=== PATIENT | female | born 1955 | race African-American/Black ===

== ENCOUNTER 2018-08-30 13:44 | Inpatient (IN) | END 2018-09-02 17:45 | disposition home or self-care (01) | DRG 305 ==

== ENCOUNTER 2018-11-20 08:28 | Inpatient (IN) | END 2018-11-22 11:40 | disposition left against medical advice (07) | DRG 189 ==

== ENCOUNTER 2019-01-12 10:21 | Inpatient (IN) | payer OTHER ==
[~2019-01-12] VITALS: Ht 157.5 cm; Wt 59.6 kg
[~2019-01-12 10:21] MED LIST: DOCU100T PO; FLUT1AER INHALATION; IPRA3AMP29 INHALATION; METO-319 PO; NIFE60TA18 PO; PANT40TA3 PO; TIOT18CA INHALATION
[2019-01-12 12:42] VITALS: PULSE 91
[2019-01-12 12:51] VITALS: Ht 157.5 cm; Wt 59.6 kg
[2019-01-12] MEDS ORDERED: morphine 2 MG INJ IV PRN (13:30)
[2019-01-12] MEDS ORDERED: DOCUSATE SODIUM 100 MG CAP PO PRN (13:30)
[2019-01-12] MEDS ORDERED: NACL 0.9% 3 ML SYG IV SCH (13:30)
[2019-01-12] MEDS ORDERED: HYDROCODONE/APAP (5/325) TAB PO PRN (13:30)
[2019-01-12] MEDS ORDERED: ACETAMINOPHEN 325 MG TAB PO PRN (13:30)
[2019-01-12] MEDS ORDERED: MAGNESIUM HYDROXIDE 30ML CUP PO PRN (13:30)
[2019-01-12 13:40] VITALS: BP 186/121; PULSE 91; RESP 18
[2019-01-12] MEDS ORDERED: FURO20TA3 PO (14:40)
[2019-01-12] MEDS ORDERED: ISOS60TA PO (14:40)
[2019-01-12] MEDS ORDERED: CARV25TA79 PO (14:40)
[2019-01-12] MEDS ORDERED: ASPI-903 PO (14:51)
[2019-01-12] MEDS ORDERED: CLON1PAT3 TD (14:51)
--- NOTE | 2019-01-12 15:06 | HP ---
DATE OF ADMISSION: 01/12/2019 IDENTIFICATION: This is a 63-year-old female transferred from outside hospital. CHIEF COMPLAINT: Shortness of breath. HISTORY OF PRESENT ILLNESS: A 63-year-old female with past medical history based on records of quest ionable COPD, CHF, CKD, anemia, hypertension, drug abuse, questionable hepatitis C, who was transferr ed from outside hospital due to shortness of breath symptoms. The patient has been having these symp toms over the last few weeks. She has also been complaining of PND, but no chest pain, no nausea, vo miting, no fevers or chills, no abdominal pain, no headaches. When she went to the outside hospital, she had some labs performed that showed elevated BNP of 19,000. She also had a chest x-ray performe d that showed signs of possible CHF and small bilateral pleural effusions. She was given a dose of L asix as well as antibiotics at the outside hospital before being transferred here. The patient was a lso found with a creatinine of 3.39. When she was here at the hospital back in 10/2018, her creatini ne at that time was 2.76. PAST MEDICAL HISTORY: As stated above, bilateral renal artery stenosis. ALLERGIES: NO KNOWN DRUG ALLERGIES. HOME MEDICATIONS: 1. Aspirin 81 mg. 2. Coreg 25 mg twice a day. 3. Clonidine 0.3 mg patch daily. 4. Imdur 30 mg daily. 5. Nifedipine 60 mg daily. PAST SURGICAL HISTORY: Unknown. SOCIAL HISTORY: Smokes everyday, 1 pack a day, unclear how long she has been smoking. Denies alcoho l use. She has positive history of cocaine, marijuana and methamphetamine use. Apparently, she is s till using this. FAMILY HISTORY: Noncontributory. PHYSICAL EXAMINATION: VITAL SIGNS: Today, T-max 97.8, pulse 82 to 105, respirations 16 to 25, blood pressure 200 to 156 sy stolic over 109 to 96 diastolic, satting 100% room air. GENERAL: The patient is lying in bed, answering questions appropriately, in no acute distress. HEENT: Pupils are equal, round, reactive to light. Extraocular muscles are intact. NECK: Supple. No thyromegaly. LUNGS: Slightly distant breath sounds bilaterally. CARDIOVASCULAR: S1, S2 heard. No rubs or gallops. ABDOMEN: Soft, nontender, nondistended. Normal bowel sounds. No rebound or guarding. MUSCULOSKELETAL: Trace pitting edema bilateral lower extremities to the mid calves. NEUROLOGIC: No focal deficits. LABORATORIES: WBC 13.8, hemoglobin 10.3, hematocrit 33.1, platelets 151. She had a troponin perform ed there that was normal. Sodium 139, potassium 4.1, chloride 102, CO2 of 19, BUN of 65, creatinine 3.39, glucose 124. Again, the BNP is 19,000. DIAGNOSTIC DATA: I mentioned the chest x-ray findings. ASSESSMENT AND PLAN: A 63-year-old female with prior history of chronic kidney disease, questionable chronic obstructive pulmonary disease, congestive heart failure, hypertension, bilateral renal arter y stenosis, questionable hepatitis C and anemia who comes in with shortness of breath with signs of c ongestive heart failure exacerbation and also acute on chronic renal insufficiency. 1. Shortness of breath again likely secondary to congestive heart failure exacerbation. Admit the p atient. Keep head of the bed greater than 30 degrees. Repeat the echocardiogram. Consider cardiolo gy consult. Put her on Lasix cautiously for now. Monitor ins and outs. Check TSH, A1c, lipid panel . Monitor daily weights. Get PT, OT consults. 2. Possible upper respiratory infection. She does have a white count of 13.8. No fevers, but her c hest x-ray did show signs of some mild infiltrates, fluid versus otherwise, so we will put her on Lev aquin for now, Tylenol p.r.n. pain and fevers. Follow up final culture results. 3. Acute on chronic kidney disease. Again, creatinine appears to be more elevated than when she was last here at this hospital 2 months ago, so we will monitor BUN and creatinine levels very carefully and urine output and we will get a renal consult as well. 4. History of hypertension. She presented at the outside hospital with mild hypertensive urgency. Blood pressure is presently stable for now. Continue hydralazine p.r.n. Consider restarting her melanie nidine which she takes at home. 5. Possible history of bilateral renal artery stenosis. Again, we will follow up renal recommendati ons and monitor for now including vital signs. 6. Deep venous thrombosis prophylaxis, heparin subcutaneously. 7. Gastrointestinal prophylaxis, proton pump inhibitor. Dictated By: MICHAEL MOLINA Conf#: [id number] DID#: [id number] CC: CORINA GARCIA MD; KINZA MONTENEGRO MD;*[facility]*
--- NOTE | 2019-01-12 15:20 | RADRPT ---
Echocardiogram Report Patient Name: Francy KEENANnt ID: [id number] : 1955 (63y 1m)Study Date: 01/12/2019 1:23:12 PM Gender: FAccession #: [id number] Tech: Chelsi Umanzor [facility] Location: [facility] Ref.Physician: MICHAEL STARR Height(Cm): BSA: Weight(Kg): Quality: AdequateAccount #: Procedures: Echocardiographic Report: Transthoracic echocardiogram with complete 2D, M-Mode, and doppler examination. Indications: Shortness of breath. Measurements: 2D/M Mode Doppler Measurement Value Normal Range Measurement Value Normal Range LVIDd 2D 3.4 [ 3.8 - 5.2 ] cm AV Peak Deshaun 1.4 [ 100.0 - 170.0 ] cm/sec LVIDs 2D 2.4 [ 2.2 - 3.5 ] cm AV Peak PG 8.0 [ 2.0 - 9.0 ] mmHg LVPWd 2D 1.5 [ 0.6 - 0.9 ] cm LVOT Peak Deshaun 0.8 [ 70.0 - 110.0 ] cm/sec IVSd 2D 1.5 [ 0.6 - 0.9 ] cm LVOT Peak PG 2.0 [ 2.0 - 6.0 ] mmHg AoR Diam 2D 2.6 [ 2.3 - 3.1 ] cm MV E Peak Deshaun 0.6 [ 60.0 - 130.0 ] cm/sec EDV 2D 46.8 [ 46.0 - 106.0 ] ml MV A Peak Deshaun 0.7 [ 100.0 - 120.0 ] cm/sec ESV 2D 20.2 [ 14.0 - 42.0 ] ml MV E/A 0.9 [ 0.8 - 1.5 ] ratio EF 2D 56.8 [ 54.0 - 74.0 ] percent MV Decel Time 155 [ 104 - 258 ] msec LA Dimen 2D 4.1 [ 2.7 - 3.8 ] cm Lat E` Deshaun 0.1 [ 10.0 - 15.0 ] cm/sec Lateral E/E` 10.3 [ 1.0 - 2.0 ] ratio MV E/A 0.9 [ 0.8 - 1.5 ] ratio TR Peak Deshaun 2.4 [ 100.0 - 280.0 ] cm/sec TR Peak PG 23.0 mmHg RVSP 31.0 [ 10.0 - 36.0 ] mmHg RA Pressure 8.0 mmHg Findings: Left Ventricle: Normal left ventricular systolic function. Normal left ventricular cavity size. Severe concentric left ventricular hypertrophy. Ejection fraction is visually estimated at 65 %. Tissue Doppler/Mitral Doppler indices are consistent with impaired relaxation (Stage I diastolic dysfunction). Right Ventricle: Normal right ventricular size. Normal right ventricular systolic function. Left Atrium: There is mild enlargement of left atrium. Right Atrium: The right atrium is normal in size. Mitral Valve: Mitral valve leaflets appear mildly thickened. Mild mitral annular calcification. Mild mitral valve regurgitation. Aortic Valve: Normal appearance of the aortic valve. No significant aortic stenosis or insufficiency. Tricuspid Valve: Normal appearance of the tricuspid valve. Estimated peak PA systolic pressure 31 mmHg. There is mild tricuspid regurgitation. Pulmonic Valve: Normal pulmonic valve appearance. Pericardium: Normal pericardium with no significant pericardial effusion. Aorta: Normal aortic root. IVC: Normal size and no respiratory collapse consistent with elevated right atrial pressure. Conclusions: Normal left ventricular systolic function. Normal left ventricular cavity size. Severe concentric left ventricular hypertrophy. Ejection fraction is visually estimated at 65 %. Tissue Doppler/Mitral Doppler indices are consistent with impaired relaxation (Stage I diastolic dysfunction). Normal right ventricular size. Normal right ventricular systolic function. There is mild enlargement of left atrium. The right atrium is normal in size. Mild mitral valve regurgitation. No significant aortic stenosis or insufficiency. Estimated peak PA systolic pressure 31 mmHg. There is mild tricuspid regurgitation. Normal pericardium with no significant pericardial effusion. Electronically Signed By: Marcello Edwards 2019-01-12 15:19:44 PST
[2019-01-12] MEDS: LORAZEPAM 2 MG INJ IV PRN (15:43)
[2019-01-12] MEDS: ALBUTEROL/IPRATROPIUM (NEB) 3 ML AMP HHN PRN (15:47)
[2019-01-12 16:00] VITALS: PULSE 93
[2019-01-12 17:00] VITALS: BP 181/104; PULSE 98
--- NOTE | 2019-01-12 18:23 | QN ---
Documentation Comment SEEN AND EXAMINED JESSICA NOLAN MD Jan 12, 2019 18:23
[2019-01-12] MEDS ORDERED: CLONIDINE 0.3 MG/24 HR PATCH TRANSDERM SCH (18:30)
[2019-01-12] MEDS: NIFEdipine (XL) 60 MG TAB PO SCH (18:51)
[2019-01-12] MEDS: ISOSORBIDE MONONITRATE(SR)60 MG TAB PO SCH (18:51)
--- NOTE | 2019-01-12 19:11 | CONS ---
DATE OF ADMISSION: 01/12/2019 DATE OF CONSULTATION: TYPE OF CONSULTATION: Renal. REASON FOR ADMISSION: Possible acute on chronic renal failure. HISTORY OF PRESENTING ILLNESS: This is a 63-year-old -Italian lady with a past medical history of congestive heart failure, COPD, CKD stage III-B, anemia, hypertension, drug abuse, history of a questionable renal artery stenosis as per mentioned in the notes, hepatitis C, transferred from outside hospital secondary to shortness of breath for 1 day. The patient said that she has been having symptoms over the past few weeks were worse for 1 day. She is complaining of PND. No chest pain. The patient went to [facility]. There, the patient was found to have sodium 139, potassium 4.1, chloride 109, bicarbonate 19, BUN of 65, creatinine 3.39. Of note, the patient had multiple AKIs in the past. In 10/2018, creatinine was 4.22 here in the hospital and on discharge was 3.59, then again she was admitted and creatinine on 11/17/2018 was 2.26. In the outside hospital, the patient was found to have BNP of 19,000. A chest x-ray showed CHF and small bilateral effusion. She was given dose of Lasix and was transferred to [facility]. PAST MEDICAL HISTORY: 1. Hypertension. 2. Hyperlipidemia. 3. Hypercholesterolemia. 4. Hypertension, uncontrolled. 5. Bilateral renal artery stenosis; however no renal ultrasound can be found. ALLERGIES: NONE. MEDICATIONS TAKING AT HOME: 1. Aspirin 81. 2. Coreg 25 b.i.d. 3. Clonidine 0.3 mg patch daily. 4. Imdur 30. 5. Nifedipine 60. PAST SURGICAL HISTORY: None. SOCIAL HISTORY: Smokes 1 pack of cigarettes per day. Denies any alcohol use. The patient has a positive history of cocaine, marijuana, amphetamine. FAMILY HISTORY: Noncontributory. REVIEW OF SYSTEMS: The patient has some shortness of breath. Some orthopnea, PND. Has some lower extremity edema. Denies any headache, any blurry vision. Denies any hematemesis, any melena. Denies any focal neurological deficit. PHYSICAL EXAMINATION: VITAL SIGNS: T-max is 97.8, pulse 82, respirations 16, blood pressure 200 to 156 systolic over 109, saturating 100% on room air. GENERAL: The patient is lying in bed, answering questions appropriately. HEENT: Pupils are equal, round, reactive to light. NECK: Supple. JVD appreciated. LUNGS: Decreased breath sounds bilaterally. HEART: Normal S1, S2. No rubs, murmurs or gallop. ABDOMEN: Soft, nontender, nondistended. EXTREMITIES: There is trace pitting edema. LABORATORY DATA: White count there was 13.8, hemoglobin 10.3, platelet count 151. Troponin performed there was normal. Sodium 139, potassium 4.1, chloride 102, bicarbonate of 19, BUN of 65, creatinine 3.39. BNP was 19,000. DIAGNOSTIC DATA: Chest x-ray shows chronic congestive heart failure. ASSESSMENT AND PLAN: This is a 63-year-old female who presented with: 1. Shortness of breath likely secondary to congestive heart failure. worsening renal disease 2. acute on chronic renal disease. On last admission in 10/2018, already creatinine was in 3.59 and then had peaked up to 4.2 and on discharge was 2.76; however on this admission was 3.39. It could be very well because of cardiorenal disease versus worsening of renal artery stenosis. The patient has history of hepatitis C, could be possibility of some glomerulonephritis as well. Pt has been non compliant with meds 3. History of proteinuria. 4. Hypertension, uncontrolled. We will evaluate for renal artery stenosis. I am not sure if patient is compliant with her medications. 5. History of hepatitis C. PLAN: 1. At this period of time, the patient is admitted to telemetry. 2. We will continue the patient on Lasix 40 IV daily. 3. We will check for UA. 4. We will check for proteinuria. 5. Continue the patient on home blood pressure medicines which have not been started yet 6. We will get the renal Doppler to rule out renal artery stenosis. 7. Cardiology consultation should be requested. 8. Echo should be requested. Rest of the treatment will depend on the patient's hospitalization course. Dictated By: JESSICA KELLEY/MICHELLE Conf#: [id number] DID#: [id number] CC: CORINA GARCIA MD; KINZA MONTENEGRO MD;*[facility]* MTDD
[2019-01-12 20:01] VITALS: BP 185/110; PULSE 99; RESP 19
[2019-01-12 20:13] VITALS: PULSE 102
[2019-01-12] MEDS: HEPARIN 5,000 UNIT/1 ML VIAL SC SCH (20:48)
[2019-01-13] VITALS (12 sets, daily range): BP systolic 101–173; BP diastolic 64–95; PULSE 63–104; RESP 16–18
[2019-01-13] MEDS: NITROGLYCERIN (SL) 0.4 MG TAB SL PRN (03:53)
[2019-01-13] MEDS: PANTOPRAZOLE (EC) 40 MG TAB PO SCH (05:24)
[2019-01-13] MEDS ORDERED: FUROSEMIDE 40 MG INJ IV SCH ×2 (09:00)
[2019-01-13] MEDS ORDERED: LEVOFLOXACIN 750MG/D5W (PMX) 150 ML IVPB SCH (09:00)
[2019-01-13] MEDS: ISOSORBIDE MONONITRATE(SR)60 MG TAB PO SCH (09:21)
[2019-01-13] MEDS: NIFEdipine (XL) 60 MG TAB PO SCH (09:21)
[2019-01-13] MEDS: HEPARIN 5,000 UNIT/1 ML VIAL SC SCH ×2 (09:24→21:24)
[2019-01-13] MEDS: LORAZEPAM 2 MG INJ IV PRN (11:29)
--- NOTE | 2019-01-13 12:34 | CONS ---
[facility] Rosie [facility] Unit Number: [id number] Date of : 1955 Patient Status: Admitted Inpatient Attending Doctor: Lilliana Smallwood Edit: JESSICA NOLAN MD on 01/13/19 @ 17:21 SEEN and examined with SECURITY RESEARCHER Acute om chronic renal failure? ATN/CARDIORENA; Renal doppler pending hold lasix uA 1+proteinuria bp control Assessment/Plan Assessment/Plan Hospital Course (Demo Recall) 1. Shortness of breath likely secondary to congestive heart failure. 2. Questionable acute on chronic renal disease. On last admission in 10/2018, already creatinine was in 3.59 and then had peaked up to 4.2 and on discharge was 2.76; however on this admission was 3.39. It could be very well because of cardiorenal disease versus worsening of renal artery stenosis. The patient has history of hepatitis C, could be possibility of some glomerulonephritis as well. 3. History of proteinuria. 4. Hypertension, controlled in house. We will evaluate for renal artery stenosis. Pt is more likely is not compliant with medications at home 5. History of hepatitis C. Assessment/Plan (Daily) 1. Avoid nephrotoxic drugs 2. C/w Lasix 40 IV daily. 3. Start phosphorus binding medication 4. Mild proteinuria, nephrotic syndrome. 5. Continue the patient on home blood pressure medicines. 6. Renal Doppler to rule out renal artery stenosis pending. 7. Cardiology consultation should be requested. 8. Echo 65 % function preserved. 9. renally dose all medications Consultation Date/Type/Reason Admit Date/Time Jan 12, 2019 at 12:23 Initial Consult Date 01/12/2019 Type of Consult nephrology Reason for Consultation Dr Manzo Date/Time of Note DATE: 01/13/19 TIME: 12:29 Exam/Review of Systems Exam Vitals Vital Signs Date Temp Pulse Resp B/P (MAP) Pulse Ox O2 O2 Flow FiO2 Time Delivery Rate 01/13/19 72 12:13 01/13/19 98.3 18 119/78 98 Nasal 11:48 (92) Cannula 01/13/19 2.0 08:00 01/12/19 28 15:49 Intake and Output 01/12/19 01/12/19 01/13/19 1515:00 23:00 07:00 IntakeIntake Total 200 ml 250 ml BalanceBalance 200 ml 250 ml Constitutional: alert, oriented Respiratory: clear to auscultation Cardiovascular: regular rate and rhythm Gastrointestinal: soft Results Result Diagram: 01/13/19 0705 01/13/19 0704 Results 24hrs Laboratory Tests Test 01/12/19 14:08 01/12/19 14:45 01/13/19 07:04 01/13/19 07:05 Prothrombin Time 13.8 Prothrombin Time 1.1 Ratio INR International 1.05 Normalized Ratio Activated 44.9 H Partial Thromboplast Time Free Thyroxine 1.23 Urine Color STRAW Urine Clarity CLEAR Urine pH 5.0 Urine Specific 1.009 [place] Urine Ketones NEGATIVE Urine Nitrite NEGATIVE Urine Bilirubin NEGATIVE Urine Urobilinogen NEGATIVE Urine Leukocyte NEGATIVE Esterase Urine Microscopic 4 RBC Urine Microscopic 1 WBC Urine Squamous FEW Epithelial Cells Urine Hemoglobin 1+ H Urine Random Sodium 117 H Urine Glucose NEGATIVE Urine Total Protein 1+ H Sodium Level 141 Potassium Level 4.1 Chloride Level 110 Carbon Dioxide Level 21 Anion Gap 10 Blood Urea Nitrogen 67 H Creatinine 3.67 H Est Glomerular 15 L Filtrat Rate mL/min Glucose Level 100 Hemoglobin A1c 5.9 Calcium Level 8.4 Phosphorus Level 5.7 H Magnesium Level 2.0 Triglycerides Level 88 Cholesterol Level 166 LDL Cholesterol, 105 Calculated HDL Cholesterol 43 Cholesterol/HDL 3.8 Ratio Thyroid Stimulating 3.290 Hormone (TSH) White Blood Count 6.5 # Red Blood Count 3.63 L Hemoglobin 8.5 L Hematocrit 28.3 L Mean Corpuscular 78.0 L Volume Mean Corpuscular 23.4 L Hemoglobin Mean Corpuscular 30.0 L Hemoglobin Concent Red Cell 18.2 H Distribution Width Platelet Count 180 # Mean Platelet Volume 9.6 Immature 0.500 H Granulocytes % Neutrophils % 76.3 Lymphocytes % 13.5 L Monocytes % 7.3 Eosinophils % 1.9 Basophils % 0.5 Nucleated Red Blood 0.0 Cells % Immature 0.030 Granulocytes # Neutrophils # 4.9 Lymphocytes # 0.9 Monocytes # 0.5 Eosinophils # 0.1 Basophils # 0.0 Nucleated Red Blood 0.0 Cells # Medications Medication Current Medications IV Flush (NS 3 ml) 3 ml PER PROTOCOL IV ; Start 01/12/19 at 13:30 Ondansetron HCl (Zofran Inj) 4 mg Q6H PRN IV NAUSEA/VOMITING; Start 01/12/19 at 13:30 Acetaminophen (Tylenol Tab) 650 mg Q6H PRN PO .PAIN 1-3 OR TEMP; Start 01/12/19 at 13:30 Acetaminophen/ Hydrocodone Bitart ([place]erson (5/325)) 1 tab Q6H PRN PO .MOD PAIN 4- 6; Start 01/12/19 at 13:30 Morphine Sulfate (morphine) 2 mg Q4H PRN IV .SEVERE PAIN 7-10; Start 01/12/19 at 13:30 Docusate Sodium (Colace) 100 mg Q12H PRN PO .CONSTIPATION; Start 01/12/19 at 13:30 Magnesium Hydroxide (Milk Of Mag) 30 ml DAILY PRN PO .CONSTIPATION; Start 01/12/19 at 13:30 Pantoprazole (Protonix Tab) 40 mg DAILY@06 PO Last administered on 01/13/19at 05:24; Admin Dose 40 MG; Start 01/13/19 at 06:00 Heparin Sodium (Porcine) (Heparin (5000 Units/1ml)) 5,000 unit Q12 SC Last administered on 01/13/19at 09:24; Admin Dose 5,000 UNIT; Start 01/12/19 at 21:00 Lorazepam (Ativan) 0.5 mg Q6H PRN IV ANXIETY Last administered on 01/13/19at 11:29; Admin Dose 0.5 MG; Start 01/12/19 at 13:30 Albuterol/ Ipratropium (Duoneb) 3 ml Q4H RESP THERAPY PRN HHN SHORTNESS OF BREATH Last administered on 01/12/19at 15:47; Admin Dose 3 ML; Start 01/12/19 at 13:30 Levofloxacin/ Dextrose 150 ml @ 100 mls/hr Q48H IVPB Last administered on 01/13/19at 09:20; Admin Dose 100 MLS/HR; Start 01/13/19 at 09:00 Hydralazine HCl (Apresoline) 10 mg Q6H PRN IV ELEVATED BLOOD PRESSURE; Start 01/12/19 at 13:30 Nitroglycerin (Nitroglycerin (Sl Tab) 0.4 Mg) 1 tab Q5M PRN SL ANGINA Last administered on 01/13/19 03:53; Admin Dose 1 TAB; Start 01/12/19 at 13:30 Carvedilol (Coreg) 25 mg BID PO Last administered on 01/13/19 09:22; Admin Dose 25 MG; Start 01/12/19 at 21:00 Clonidine HCl (Catapres-Tts 3 Patch) 0.3 patch Q7D TRANSDERM Last administered on 01/12/19 20:44; Admin Dose 0.3 PATCH; Start 01/12/19 at 18:30 Isosorbide Mononitrate (Imdur) 60 mg DAILY PO Last administered on 01/13/19 09:21; Admin Dose 60 MG; Start 01/12/19 at 18:30 Nifedipine (Procardia Xl) 60 mg DAILY PO Last administered on 01/13/19 09:21; Admin Dose 60 MG; Start 01/12/19 at 18:30 BRET BORDEN Jan 13, 2019 12:34
--- NOTE | 2019-01-13 15:19 | PN ---
Date/Time of Note Date/Time of Note DATE: 01/13/19 TIME: 14:39 Assessment/Plan VTE Prophylaxis Risk score (from Nsg)>0 risk: 2 SCD applied (from Nsg): Yes Pharmacological prophylaxis: other Lines/Catheters IV Catheter Type (from Nrs): Saline Lock Assessment/Plan Hospital Course S: Pt had no acute events overnight. Seen by CV and renal teams. O: VS - see below PHYSICAL EXAMINATION: GENERAL: lying in bed, answering questions appropriately, in no acute distress. HEENT: Pupils are equal, round, reactive to light. Extraocular muscles are intact. NECK: Supple. No thyromegaly. LUNGS: Slightly distant breath sounds bilaterally. CARDIOVASCULAR: S1, S2 heard. No rubs or gallops. ABDOMEN: Soft, nontender, nondistended. Normal bowel sounds. No rebound or guarding. MUSCULOSKELETAL: Trace pitting edema bilateral lower extremities to the mid calves. NEUROLOGIC: No focal deficits. ASSESSMENT AND PLAN: 63-year-old female with prior history of chronic kidney disease, questionable chronic obstructive pulmonary disease, congestive heart failure, hypertension, bilateral renal artery stenosis, questionable hepatitis C and anemia who comes in with shortness of breath with signs of congestive heart failure exacerbation and also acute on chronic renal insufficiency. 1. Shortness of breath - slowly resolving now, smpts secondary to congestive heart failure exacerbation. -Continue to keep head of the bed greater than 30 degrees, and continue current IV Lasix frequency and dose cautiously for now. - Monitor ins and outs, daily weights follow-up recommendations from PT, OT consults. -Follow-up renal recommendations 2. Possible upper respiratory infection-she presented with white count of 13.8, but trending down now per no fevers, but her chest x-ray did show signs of some mild infiltrates, fluid versus otherwise. - Continue current antibiotics Levaquin for now, Tylenol p.r.n. pain and fevers. - Follow up final culture results. 3. Acute on chronic kidney disease -Per renal team, on last admission in 10/2018, already creatinine was in 3.59 and then had peaked up to 4.2 and on discharge was 2.76; however on this admission was 3.39. Today slightly higher 3.67 - it could be very well because of cardiorenal disease versus worsening of renal artery stenosis. The patient has history of hepatitis C, could be possibility of some glomerulonephritis as well. -Continue Lasix at current dose, phosphate binder, monitor BUN and creatinine levels very carefully -Follow-up further renal studies. Of note patient had a renal ultrasound with arterial Doppler performed November 08, 2018: It showed ultrasound evidence of severe bilateral renal artery stenoses. 4. History of hypertension. She presented at the outside hospital with mild hypertensive urgency, but this has resolved now. -Monitor, continue hydralazine p.r.n. - Consider restarting her clonidine which she takes at home. Result Diagram: 01/13/19 0705 01/13/19 0704 Results 24hrs Laboratory Tests Test 01/12/19 14:45 01/13/19 07:04 01/13/19 07:05 Urine Color STRAW Urine Clarity CLEAR Urine pH 5.0 Urine Specific [place] 1.009 Urine Ketones NEGATIVE Urine Nitrite NEGATIVE Urine Bilirubin NEGATIVE Urine Urobilinogen NEGATIVE Urine Leukocyte Esterase NEGATIVE Urine Microscopic RBC 4 Urine Microscopic WBC 1 Urine Squamous Epithelial Cells FEW Urine Hemoglobin 1+ H Urine Random Sodium 117 H Urine Glucose NEGATIVE Urine Total Protein 1+ H Sodium Level 141 Potassium Level 4.1 Chloride Level 110 Carbon Dioxide Level 21 Anion Gap 10 Blood Urea Nitrogen 67 H Creatinine 3.67 H Est Glomerular Filtrat Rate mL/min 15 L Glucose Level 100 Hemoglobin A1c 5.9 Calcium Level 8.4 Phosphorus Level 5.7 H Magnesium Level 2.0 Triglycerides Level 88 Cholesterol Level 166 LDL Cholesterol, Calculated 105 HDL Cholesterol 43 Cholesterol/HDL Ratio 3.8 Thyroid Stimulating Hormone (TSH) 3.290 White Blood Count 6.5 # Red Blood Count 3.63 L Hemoglobin 8.5 L Hematocrit 28.3 L Mean Corpuscular Volume 78.0 L Mean Corpuscular Hemoglobin 23.4 L Mean Corpuscular Hemoglobin Concent 30.0 L Red Cell Distribution Width 18.2 H Platelet Count 180 # Mean Platelet Volume 9.6 Immature Granulocytes % 0.500 H Neutrophils % 76.3 Lymphocytes % 13.5 L Monocytes % 7.3 Eosinophils % 1.9 Basophils % 0.5 Nucleated Red Blood Cells % 0.0 Immature Granulocytes # 0.030 Neutrophils # 4.9 Lymphocytes # 0.9 Monocytes # 0.5 Eosinophils # 0.1 Basophils # 0.0 Nucleated Red Blood Cells # 0.0 Exam/Review of Systems Exam Vitals Vital Signs Date Temp Pulse Resp B/P (MAP) Pulse Ox O2 O2 Flow FiO2 Time Delivery Rate 01/13/19 72 12:13 01/13/19 98.3 18 119/78 98 Nasal 11:48 (92) Cannula 01/13/19 2.0 08:00 01/12/19 28 15:49 Intake and Output 01/12/19 01/12/19 01/13/19 1515:00 23:00 07:00 IntakeIntake Total 200 ml 250 ml BalanceBalance 200 ml 250 ml Results Results 24hrs Laboratory Tests Test 01/12/19 14:45 01/13/19 07:04 01/13/19 07:05 Urine Color STRAW Urine Clarity CLEAR Urine pH 5.0 Urine Specific [place] 1.009 Urine Ketones NEGATIVE Urine Nitrite NEGATIVE Urine Bilirubin NEGATIVE Urine Urobilinogen NEGATIVE Urine Leukocyte Esterase NEGATIVE Urine Microscopic RBC 4 Urine Microscopic WBC 1 Urine Squamous Epithelial Cells FEW Urine Hemoglobin 1+ H Urine Random Sodium 117 H Urine Glucose NEGATIVE Urine Total Protein 1+ H Sodium Level 141 Potassium Level 4.1 Chloride Level 110 Carbon Dioxide Level 21 Anion Gap 10 Blood Urea Nitrogen 67 H Creatinine 3.67 H Est Glomerular Filtrat Rate mL/min 15 L Glucose Level 100 Hemoglobin A1c 5.9 Calcium Level 8.4 Phosphorus Level 5.7 H Magnesium Level 2.0 Triglycerides Level 88 Cholesterol Level 166 LDL Cholesterol, Calculated 105 HDL Cholesterol 43 Cholesterol/HDL Ratio 3.8 Thyroid Stimulating Hormone (TSH) 3.290 White Blood Count 6.5 # Red Blood Count 3.63 L Hemoglobin 8.5 L Hematocrit 28.3 L Mean Corpuscular Volume 78.0 L Mean Corpuscular Hemoglobin 23.4 L Mean Corpuscular Hemoglobin Concent 30.0 L Red Cell Distribution Width 18.2 H Platelet Count 180 # Mean Platelet Volume 9.6 Immature Granulocytes % 0.500 H Neutrophils % 76.3 Lymphocytes % 13.5 L Monocytes % 7.3 Eosinophils % 1.9 Basophils % 0.5 Nucleated Red Blood Cells % 0.0 Immature Granulocytes # 0.030 Neutrophils # 4.9 Lymphocytes # 0.9 Monocytes # 0.5 Eosinophils # 0.1 Basophils # 0.0 Nucleated Red Blood Cells # 0.0 Medications Medication Current Medications IV Flush (NS 3 ml) 3 ml PER PROTOCOL IV ; Start 01/12/19 at 13:30 Ondansetron HCl (Zofran Inj) 4 mg Q6H PRN IV NAUSEA/VOMITING; Start 01/12/19 at 13:30 Acetaminophen (Tylenol Tab) 650 mg Q6H PRN PO .PAIN 1-3 OR TEMP; Start 01/12/19 at 13:30 Acetaminophen/ Hydrocodone Bitart ([place] (5/325)) 1 tab Q6H PRN PO .MOD PAIN 4- 6; Start 01/12/19 at 13:30 Morphine Sulfate (morphine) 2 mg Q4H PRN IV .SEVERE PAIN 7-10; Start 01/12/19 at 13:30 Docusate Sodium (Colace) 100 mg Q12H PRN PO .CONSTIPATION; Start 01/12/19 at 13:30 Magnesium Hydroxide (Milk Of Mag) 30 ml DAILY PRN PO .CONSTIPATION; Start 01/12/19 at 13:30 Pantoprazole (Protonix Tab) 40 mg DAILY@06 PO Last administered on 01/13/19at 05:24; Admin Dose 40 MG; Start 01/13/19 at 06:00 Heparin Sodium (Porcine) (Heparin (5000 Units/1ml)) 5,000 unit Q12 SC Last administered on 01/13/19at 09:24; Admin Dose 5,000 UNIT; Start 01/12/19 at 21:00 Lorazepam (Ativan) 0.5 mg Q6H PRN IV ANXIETY Last administered on 01/13/19 11:29; Admin Dose 0.5 MG; Start 01/12/19 at 13:30 Albuterol/ Ipratropium (Duoneb) 3 ml Q4H RESP THERAPY PRN HHN SHORTNESS OF BREATH Last administered on 01/12/19at 15:47; Admin Dose 3 ML; Start 01/12/19 at 13:30 Levofloxacin/ Dextrose 150 ml @ 100 mls/hr Q48H IVPB Last administered on 01/13/19 09:20; Admin Dose 100 MLS/HR; Start 01/13/19 at 09:00 Hydralazine HCl (Apresoline) 10 mg Q6H PRN IV ELEVATED BLOOD PRESSURE; Start 01/12/19 at 13:30 Nitroglycerin (Nitroglycerin (Sl Tab) 0.4 Mg) 1 tab Q5M PRN SL ANGINA Last administered on 01/13/19at 03:53; Admin Dose 1 TAB; Start 01/12/19 at 13:30 Carvedilol (Coreg) 25 mg BID PO Last administered on 01/13/19 09:22; Admin Dose 25 MG; Start 01/12/19 at 21:00 Clonidine HCl (Catapres-Tts 3 Patch) 0.3 patch Q7D TRANSDERM Last administered on 01/12/19at 20:44; Admin Dose 0.3 PATCH; Start 01/12/19 at 18:30 Isosorbide Mononitrate (Imdur) 60 mg DAILY PO Last administered on 01/13/19 09:21; Admin Dose 60 MG; Start 01/12/19 at 18:30 Nifedipine (Procardia Xl) 60 mg DAILY PO Last administered on 01/13/19 09:21; Admin Dose 60 MG; Start 01/12/19 at 18:30 Calcium Acetate (Phoslo) 667 mg WITH MEALS PO ; Start 01/13/19 at 17:55 MICHAEL STARR Jan 13, 2019 14:52
[2019-01-13] MEDS: ONDANSETRON 4 MG INJ IV PRN (16:37)
[2019-01-13] MEDS: CALCIUM ACETATE 667 MG CAP PO SCH (18:06)
[2019-01-14] VITALS (10 sets, daily range): BP systolic 84–115; BP diastolic 55–78; PULSE 68–78; RESP 16–18
[2019-01-14] MEDS: PANTOPRAZOLE (EC) 40 MG TAB PO SCH (06:05)
[2019-01-14] MEDS: NIFEdipine (XL) 60 MG TAB PO SCH (09:00)
[2019-01-14] MEDS: CALCIUM ACETATE 667 MG CAP PO SCH ×3 (09:00→19:21)
[2019-01-14] MEDS: ISOSORBIDE MONONITRATE(SR)60 MG TAB PO SCH (09:00)
[2019-01-14] MEDS: HEPARIN 5,000 UNIT/1 ML VIAL SC SCH ×2 (09:07→21:34)
[2019-01-14] MEDS: ONDANSETRON 4 MG INJ IV PRN ×2 (09:53→19:38)
--- NOTE | 2019-01-14 11:34 | PN ---
Date/Time of Note Date/Time of Note DATE: 01/14/19 TIME: 11:31 Assessment/Plan VTE Prophylaxis Risk score (from Ns)>0 risk: 2 SCD applied (from Nsg): Yes Pharmacological prophylaxis: other Lines/Catheters IV Catheter Type (from Nrs): Saline Lock Assessment/Plan Hospital Course S: Pt seen by renal team yesterday. No acute events overnight. O: VS - see below PHYSICAL EXAMINATION: GENERAL: lying in bed, no acute distress. HEENT: Pupils are equal, round, reactive to light. Extraocular muscles are intact. NECK: Supple. No thyromegaly. LUNGS: Slightly distant breath sounds bilaterally. CARDIOVASCULAR: S1, S2 heard. No rubs or gallops. ABDOMEN: Soft, nontender, nondistended. Normal bowel sounds. No rebound or guarding. MUSCULOSKELETAL: Trace pitting edema bilateral lower extremities to the mid calves. NEUROLOGIC: No focal deficits. ASSESSMENT AND PLAN: 63-year-old female with prior history of chronic kidney disease, questionable chronic obstructive pulmonary disease, congestive heart failure, hypertension, bilateral renal artery stenosis, questionable hepatitis C and anemia who comes in with shortness of breath with signs of congestive heart failure exacerbation and also acute on chronic renal insufficiency. 1. Shortness of breath - slowly resolving now, smpts secondary to congestive heart failure exacerbation. -Continue to keep head of the bed greater than 30 degrees, and continue current IV Lasix frequency and dose cautiously for now. - Monitor ins and outs, daily weights follow-up recommendations from PT, OT consults. -Follow-up renal recommendations 2. Possible upper respiratory infection-on admission chest x-ray did show signs of some mild infiltrates, fluid versus otherwise. - Continue current antibiotics Levaquin for now, Tylenol p.r.n. pain and fevers. - Follow up final culture results. 3. Acute on chronic kidney disease - Per renal team, on last admission in 10/2018 already creatinine was in 3.59 and then had peaked up to 4.2 and on d ischarge was 2.76; however on this admission was 3.39. Today higher at 4.81 - could be because of cardiorenal disease versus worsening of renal artery stenosis (Of note patient had a renal ultrasound with arterial Doppler performed November 08, 2018: It showed ultrasound evidence of severe bilateral renal artery stenoses). The patient has history of hepatitis C, could be possibility of some glomerulonephritis as well. Patient has not been on Lasix actually secondary to elevated creatinine levels. -Continue phosphate binder, monitor BUN and creatinine levels very carefully -Monitor ins and outs -Try to discuss with renal team about possible indications for Lasix at this time? -Follow-up further renal studies, and further renal recommendations 4. History of hypertension. She presented at the outside hospital with mild hypertensive urgency, but this has resolved now. -Monitor, continue hydralazine p.r.n., clonidine patch Result Diagram: 01/14/19 0610 01/14/19 0610 Results 24hrs Laboratory Tests Test 01/14/19 06:10 White Blood Count 6.5 Red Blood Count 3.70 L Hemoglobin 8.7 L Hematocrit 29.0 L Mean Corpuscular Volume 78.4 L Mean Corpuscular Hemoglobin 23.5 L Mean Corpuscular Hemoglobin Concent 30.0 L Red Cell Distribution Width 18.2 H Platelet Count 213 Mean Platelet Volume 10.5 H Immature Granulocytes % 0.600 H Neutrophils % 80.1 H Lymphocytes % 10.5 L Monocytes % 8.3 Eosinophils % 0.2 Basophils % 0.3 Nucleated Red Blood Cells % 0.0 Immature Granulocytes # 0.040 H Neutrophils # 5.2 Lymphocytes # 0.7 L Monocytes # 0.5 Eosinophils # 0.0 Basophils # 0.0 Nucleated Red Blood Cells # 0.0 Sodium Level 139 Potassium Level 4.4 Chloride Level 110 Carbon Dioxide Level 21 Anion Gap 8 Blood Urea Nitrogen 81 H Creatinine 4.81 #H Est Glomerular Filtrat Rate mL/min 11 L Glucose Level 110 Calcium Level 8.7 Exam/Review of Systems Exam Vitals Vital Signs Date Temp Pulse Resp B/P (MAP) Pulse Ox O2 O2 Flow FiO2 Time Delivery Rate 01/14/19 Nasal 2.0 09:59 Cannula 01/14/19 78 08:00 01/14/19 97.5 16 115/78 100 07:39 (90) 01/12/19 28 15:49 Intake and Output 01/13/19 01/13/19 01/14/19 1515:00 23:00 07:00 IntakeIntake Total 150 ml 200 ml 200 ml BalanceBalance 150 ml 200 ml 200 ml Results Results 24hrs Laboratory Tests Test 01/14/19 06:10 White Blood Count 6.5 Red Blood Count 3.70 L Hemoglobin 8.7 L Hematocrit 29.0 L Mean Corpuscular Volume 78.4 L Mean Corpuscular Hemoglobin 23.5 L Mean Corpuscular Hemoglobin Concent 30.0 L Red Cell Distribution Width 18.2 H Platelet Count 213 Mean Platelet Volume 10.5 H Immature Granulocytes % 0.600 H Neutrophils % 80.1 H Lymphocytes % 10.5 L Monocytes % 8.3 Eosinophils % 0.2 Basophils % 0.3 Nucleated Red Blood Cells % 0.0 Immature Granulocytes # 0.040 H Neutrophils # 5.2 Lymphocytes # 0.7 L Monocytes # 0.5 Eosinophils # 0.0 Basophils # 0.0 Nucleated Red Blood Cells # 0.0 Sodium Level 139 Potassium Level 4.4 Chloride Level 110 Carbon Dioxide Level 21 Anion Gap 8 Blood Urea Nitrogen 81 H Creatinine 4.81 #H Est Glomerular Filtrat Rate mL/min 11 L Glucose Level 110 Calcium Level 8.7 Medications Medication Current Medications IV Flush (NS 3 ml) 3 ml PER PROTOCOL IV ; Start 01/12/19 at 13:30 Ondansetron HCl (Zofran Inj) 4 mg Q6H PRN IV NAUSEA/VOMITING Last administered on 01/14/19at 09:53; Admin Dose 4 MG; Start 01/12/19 at 13:30 Acetaminophen (Tylenol Tab) 650 mg Q6H PRN PO .PAIN 1-3 OR TEMP; Start 01/12/19 at 13:30 Acetaminophen/ Hydrocodone Bitart ([place] (5/325)) 1 tab Q6H PRN PO .MOD PAIN 4- 6; Start 01/12/19 at 13:30 Morphine Sulfate (morphine) 2 mg Q4H PRN IV .SEVERE PAIN 7-10; Start 01/12/19 at 13:30 Docusate Sodium (Colace) 100 mg Q12H PRN PO .CONSTIPATION; Start 01/12/19 at 1 3:30 Magnesium Hydroxide (Milk Of Mag) 30 ml DAILY PRN PO .CONSTIPATION; Start 01/12/19 at 13:30 Pantoprazole (Protonix Tab) 40 mg DAILY@06 PO Last administered on 01/14/19at 06:05; Admin Dose 40 MG; Start 01/13/19 at 06:00 Heparin Sodium (Porcine) (Heparin (5000 Units/1ml)) 5,000 unit Q12 SC Last administered on 01/14/19at 09:07; Admin Dose 5,000 UNIT; Start 01/12/19 at 21:00 Lorazepam (Ativan) 0.5 mg Q6H PRN IV ANXIETY Last administered on 01/13/19 11:29; Admin Dose 0.5 MG; Start 01/12/19 at 13:30 Albuterol/ Ipratropium (Duoneb) 3 ml Q4H RESP THERAPY PRN HHN SHORTNESS OF BREATH Last administered on 01/12/19 15:47; Admin Dose 3 ML; Start 01/12/19 at 13:30 Levofloxacin/ Dextrose 150 ml @ 100 mls/hr Q48H IVPB Last administered on 01/13/19 09:20; Admin Dose 100 MLS/HR; Start 01/13/19 at 09:00 Hydralazine HCl (Apresoline) 10 mg Q6H PRN IV ELEVATED BLOOD PRESSURE; Start 01/12/19 at 13:30 Nitroglycerin (Nitroglycerin (Sl Tab) 0.4 Mg) 1 tab Q5M PRN SL ANGINA Last administered on 01/13/19 03:53; Admin Dose 1 TAB; Start 01/12/19 at 13:30 Carvedilol (Coreg) 25 mg BID PO Last administered on 01/14/19 09:01; Admin Dose 25 MG; Start 01/12/19 at 21:00 Clonidine HCl (Catapres-Tts 3 Patch) 0.3 patch Q7D TRANSDERM Last administered on 01/12/19 20:44; Admin Dose 0.3 PATCH; Start 01/12/19 at 18:30 Isosorbide Mononitrate (Imdur) 60 mg DAILY PO Last administered on 01/14/19 09:00; Admin Dose 60 MG; Start 01/12/19 at 18:30 Nifedipine (Procardia Xl) 60 mg DAILY PO Last administered on 01/14/19 09:00; Admin Dose 60 MG; Start 01/12/19 at 18:30 Calcium Acetate (Phoslo) 667 mg WITH MEALS PO Last administered on 01/14/19 09:00; Admin Dose 667 MG; Start 01/13/19 at 17:55 MICHAEL STARR Jan 14, 2019 11:34
--- NOTE | 2019-01-14 12:43 | CONS ---
Assessment/Plan Assessment/Plan Hospital Course (Demo Recall) 1. Questionable acute on chronic renal disease. On last admission in 10/2018, already creatinine was in 3.59 and then had peaked up to 4.2 and on discharge was 2.76; however on this admission was 3.39. It could be very well because of cardiorenal disease versus worsening of renal artery stenosis. US showed :No visualized evidence of renal artery stenosis. Mildly elevated intrarenal artery resistive indices on the right. Finding is nonspecific and could be the sequelae of medical renal disease, prior insult or chronic ischemia. Increased cortical echogenicity in both kidneys suggesting medical renal disease. Simple right renal cyst. . 2. CHF 3. Nephrotic syndrome with proteinuria. 4. Hypertension, controlled in house. NO renal artery stenosis. Pt is more likely is not compliant with medications at home, now even borderline 5. History of hepatitis C. 6. Simple right renal cyst. 7. Anemia Assessment/Plan (Daily) -decrease BP meds -anemia meds - Avoid nephrotoxic drugs -c/w phosphorus binding medication - Renal Doppler negative -. Echo 65 % function preserved. - renally dose all medications Consultation Date/Type/Reason Admit Date/Time Jan 12, 2019 at 12:23 Initial Consult Date 01/12/2019 Type of Consult nephrology Date/Time of Note DATE: 01/14/19 TIME: 12:38 24 HR Interval Summary Free Text/Dictation SOB Constitutional: requiring O2 Exam/Review of Systems Exam Vitals Vital Signs Date Temp Pulse Resp B/P (MAP) Pulse Ox O2 O2 Flow FiO2 Time Delivery Rate 01/14/19 97.9 71 16 90/63 (72) 94 11:48 01/14/19 Nasal 2.0 09:59 Cannula 01/12/19 28 15:49 Intake and Output 01/13/19 01/13/19 01/14/19 1515:00 23:00 07:00 IntakeIntake Total 150 ml 200 ml 200 ml BalanceBalance 150 ml 200 ml 200 ml Constitutional: alert, oriented Head: normocephalic Respiratory: diminished breath sounds, labored breathing Cardiovascular: regular rate and rhythm Gastrointestinal: soft Extremities: edema; No normal pulses, No calf tenderness, No cyanosis, No clubbing, No pitting pedal edema, No palpable cord, No tenderness, No other Results Result Diagram: 01/14/19 0610 2/16/19 0610 Results 24hrs Laboratory Tests Test 01/14/19 06:10 White Blood Count 6.5 Red Blood Count 3.70 L Hemoglobin 8.7 L Hematocrit 29.0 L Mean Corpuscular Volume 78.4 L Mean Corpuscular Hemoglobin 23.5 L Mean Corpuscular Hemoglobin Concent 30.0 L Red Cell Distribution Width 18.2 H Platelet Count 213 Mean Platelet Volume 10.5 H Immature Granulocytes % 0.600 H Neutrophils % 80.1 H Lymphocytes % 10.5 L Monocytes % 8.3 Eosinophils % 0.2 Basophils % 0.3 Nucleated Red Blood Cells % 0.0 Immature Granulocytes # 0.040 H Neutrophils # 5.2 Lymphocytes # 0.7 L Monocytes # 0.5 Eosinophils # 0.0 Basophils # 0.0 Nucleated Red Blood Cells # 0.0 Sodium Level 139 Potassium Level 4.4 Chloride Level 110 Carbon Dioxide Level 21 Anion Gap 8 Blood Urea Nitrogen 81 H Creatinine 4.81 #H Est Glomerular Filtrat Rate mL/min 11 L Glucose Level 110 Calcium Level 8.7 Medications Medication Current Medications IV Flush (NS 3 ml) 3 ml PER PROTOCOL IV ; Start 01/12/19 at 13:30 Ondansetron HCl (Zofran Inj) 4 mg Q6H PRN IV NAUSEA/VOMITING Last administered on 01/14/19at 09:53; Admin Dose 4 MG; Start 01/12/19 at 13:30 Acetaminophen (Tylenol Tab) 650 mg Q6H PRN PO .PAIN 1-3 OR TEMP; Start 01/12/19 at 13:30 Acetaminophen/ Hydrocodone Bitart ([place] (5/325)) 1 tab Q6H PRN PO .MOD PAIN 4- 6; Start 01/12/19 at 13:30 Morphine Sulfate (morphine) 2 mg Q4H PRN IV .SEVERE PAIN 7-10; Start 01/12/19 at 13:30 Docusate Sodium (Colace) 100 mg Q12H PRN PO .CONSTIPATION; Start 01/12/19 at 13:30 Magnesium Hydroxide (Milk Of Mag) 30 ml DAILY PRN PO .CONSTIPATION; Start 01/12/19 at 13:30 Pantoprazole (Protonix Tab) 40 mg DAILY@06 PO Last administered on 01/14/19at 06:05; Admin Dose 40 MG; Start 01/13/19 at 06:00 Heparin Sodium (Porcine) (Heparin (5000 Units/1ml)) 5,000 unit Q12 SC Last administered on 01/14/19 09:07; Admin Dose 5,000 UNIT; Start 01/12/19 at 21:00 Lorazepam (Ativan) 0.5 mg Q6H PRN IV ANXIETY Last administered on 01/13/19 11:29; Admin Dose 0.5 MG; Start 01/12/19 at 13:30 Albuterol/ Ipratropium (Duoneb) 3 ml Q4H RESP THERAPY PRN HHN SHORTNESS OF BREATH Last administered on 01/12/19 15:47; Admin Dose 3 ML; Start 01/12/19 at 13:30 Levofloxacin/ Dextrose 150 ml @ 100 mls/hr Q48H IVPB Last administered on 01/13/19 09:20; Admin Dose 100 MLS/HR; Start 01/13/19 at 09:00 Hydralazine HCl (Apresoline) 10 mg Q6H PRN IV ELEVATED BLOOD PRESSURE; Start 01/12/19 at 13:30 Nitroglycerin (Nitroglycerin (Sl Tab) 0.4 Mg) 1 tab Q5M PRN SL ANGINA Last administered on 01/13/19 03:53; Admin Dose 1 TAB; Start 01/12/19 at 13:30 Carvedilol (Coreg) 25 mg BID PO Last administered on 01/14/19 09:01; Admin Dose 25 MG; Start 01/12/19 at 21:00 Clonidine HCl (Catapres-Tts 3 Patch) 0.3 patch Q7D TRANSDERM Last administered on 01/12/19 20:44; Admin Dose 0.3 PATCH; Start 01/12/19 at 18:30 Isosorbide Mononitrate (Imdur) 60 mg DAILY PO Last administered on 01/14/19 09:00; Admin Dose 60 MG; Start 01/12/19 at 18:30 Nifedipine (Procardia Xl) 60 mg DAILY PO Last administered on 01/14/19 09:00; Admin Dose 60 MG; Start 01/12/19 at 18:30 Calcium Acetate (Phoslo) 667 mg WITH MEALS PO Last administered on 01/14/19 11:56; Admin Dose 667 MG; Start 01/13/19 at 17:55 BRET BORDEN Jan 14, 2019 12:43
[2019-01-15] MEDS: LORAZEPAM 2 MG INJ IV PRN ×2 (01:54→18:27)
[2019-01-15 02:30] VITALS: BP 112/63; PULSE 74; RESP 20
[2019-01-15] MEDS: PANTOPRAZOLE (EC) 40 MG TAB PO SCH ×2 (06:00→06:37)
[2019-01-15 08:38] VITALS: BP 96/59; PULSE 76; RESP 20
[2019-01-15] MEDS: CALCIUM ACETATE 667 MG CAP PO SCH ×3 (09:33→18:24)
[2019-01-15] MEDS: HEPARIN 5,000 UNIT/1 ML VIAL SC SCH ×2 (09:36→21:13)
[2019-01-15] MEDS: NIFEdipine (XL) 30 MG TAB PO SCH (09:37)
[2019-01-15] MEDS: ISOSORBIDE MONONITRATE(SR)60 MG TAB PO SCH (09:38)
[2019-01-15] MEDS ORDERED: SOD CHLORIDE 0.9% 1,000 ML IV SCH (11:30)
--- NOTE | 2019-01-15 11:32 | PN ---
Date/Time of Note Date/Time of Note DATE: 01/15/19 TIME: 11:28 Assessment/Plan VTE Prophylaxis Risk score (from Ns)>0 risk: 2 SCD applied (from Ns): Yes Pharmacological prophylaxis: other Lines/Catheters IV [facility]ter [facility]from [facility] Urinary Cath still in place: No Assessment/Plan Hospital Course S: Per nursing staff and per records, patient and her renal ultrasound performed this morning, results still pending. Seen by renal team yesterday. No acute events overnight otherwise per O: VS - see below PHYSICAL EXAMINATION: GENERAL: lying in bed, no acute distress. HEENT: Pupils are equal, round, reactive to light. Extraocular muscles are intact. NECK: Supple. No thyromegaly. LUNGS: Slightly distant breath sounds bilaterally. CARDIOVASCULAR: S1, S2 heard. No rubs or gallops. ABDOMEN: Soft, nontender, nondistended. Normal bowel sounds. No rebound or gu arding. MUSCULOSKELETAL: Trace pitting edema bilateral lower extremities to the mid calves. NEUROLOGIC: No focal deficits. 2D echo January 12, 2019: Conclusions: Normal left ventricular systolic function. Normal left ventricular cavity size. Severe concentric left ventricular hypertrophy. Ejection fraction is visually estimated at 65 %. Tissue Doppler/Mitral Doppler indices are consistent with impaired relaxation (Stage I diastolic dysfunction). Normal right ventricular size. Normal right ventricular systolic function. There is mild enlargement of left atrium. The right atrium is normal in size. Mild mitral valve regurgitation. No significant aortic stenosis or insufficiency. Estimated peak PA systolic pressure 31 mmHg. There is mild tricuspid regurgitation. Normal pericardium with no significant pericardial effusion. ASSESSMENT AND PLAN: 63-year-old female with prior history of chronic kidney disease, questionable chronic obstructive pulmonary disease, congestive heart failure, hypertension, bilateral renal artery stenosis, questionable hepatitis C and anemia who comes in with shortness of breath with signs of congestive heart failure exacerbation and also acute on chronic renal insufficiency. 1. Shortness of breath - slowly resolving now, smpts secondary to congestive heart failure exacerbation. -Continue to keep head of the bed greater than 30 degrees, and continue current IV Lasix frequency and dose cautiously for now. - Monitor ins and outs, daily weights follow-up recommendations from PT, OT consults. -Follow-up renal recommendations 2. Possible upper respiratory infection-on admission chest x-ray did show signs of some mild infiltrates, fluid versus otherwise. - Continue current antibiotics Levaquin for now, Tylenol p.r.n. pain and fevers. - Follow up final culture results. 3. Acute on chronic kidney disease - Per renal team, on last admission in 10/2018 already creatinine was in 3.59 and then had peaked up to 4.2 and on discharge was 2.76; however on this admission was 3.39. Today higher at 5.1, trending up the last couple of days-could be because of cardiorenal disease versus worsening of renal artery stenosis (Of note patient had a renal ultrasound with arterial Doppler performed November 08, 2018: It showed ultrasound evidence of severe bilateral renal artery stenoses). The patient has history of hepatitis C, could be possibility of some glomerulonephritis as well. Patient has not been on Lasix actually secondary to elevated creatinine levels. -Continue phosphate binder, monitor BUN and creatinine levels very carefully -Monitor ins and outs -Follow-up further renal studies including today's renal ultrasound results, and further renal recommendations 4. History of hypertension. She presented at the outside hospital with mild hypertensive urgency, but this has resolved now. -Monitor, continue hydralazine p.r.n., clonidine patch Result Diagram: 01/15/1942601/15/197 Results 24hrs Laboratory Tests Test 01/14/19 16:00 01/14/19 16:03 01/15/19 04:27 Urine Random Creatinine 133.88 Urine Random Sodium < 13 L Urine Protein/Creatinine Ratio 0.38 Urine Total Protein 52.0 H Parathyroid Hormone (Intact) White Blood Count 5.2 Red Blood Count 3.64 L Hemoglobin 8.4 L Hematocrit 28.0 L Mean Corpuscular Volume 76.9 L Mean Corpuscular Hemoglobin 23.1 L Mean Corpuscular Hemoglobin Concent 30.0 L Red Cell Distribution Width 18.1 H Platelet Count 240 Mean Platelet Volume 10.3 Immature Granulocytes % 0.600 H Neutrophils % 71.8 Lymphocytes % 18.3 Monocytes % 7.7 Eosinophils % 1.0 Basophils % 0.6 Nucleated Red Blood Cells % 0.0 Immature Granulocytes # 0.030 Neutrophils # 3.7 Lymphocytes # 1.0 Monocytes # 0.4 Eosinophils # 0.1 Basophils # 0.0 Nucleated Red Blood Cells # 0.0 Sodium Level 140 Potassium Level 4.5 Chloride Level 104 Carbon Dioxide Level 20 L Anion Gap 16 #H Blood Urea Nitrogen 81 H Creatinine 5.10 H Est Glomerular Filtrat Rate mL/min 10 L Glucose Level 98 Calcium Level 8.2 L Iron Level 23 L Total Iron Binding Capacity 313 Percent Iron Saturation 7 L Exam/Review of Systems Exam Vitals Vital Signs Date Temp Pulse Resp B/P (MAP) Pulse Ox O2 O2 Flow FiO2 Time Delivery Rate 01/15/19 98.2 76 20 96/59 (71) 97 Room Air 08:38 01/14/19 2.0 20:27 01/12/19 28 15:49 Intake and Output 01/14/19 01/14/19 01/15/19 1414:59 22:59 06:59 IntakeIntake Total 660 ml 240 ml OutputOutput Total 400 ml BalanceBalance 660 ml -160 ml Results Results 24hrs Laboratory Tests Test 01/14/19 16:00 01/14/19 16:03 01/15/19 04:27 Urine Random Creatinine 133.88 Urine Random Sodium < 13 L Urine Protein/Creatinine Ratio 0.38 Urine Total Protein 52.0 H Parathyroid Hormone (Intact) White Blood Count 5.2 Red Blood Count 3.64 L Hemoglobin 8.4 L Hematocrit 28.0 L Mean Corpuscular Volume 76.9 L Mean Corpuscular Hemoglobin 23.1 L Mean Corpuscular Hemoglobin Concent 30.0 L Red Cell Distribution Width 18.1 H Platelet Count 240 Mean Platelet Volume 10.3 Immature Granulocytes % 0.600 H Neutrophils % 71.8 Lymphocytes % 18.3 Monocytes % 7.7 Eosinophils % 1.0 Basophils % 0.6 Nucleated Red Blood Cells % 0.0 Immature Granulocytes # 0.030 Neutrophils # 3.7 Lymphocytes # 1.0 Monocytes # 0.4 Eosinophils # 0.1 Basophils # 0.0 Nucleated Red Blood Cells # 0.0 Sodium Level 140 Potassium Level 4.5 Chloride Level 104 Carbon Dioxide Level 20 L Anion Gap 16 #H Blood Urea Nitrogen 81 H Creatinine 5.10 H Est Glomerular Filtrat Rate mL/min 10 L Glucose Level 98 Calcium Level 8.2 L Iron Level 23 L Total Iron Binding Capacity 313 Percent Iron Saturation 7 L Medications Medication Current Medications IV Flush (NS 3 ml) 3 ml PER PROTOCOL IV ; Start 01/12/19 at 13:30 Ondansetron HCl (Zofran Inj) 4 mg Q6H PRN IV NAUSEA/VOMITING Last administered on 01/14/19at 19:38; Admin Dose 4 MG; Start 01/12/19 at 13:30 Acetaminophen (Tylenol Tab) 650 mg Q6H PRN PO .PAIN 1-3 OR TEMP; Start 01/12/19 at 13:30 Acetaminophen/ Hydrocodone Bitart ([place] (5/325)) 1 tab Q6H PRN PO .MOD PAIN 4- 6; Start 01/12/19 at 13:30 Morphine Sulfate (morphine) 2 mg Q4H PRN IV .SEVERE PAIN 7-10; Start 01/12/19 at 13:30 Docusate Sodium (Colace) 100 mg Q12H PRN PO .CONSTIPATION; Start 01/12/19 at 13:30 Magnesium Hydroxide (Milk Of Mag) 30 ml DAILY PRN PO .CONSTIPATION; Start 01/12/19 at 13:30 Pantoprazole (Protonix Tab) 40 mg DAILY@06 PO Last administered on 01/14/19at 06:05; Admin Dose 40 MG; Start 01/13/19 at 06:00 Heparin Sodium (Porcine) (Heparin (5000 Units/1ml)) 5,000 unit Q12 SC Last administered on 01/15/19at 09:36; Admin Dose 5,000 UNIT; Start 01/12/19 at 21:00 Lorazepam (Ativan) 0.5 mg Q6H PRN IV ANXIETY Last administered on 01/15/19 01:54; Admin Dose 0.5 MG; Start 01/12/19 at 13:30 Albuterol/ Ipratropium (Duoneb) 3 ml Q4H RESP THERAPY PRN HHN SHORTNESS OF BREATH Last administered on 01/12/19at 15:47; Admin Dose 3 ML; Start 01/12/19 at 13:30 Hydralazine HCl (Apresoline) 10 mg Q6H PRN IV ELEVATED BLOOD PRESSURE; Start 01/12/19 at 13:30 Nitroglycerin (Nitroglycerin (Sl Tab) 0.4 Mg) 1 tab Q5M PRN SL ANGINA Last administered on 01/13/19at 03:53; Admin Dose 1 TAB; Start 01/12/19 at 13:30 Carvedilol (Coreg) 25 mg BID PO Last administered on 01/15/19 09:37; Admin Dose 25 MG; Start 01/12/19 at 21:00 Clonidine HCl (Catapres-Tts 3 Patch) 0.3 patch Q7D TRANSDERM Last administered on 01/12/19at 20:44; Admin Dose 0.3 PATCH; Start 01/12/19 at 18:30 Isosorbide Mononitrate (Imdur) 60 mg DAILY PO Last administered on 01/15/19at 09:38; Admin Dose 60 MG; Start 01/12/19 at 18:30 Calcium Acetate (Phoslo) 667 mg WITH MEALS PO Last administered on 01/15/19at 09:33; Admin Dose 667 MG; Start 01/13/19 at 17:55 Nifedipine (Procardia Xl) 30 mg DAILY PO Last administered on 01/15/19at 09:37; Admin Dose 30 MG; Start 01/15/19 at 09:00 Levofloxacin/ Dextrose 100 ml @ 100 mls/hr Q48H IVPB ; Start 01/15/19 at 13:00 Ferric Sodium Gluconate Complex 125 mg/Sodium Chloride 100 ml @ 100 mls/hr DAILY@1300 IVPB ; Start 01/15/19 at 13:00; Stop 01/17/19 at 13:59; Status MICHAEL CHAUDHARY Jan 15, 2019 11:32
[2019-01-15] MEDS ORDERED: SOD CHLORIDE 0.45% 1,000 ML IV SCH (12:00)
[2019-01-15] MEDS ORDERED: LEVOFLOXACIN 500MG/D5W (PMX) 100 ML IVPB SCH (13:00)
[2019-01-15 15:09] VITALS: BP 110/67; PULSE 75; RESP 20
[2019-01-15] MEDS: SOD FERRIC GLUC COMPLX 125 MG in SOD CHLORIDE 0.9% 100 ML IVPB SCH (15:17)
--- NOTE | 2019-01-15 17:25 | CONS ---
Assessment/Plan Assessment/Plan Hospital Course (Demo Recall) HERSON ATN HTN UNDERLYING CKD HX DRUG ABUSE PLAN IV FLUID UR TOXICOLOGY LASIX PRN Consultation Date/Type/Reason Admit Date/Time Jan 12, 2019 at 12:23 Initial Consult Date Type of Consult RENAL F/U NO SOB NO CP HX DRUG ABUSE Date/Time of Note DATE: 01/15/19 TIME: 17:22 24 HR Interval Summary Constitutional: No chills, No febrile Exam/Review of Systems Exam Vitals Vital Signs Date Temp Pulse Resp B/P (MAP) Pulse Ox O2 O2 Flow FiO2 Time Delivery Rate 01/15/19 98.1 75 20 110/67 95 Room Air 15:09 (81) 01/15/19 2.0 09:00 01/12/19 28 15:49 Intake and Output 01/14/19 01/14/19 01/15/19 1515:00 23:00 07:00 IntakeIntake Total 900 ml OutputOutput Total 400 ml BalanceBalance 900 ml -400 ml Respiratory: clear to auscultation Cardiovascular: regular rate and rhythm Gastrointestinal: soft, bowel sounds (+) Extremities: No edema Results Result Diagram: 01/15/19 0427 01/15/19 0427 Results 24hrs Laboratory Tests Test 01/15/19 04:27 White Blood Count 5.2 Red Blood Count 3.64 L Hemoglobin 8.4 L Hematocrit 28.0 L Mean Corpuscular Volume 76.9 L Mean Corpuscular Hemoglobin 23.1 L Mean Corpuscular Hemoglobin Concent 30.0 L Red Cell Distribution Width 18.1 H Platelet Count 240 Mean Platelet Volume 10.3 Immature Granulocytes % 0.600 H Neutrophils % 71.8 Lymphocytes % 18.3 Monocytes % 7.7 Eosinophils % 1.0 Basophils % 0.6 Nucleated Red Blood Cells % 0.0 Immature Granulocytes # 0.030 Neutrophils # 3.7 Lymphocytes # 1.0 Monocytes # 0.4 Eosinophils # 0.1 Basophils # 0.0 Nucleated Red Blood Cells # 0.0 Sodium Level 140 Potassium Level 4.5 Chloride Level 104 Carbon Dioxide Level 20 L Anion Gap 16 #H Blood Urea Nitrogen 81 H Creatinine 5.10 H Est Glomerular Filtrat Rate mL/min 10 L Glucose Level 98 Calcium Level 8.2 L Iron Level 23 L Total Iron Binding Capacity 313 Percent Iron Saturation 7 L Medications Medication Current Medications IV Flush (NS 3 ml) 3 ml PER PROTOCOL IV ; Start 01/12/19 at 13:30 Ondansetron HCl (Zofran Inj) 4 mg Q6H PRN IV NAUSEA/VOMITING Last administered on 01/14/19at 19:38; Admin Dose 4 MG; Start 01/12/19 at 13:30 Acetaminophen (Tylenol Tab) 650 mg Q6H PRN PO .PAIN 1-3 OR TEMP; Start 01/12/19 at 13:30 Acetaminophen/ Hydrocodone Bitart ([place] (5/325)) 1 tab Q6H PRN PO .MOD PAIN 4- 6; Start 01/12/19 at 13:30 Morphine Sulfate (morphine) 2 mg Q4H PRN IV .SEVERE PAIN 7-10; Start 01/12/19 at 13:30 Docusate Sodium (Colace) 100 mg Q12H PRN PO .CONSTIPATION; Start 01/12/19 at 13:30 Magnesium Hydroxide (Milk Of Mag) 30 ml DAILY PRN PO .CONSTIPATION; Start 01/12/19 at 13:30 Pantoprazole (Protonix Tab) 40 mg DAILY@06 PO Last administered on 01/14/19at 06:05; Admin Dose 40 MG; Start 01/13/19 at 06:00 Heparin Sodium (Porcine) (Heparin (5000 Units/1ml)) 5,000 unit Q12 SC Last administered on 01/15/19 09:36; Admin Dose 5,000 UNIT; Start 01/12/19 at 21:00 Lorazepam (Ativan) 0.5 mg Q6H PRN IV ANXIETY Last administered on 01/15/19 01:54; Admin Dose 0.5 MG; Start 01/12/19 at 13:30 Albuterol/ Ipratropium (Duoneb) 3 ml Q4H RESP THERAPY PRN HHN SHORTNESS OF BREATH Last administered on 01/12/19at 15:47; Admin Dose 3 ML; Start 01/12/19 at 13:30 Hydralazine HCl (Apresoline) 10 mg Q6H PRN IV ELEVATED BLOOD PRESSURE; Start 01/12/19 at 13:30 Nitroglycerin (Nitroglycerin (Sl Tab) 0.4 Mg) 1 tab Q5M PRN SL ANGINA Last administered on 01/13/19at 03:53; Admin Dose 1 TAB; Start 01/12/19 at 13:30 Carvedilol (Coreg) 25 mg BID PO Last administered on 01/15/19 09:37; Admin Dose 25 MG; Start 01/12/19 at 21:00 Clonidine HCl (Catapres-Tts 3 Patch) 0.3 patch Q7D TRANSDERM Last administered on 01/12/19 20:44; Admin Dose 0.3 PATCH; Start 01/12/19 at 18:30 Isosorbide Mononitrate (Imdur) 60 mg DAILY PO Last administered on 01/15/19 09:38; Admin Dose 60 MG; Start 01/12/19 at 18:30 Calcium Acetate (Phoslo) 667 mg WITH MEALS PO Last administered on 01/15/19 13:07; Admin Dose 667 MG; Start 01/13/19 at 17:55 Nifedipine (Procardia Xl) 30 mg DAILY PO Last administered on 01/15/19 09:37; Admin Dose 30 MG; Start 01/15/19 at 09:00 Levofloxacin/ Dextrose 100 ml @ 100 mls/hr Q48H IVPB Last administered on 01/15/19 13:57; Admin Dose 100 MLS/HR; Start 01/15/19 at 13:00 Ferric Sodium Gluconate Complex 125 mg/Sodium Chloride 100 ml @ 100 mls/hr DAILY@1300 IVPB Last administered on 01/15/19at 15:17; Admin Dose 100 MLS/HR; Start 01/15/19 at 13:00; Stop 01/17/19 at 13:59 Sodium Chloride 1,000 ml @ 50 mls/hr Q20H IV Last administered on 01/15/19at 12:32; Admin Dose 75 MLS/HR; Start 01/15/19 at 12:00; Stop 01/15/19 at 23:30 KINZA MONTENEGRO MD Jan 15, 2019 17:25
[2019-01-15 20:40] VITALS: BP 112/74; PULSE 64; RESP 17
[2019-01-16] MEDS: LORAZEPAM 2 MG INJ IV PRN ×2 (02:16→22:58)
[2019-01-16 02:34] VITALS: BP 115/66; PULSE 60; RESP 19
[2019-01-16] MEDS: PANTOPRAZOLE (EC) 40 MG TAB PO SCH (05:34)
[2019-01-16 07:23] VITALS: BP 110/79; PULSE 68; RESP 18
[2019-01-16] MEDS: ISOSORBIDE MONONITRATE(SR)60 MG TAB PO SCH (09:04)
[2019-01-16] MEDS: NIFEdipine (XL) 30 MG TAB PO SCH (09:05)
[2019-01-16] MEDS: CALCIUM ACETATE 667 MG CAP PO SCH ×4 (09:07→18:55)
[2019-01-16] MEDS: HEPARIN 5,000 UNIT/1 ML VIAL SC SCH ×2 (09:12→21:15)
[2019-01-16] MEDS: ONDANSETRON 4 MG INJ IV PRN (09:31)
--- NOTE | 2019-01-16 10:21 | CONS ---
Assessment/Plan Assessment/Plan Assessment/Plan (Daily) 63 y/o with 1. acute on chronic renal disease. On last admission in 10/2018, already creatinine was in 3.59 and then had peaked up to 4.2 and on discharge was 2.76; however on this admission was 3.39. It could be very well because of cardiorenal disease on CKD vs ATN The patient has history of hepatitis C, could be possibility of some glomerulonephritis as well. Pt has been non compliant with meds Cr comtinue to uptrend mesfinley ATN, Renal doppler was neg for KAYLA Pt had BP DROPS from 180>90s UA neg for any active sediment Neg for Rhabdomyolysis 3. History of proteinuria. 4. Hypertension, controlled 5. History of hepatitis C. 6 Fe def anemia Plan - Repeat Chest Ray - Reassess UA - No emergent indications of HD , monitor Cr and I/Os, pt is also stating that she would refuse HD - hold lasix -hold levaquin - renally dose all meds - avoid nephrotoxins Consultation Date/Type/Reason Admit Date/Time Jan 12, 2019 at 12:23 Initial Consult Date Date/Time of Note DATE: 01/16/19 TIME: 10:19 24 HR Interval Summary Free Text/Dictation Had some nausea and episode of vomitting feels weak Refused HD Received iv fluids yesterday Exam/Review of Systems Exam Vitals Vital Signs Date Temp Pulse Resp B/P (MAP) Pulse Ox O2 O2 Flow FiO2 Time Delivery Rate 01/16/19 Nasal 2.0 08:54 Cannula 01/16/19 98.2 68 18 110/79 96 07:23 (89) 01/12/19 28 15:49 Intake and Output 01/15/19 01/15/19 01/16/19 1515:00 23:00 07:00 IntakeIntake Total 820 ml 1200 ml 600 ml OutputOutput Total 400 ml 350 ml 400 ml BalanceBalance 420 ml 850 ml 200 ml Exam Respiratory: clear to auscultation Cardiovascular: regular rate and rhythm Gastrointestinal: soft, bowel sounds (+) Extremities: No edema Results Result Diagram: 01/16/197 01/16/19426 Results 24hrs Laboratory Tests Test 01/15/19 17:56 01/15/19 22:50 01/16/19 04:27 Creatine Kinase 37 Creatine Kinase Index 2.9 Creatinine Kinase MB (Mass) 1.06 Troponin I 0.060 Urine Opiates Screen Negative Urine Barbiturates Negative Urine Amphetamines Screen Negative Urine Benzodiazepines Screen Negative Urine Cocaine Screen Positive Urine Cannabinoids Negative White Blood Count 5.0 Red Blood Count 3.61 L Hemoglobin 8.5 L Hematocrit 28.4 L Mean Corpuscular Volume 78.7 L Mean Corpuscular Hemoglobin 23.5 L Mean Corpuscular Hemoglobin Concent 29.9 L Red Cell Distribution Width 18.3 H Platelet Count 168 # Mean Platelet Volume 10.1 Immature Granulocytes % 0.400 Neutrophils % 71.6 Lymphocytes % 15.7 Monocytes % 10.5 Eosinophils % 1.2 Basophils % 0.6 Nucleated Red Blood Cells % 0.0 Immature Granulocytes # 0.020 Neutrophils # 3.6 Lymphocytes # 0.8 Monocytes # 0.5 Eosinophils # 0.1 Basophils # 0.0 Nucleated Red Blood Cells # 0.0 Sodium Level 138 Potassium Level 4.3 Chloride Level 109 Carbon Dioxide Level 22 Anion Gap 7 # Blood Urea Nitrogen 84 H Creatinine 5.28 H Est Glomerular Filtrat Rate mL/min 10 L Glucose Level 95 Calcium Level 8.1 L Medications Medication Current Medications IV Flush (NS 3 ml) 3 ml PER PROTOCOL IV ; Start 01/12/19 at 13:30 Ondansetron HCl (Zofran Inj) 4 mg Q6H PRN IV NAUSEA/VOMITING Last administered on 01/16/19at 09:31; Admin Dose 4 MG; Start 01/12/19 at 13:30 Acetaminophen (Tylenol Tab) 650 mg Q6H PRN PO .PAIN 1-3 OR TEMP; Start 01/12/19 at 13:30 Acetaminophen/ Hydrocodone Bitart ([place] (5/325)) 1 tab Q6H PRN PO .MOD PAIN 4- 6; Start 01/12/19 at 13:30 Morphine Sulfate (morphine) 2 mg Q4H PRN IV .SEVERE PAIN 7-10; Start 01/12/19 at 13:30 Docusate Sodium (Colace) 100 mg Q12H PRN PO .CONSTIPATION; Start 01/12/19 at 13:30 Magnesium Hydroxide (Milk Of Mag) 30 ml DAILY PRN PO .CONSTIPATION; Start 01/12/19 at 13:30 Pantoprazole (Protonix Tab) 40 mg DAILY@06 PO Last administered on 2/18/19at 05:34; Admin Dose 40 MG; Start 01/13/19 at 06:00 Heparin Sodium (Porcine) (Heparin (5000 Units/1ml)) 5,000 unit Q12 SC Last administered on 01/16/19 09:12; Admin Dose 5,000 UNIT; Start 01/12/19 at 21:00 Lorazepam (Ativan) 0.5 mg Q6H PRN IV ANXIETY Last administered on 01/16/19 02:16; Admin Dose 0.5 MG; Start 01/12/19 at 13:30 Albuterol/ Ipratropium (Duoneb) 3 ml Q4H RESP THERAPY PRN HHN SHORTNESS OF BREATH Last administered on 01/12/19 15:47; Admin Dose 3 ML; Start 01/12/19 at 13:30 Hydralazine HCl (Apresoline) 10 mg Q6H PRN IV ELEVATED BLOOD PRESSURE; Start 01/12/19 at 13:30 Nitroglycerin (Nitroglycerin (Sl Tab) 0.4 Mg) 1 tab Q5M PRN SL ANGINA Last administered on 01/13/19 03:53; Admin Dose 1 TAB; Start 01/12/19 at 13:30 Carvedilol (Coreg) 25 mg BID PO Last administered on 01/16/19 09:05; Admin Dose 25 MG; Start 01/12/19 at 21:00 Clonidine HCl (Catapres-Tts 3 Patch) 0.3 patch Q7D TRANSDERM Last administered on 01/12/19 20:44; Admin Dose 0.3 PATCH; Start 01/12/19 at 18:30 Isosorbide Mononitrate (Imdur) 60 mg DAILY PO Last administered on 01/16/19 09:04; Admin Dose 60 MG; Start 01/12/19 at 18:30 Calcium Acetate (Phoslo) 667 mg WITH MEALS PO Last administered on 01/16/19 09:31; Admin Dose 667 MG; Start 01/13/19 at 17:55 Nifedipine (Procardia Xl) 30 mg DAILY PO Last administered on 01/16/19 09:05; Admin Dose 30 MG; Start 01/15/19 at 09:00 Levofloxacin/ Dextrose 100 ml @ 100 mls/hr Q48H IVPB Last administered on 2/17/19at 13:57; Admin Dose 100 MLS/HR; Start 01/15/19 at 13:00 Ferric Sodium Gluconate Complex 125 mg/Sodium Chloride 100 ml @ 100 mls/hr DAILY@1300 IVPB Last administered on 01/15/19at 15:17; Admin Dose 100 MLS/HR; Start 01/15/19 at 13:00; Stop 01/17/19 at 13:59 JESSICA NOLAN MD Jan 16, 2019 10:21
[2019-01-16] MEDS: SOD FERRIC GLUC COMPLX 125 MG in SOD CHLORIDE 0.9% 100 ML IVPB SCH (13:28)
--- NOTE | 2019-01-16 13:34 | PN ---
Date/Time of Note Date/Time of Note DATE: 01/16/19 TIME: 13:32 Assessment/Plan VTE Prophylaxis Risk score (from Ns)>0 risk: 3 SCD applied (from Ns): Yes Pharmacological prophylaxis: heparin Lines/Catheters IV Catheter Type (from [facility]): Peripheral IV Urinary Cath still in place: Yes Reason Cath still needed: urinary retention Assessment/Plan Hospital Course ASSESSMENT AND PLAN: 63-year-old female with prior history of chronic kidney disease, questionable chronic obstructive pulmonary disease, congestive heart failure, hypertension, bilateral renal artery stenosis, questionable hepatitis C and anemia who comes in with shortness of breath with signs of congestive heart failure exacerbation and also acute on chronic renal insufficiency. 1. Shortness of breath - slowly resolving now, smpts secondary to congestive heart failure exacerbation. -Continue to keep head of the bed greater than 30 degrees, and continue current IV Lasix frequency and dose cautiously for now. - Monitor ins and outs, daily weights follow-up recommendations from PT, OT consults. -Follow-up renal recommendations 2. Possible upper respiratory infection-on admission chest x-ray did show signs of some mild infiltrates, fluid versus otherwise. - Continue current antibiotics Levaquin for now, Tylenol p.r.n. pain and fevers. - Follow up final culture results. 3. Acute on chronic kidney disease - Per renal team, on last admission in 10/2018 already creatinine was in 3.59 and then had peaked up to 4.2 and on discharge was 2.76; however on this admission was 3.39. Today higher at 5.1, trending up the last couple of days-could be because of cardiorenal disease versus worsening of renal artery stenosis (Of note patient had a renal ultrasound with arterial Doppler performed November 08, 2018: It showed ultrasound evidence of severe bilateral renal artery stenoses). The patient has history of hepatitis C, could be possibility of some glomerulonephritis as well. Patient has not been on Lasix actually secondary to elevated creatinine levels. -Continue phosphate binder, monitor BUN and creatinine levels very carefully -Monitor ins and outs -Follow-up further renal studies including today's renal ultrasound results, and further renal recommendations 4. History of hypertension. She presented at the outside hospital with mild hypertensive urgency, but this has resolved now. -Monitor, continue hydralazine p.r.n., clonidine patch Result Diagram: 01/16/1942601/16/19426 Results 24hrs Laboratory Tests Test 01/15/19 17:56 01/15/19 22:50 01/16/19 04:27 Creatine Kinase 37 Creatine Kinase Index 2.9 Creatinine Kinase MB (Mass) 1.06 Troponin I 0.060 Urine Opiates Screen Negative Urine Barbiturates Negative Urine Amphetamines Screen Negative Urine Benzodiazepines Screen Negative Urine Cocaine Screen Positive Urine Cannabinoids Negative White Blood Count 5.0 Red Blood Count 3.61 L Hemoglobin 8.5 L Hematocrit 28.4 L Mean Corpuscular Volume 78.7 L Mean Corpuscular Hemoglobin 23.5 L Mean Corpuscular Hemoglobin Concent 29.9 L Red Cell Distribution Width 18.3 H Platelet Count 168 # Mean Platelet Volume 10.1 Immature Granulocytes % 0.400 Neutrophils % 71.6 Lymphocytes % 15.7 Monocytes % 10.5 Eosinophils % 1.2 Basophils % 0.6 Nucleated Red Blood Cells % 0.0 Immature Granulocytes # 0.020 Neutrophils # 3.6 Lymphocytes # 0.8 Monocytes # 0.5 Eosinophils # 0.1 Basophils # 0.0 Nucleated Red Blood Cells # 0.0 Sodium Level 138 Potassium Level 4.3 Chloride Level 109 Carbon Dioxide Level 22 Anion Gap 7 # Blood Urea Nitrogen 84 H Creatinine 5.28 H Est Glomerular Filtrat Rate mL/min 10 L Glucose Level 95 Calcium Level 8.1 L Subjective 24 Hr Interval Summary Free Text/Dictation Breathing comfortably Creatinine uptrending Exam/Review of Systems Exam Vitals Vital Signs Date Temp Pulse Resp B/P (MAP) Pulse Ox O2 O2 Flow FiO2 Time Delivery Rate 01/16/19 Nasal 2.0 08:54 Cannula 01/16/19 98.2 68 18 110/79 96 07:23 (89) 01/12/19 28 15:49 Intake and Output 01/15/19 01/15/19 01/16/19 1515:00 23:00 07:00 IntakeIntake Total 820 ml 1200 ml 600 ml OutputOutput Total 400 ml 350 ml 400 ml BalanceBalance 420 ml 850 ml 200 ml Exam Resting comfortably + JVD Breathing comfortably RRR Extremiites wihtout edema Results Results 24hrs Laboratory Tests Test 01/15/19 17:56 01/15/19 22:50 01/16/19 04:27 Creatine Kinase 37 Creatine Kinase Index 2.9 Creatinine Kinase MB (Mass) 1.06 Troponin I 0.060 Urine Opiates Screen Negative Urine Barbiturates Negative Urine Amphetamines Screen Negative Urine Benzodiazepines Screen Negative Urine Cocaine Screen Positive Urine Cannabinoids Negative White Blood Count 5.0 Red Blood Count 3.61 L Hemoglobin 8.5 L Hematocrit 28.4 L Mean Corpuscular Volume 78.7 L Mean Corpuscular Hemoglobin 23.5 L Mean Corpuscular Hemoglobin Concent 29.9 L Red Cell Distribution Width 18.3 H Platelet Count 168 # Mean Platelet Volume 10.1 Immature Granulocytes % 0.400 Neutrophils % 71.6 Lymphocytes % 15.7 Monocytes % 10.5 Eosinophils % 1.2 Basophils % 0.6 Nucleated Red Blood Cells % 0.0 Immature Granulocytes # 0.020 Neutrophils # 3.6 Lymphocytes # 0.8 Monocytes # 0.5 Eosinophils # 0.1 Basophils # 0.0 Nucleated Red Blood Cells # 0.0 Sodium Level 138 Potassium Level 4.3 Chloride Level 109 Carbon Dioxide Level 22 Anion Gap 7 # Blood Urea Nitrogen 84 H Creatinine 5.28 H Est Glomerular Filtrat Rate mL/min 10 L Glucose Level 95 Calcium Level 8.1 L Medications Medication Current Medications IV Flush (NS 3 ml) 3 ml PER PROTOCOL IV ; Start 01/12/19 at 13:30 Ondansetron HCl (Zofran Inj) 4 mg Q6H PRN IV NAUSEA/VOMITING Last administered on 01/16/19at 09:31; Admin Dose 4 MG; Start 01/12/19 at 13:30 Acetaminophen (Tylenol Tab) 650 mg Q6H PRN PO .PAIN 1-3 OR TEMP; Start 01/12/19 at 13:30 Acetaminophen/ Hydrocodone Bitart ([place] (5/325)) 1 tab Q6H PRN PO .MOD PAIN 4- 6; Start 01/12/19 at 13:30 Morphine Sulfate (morphine) 2 mg Q4H PRN IV .SEVERE PAIN 7-10; Start 01/12/19 at 13:30 Docusate Sodium (Colace) 100 mg Q12H PRN PO .CONSTIPATION; Start 01/12/19 at 13:30 Magnesium Hydroxide (Milk Of Mag) 30 ml DAILY PRN PO .CONSTIPATION; Start 01/12/19 at 13:30 Pantoprazole (Protonix Tab) 40 mg DAILY@06 PO Last administered on 01/16/19at 05:34; Admin Dose 40 MG; Start 01/13/19 at 06:00 Heparin Sodium (Porcine) (Heparin (5000 Units/1ml)) 5,000 unit Q12 SC Last administered on 01/16/19 09:12; Admin Dose 5,000 UNIT; Start 01/12/19 at 21:00 Lorazepam (Ativan) 0.5 mg Q6H PRN IV ANXIETY Last administered on 01/16/19 02:16; Admin Dose 0.5 MG; Start 01/12/19 at 13:30 Albuterol/ Ipratropium (Duoneb) 3 ml Q4H RESP THERAPY PRN HHN SHORTNESS OF BREATH Last administered on 01/12/19 15:47; Admin Dose 3 ML; Start 01/12/19 at 13:30 Hydralazine HCl (Apresoline) 10 mg Q6H PRN IV ELEVATED BLOOD PRESSURE; Start 01/12/19 at 13:30 Nitroglycerin (Nitroglycerin (Sl Tab) 0.4 Mg) 1 tab Q5M PRN SL ANGINA Last administered on 01/13/19 03:53; Admin Dose 1 TAB; Start 01/12/19 at 13:30 Carvedilol (Coreg) 25 mg BID PO Last administered on 01/16/19 09:05; Admin Dose 25 MG; Start 01/12/19 at 21:00 Clonidine HCl (Catapres-Tts 3 Patch) 0.3 patch Q7D TRANSDERM Last administered on 01/12/19 20:44; Admin Dose 0.3 PATCH; Start 01/12/19 at 18:30 Isosorbide Mononitrate (Imdur) 60 mg DAILY PO Last administered on 01/16/19 09:04; Admin Dose 60 MG; Start 01/12/19 at 18:30 Calcium Acetate (Phoslo) 667 mg WITH MEALS PO Last administered on 01/16/19 13:22; Admin Dose 667 MG; Start 01/13/19 at 17:55 Nifedipine (Procardia Xl) 30 mg DAILY PO Last administered on 01/16/19 09:05; Admin Dose 30 MG; Start 01/15/19 at 09:00 Levofloxacin/ Dextrose 100 ml @ 100 mls/hr Q48H IVPB Last administered on 01/15/19 13:57; Admin Dose 100 MLS/HR; Start 01/15/19 at 13:00 Ferric Sodium Gluconate Complex 125 mg/Sodium Chloride 100 ml @ 100 mls/hr DAILY@1300 IVPB Last administered on 01/16/19at 13:28; Admin Dose 100 MLS/HR; Start 01/15/19 at 13:00; Stop 01/17/19 at 13:59 KATHY ZARAGOZA MD Jan 16, 2019 13:34
[2019-01-16 15:47] VITALS: BP 103/61; PULSE 67; RESP 19
[2019-01-16 19:39] VITALS: BP 121/73; PULSE 68; RESP 18
[2019-01-17 01:28] VITALS: BP 113/70; PULSE 70; RESP 16
[2019-01-17] MEDS: LORAZEPAM 2 MG INJ IV PRN (05:28)
[2019-01-17 05:32] VITALS: BP 132/91; PULSE 64; RESP 20
[2019-01-17 08:05] VITALS: BP 133/82; PULSE 67; RESP 18
[2019-01-17] MEDS: HEPARIN 5,000 UNIT/1 ML VIAL SC SCH ×2 (09:32→20:43)
[2019-01-17 09:42] VITALS: BP 147/99; PULSE 68; RESP 18
[2019-01-17] MEDS: NIFEdipine (XL) 30 MG TAB PO SCH (09:45)
[2019-01-17] MEDS: ISOSORBIDE MONONITRATE(SR)60 MG TAB PO SCH (09:45)
[2019-01-17] MEDS: CALCIUM ACETATE 667 MG CAP PO SCH ×3 (09:45→18:38)
--- NOTE | 2019-01-17 10:30 | PN ---
Date/Time of Note Date/Time of Note DATE: 01/17/19 TIME: 10:24 Assessment/Plan VTE Prophylaxis Risk score (from Ns)>0 risk: 4 SCD applied (from Ns): Yes Pharmacological prophylaxis: NA/contraindicated Pharm contraindication: low risk/ambulating Lines/Catheters IV [facility] (from [facility]): Peripheral IV Urinary Cath still in place: Yes Reason Cath still needed: other (indicate) (urine output monitor) Assessment/Plan Assessment/Plan 63-year-old homeless woman with prior history of chronic kidney disease, questionable chronic obstructive pulmonary disease, congestive heart failure, hypertension, bilateral renal artery stenosis, questionable hepatitis C and anemia who comes in with shortness of breath with signs of congestive heart failure exacerbation and also acute on chronic renal insufficiency. # Pulmonary edema # Pleural effusion # Shortness of breath - Had pleural effusion with thoracentesis in 10/2018. Was transudative by protein, no serum LDH to compare it to. Culture and pathology negative. Now CXR shows loculation of that effusion.Will not pursue repeat thora. - CXR shows possible "diffuse infiltrates". But no fever, WBC to suggest infection. Will hold off on antibiotics. -Continue to keep head of the bed greater than 30 degrees, and continue current IV Lasix frequency and dose cautiously for now. - Monitor ins and outs, daily weights follow-up recommendations from PT, OT consults. -Follow-up renal recommendations # Acute on chronic kidney disease - Per renal team, on last admission in 10/2018 already creatinine was in 3.59 and then had peaked up to 4.2 and on discharge was 2.76; however on this admission was 3.39. After diuresis higher at 5.1, trending up the last couple of days-could be because of cardiorenal disease versus worsening of renal artery stenosis (Of note patient had a renal ultrasound with arterial Doppler performed November 08, 2018: It showed ultrasound evidence of severe bilateral renal artery stenoses but repeat shows no stenosis). The patient has history of hepatitis C, could be possibility of some glomerulonephritis as well. Patient has not been on Lasix actually secondary to elevated creatinine levels. -Continue phosphate binder, monitor BUN and creatinine levels very carefully -Monitor ins and outs -Follow-up renal recommendations # History of hypertension. She presented at the outside hospital with mild hypertensive urgency, but this has resolved now. -Monitor, continue hydralazine p.r.n., clonidine patch #Homelessness - Social work consult Result Diagram: 01/17/199 01/17/19 045 Results 24hrs Laboratory Tests Test 01/17/19 04:59 White Blood Count 5.2 Red Blood Count 3.67 L Hemoglobin 8.8 L Hematocrit 29.2 L Mean Corpuscular Volume 79.6 L Mean Corpuscular Hemoglobin 24.0 L Mean Corpuscular Hemoglobin Concent 30.1 L Red Cell Distribution Width 18.5 H Platelet Count 218 # Mean Platelet Volume 10.2 Immature Granulocytes % 0.600 H Neutrophils % 73.5 Lymphocytes % 13.2 L Monocytes % 10.6 Eosinophils % 1.5 Basophils % 0.6 Nucleated Red Blood Cells % 0.0 Immature Granulocytes # 0.030 Neutrophils # 3.8 Lymphocytes # 0.7 L Monocytes # 0.6 Eosinophils # 0.1 Basophils # 0.0 Nucleated Red Blood Cells # 0.0 Sodium Level 140 Potassium Level 4.3 Chloride Level 106 Carbon Dioxide Level 22 Anion Gap 12 Blood Urea Nitrogen 74 H Creatinine 4.92 H Est Glomerular Filtrat Rate mL/min 11 L Glucose Level 99 Calcium Level 8.4 Subjective 24 Hr Interval Summary Free Text/Dictation She got two doses of IV Ativan overnight. This morning very drowsy. Desaturating on nasal cannula. Poor appetite. Exam/Review of Systems Exam Vitals Vital Signs Date Temp Pulse Resp B/P (MAP) Pulse Ox O2 O2 Flow FiO2 Time Delivery Rate 01/17/19 68 18 147/99 97 Nasal 09:42 (115) Cannula 01/17/19 98.3 08:05 01/17/19 2.0 05:32 Intake and Output 01/16/19 01/16/19 01/17/19 1515:00 23:00 07:00 IntakeIntake Total 336 ml 720 ml OutputOutput Total 320 ml 600 ml 400 ml BalanceBalance 16 ml 120 ml -400 ml Exam GENERAL: lying in bed, no acute distress, somnolent but arousable. HEENT: Pupils are equal, round, reactive to light. Extraocular muscles are intact. NECK: Supple. No thyromegaly. LUNGS: Clear breath sounds bilaterally no crackles or rales. CARDIOVASCULAR: S1, S2 heard. No rubs or gallops. ABDOMEN: Soft, nontender, nondistended. Normal bowel sounds. No rebound or guarding. MUSCULOSKELETAL: No LE edema. Results Results 24hrs Laboratory Tests Test 01/17/19 04:59 White Blood Count 5.2 Red Blood Count 3.67 L Hemoglobin 8.8 L Hematocrit 29.2 L Mean Corpuscular Volume 79.6 L Mean Corpuscular Hemoglobin 24.0 L Mean Corpuscular Hemoglobin Concent 30.1 L Red Cell Distribution Width 18.5 H Platelet Count 218 # Mean Platelet Volume 10.2 Immature Granulocytes % 0.600 H Neutrophils % 73.5 Lymphocytes % 13.2 L Monocytes % 10.6 Eosinophils % 1.5 Basophils % 0.6 Nucleated Red Blood Cells % 0.0 Immature Granulocytes # 0.030 Neutrophils # 3.8 Lymphocytes # 0.7 L Monocytes # 0.6 Eosinophils # 0.1 Basophils # 0.0 Nucleated Red Blood Cells # 0.0 Sodium Level 140 Potassium Level 4.3 Chloride Level 106 Carbon Dioxide Level 22 Anion Gap 12 Blood Urea Nitrogen 74 H Creatinine 4.92 H Est Glomerular Filtrat Rate mL/min 11 L Glucose Level 99 Calcium Level 8.4 Medications Medication Current Medications IV Flush (NS 3 ml) 3 ml PER PROTOCOL IV ; Start 01/12/19 at 13:30 Ondansetron HCl (Zofran Inj) 4 mg Q6H PRN IV NAUSEA/VOMITING Last administered on 01/16/19at 09:31; Admin Dose 4 MG; Start 01/12/19 at 13:30 Acetaminophen (Tylenol Tab) 650 mg Q6H PRN PO .PAIN 1-3 OR TEMP; Start 01/12/19 at 13:30 Acetaminophen/ Hydrocodone Bitart ([place] (5/325)) 1 tab Q6H PRN PO .MOD PAIN 4- 6; Start 01/12/19 at 13:30 Morphine Sulfate (morphine) 2 mg Q4H PRN IV .SEVERE PAIN 7-10 Last administered on 01/17/19at 06:14; Admin Dose 2 MG; Start 01/12/19 at 13:30 Docusate Sodium (Colace) 100 mg Q12H PRN PO .CONSTIPATION; Start 01/12/19 at 13:30 Magnesium Hydroxide (Milk Of Mag) 30 ml DAILY PRN PO .CONSTIPATION; Start 01/12/19 at 13:30 Heparin Sodium (Porcine) (Heparin (5000 Units/1ml)) 5,000 unit Q12 SC Last administered on 01/17/19 09:32; Admin Dose 5,000 UNIT; Start 01/12/19 at 21:00 Lorazepam (Ativan) 0.5 mg Q6H PRN IV ANXIETY Last administered on 01/17/19 05:28; Admin Dose 0.5 MG; Start 01/12/19 at 13:30 Albuterol/ Ipratropium (Duoneb) 3 ml Q4H RESP THERAPY PRN HHN SHORTNESS OF BREATH Last administered on 01/12/19 15:47; Admin Dose 3 ML; Start 01/12/19 at 13:30 Hydralazine HCl (Apresoline) 10 mg Q6H PRN IV ELEVATED BLOOD PRESSURE; Start 01/12/19 at 13:30 Nitroglycerin (Nitroglycerin (Sl Tab) 0.4 Mg) 1 tab Q5M PRN SL ANGINA Last administered on 01/13/19 03:53; Admin Dose 1 TAB; Start 01/12/19 at 13:30 Carvedilol (Coreg) 25 mg BID PO Last administered on 01/17/19 09:45; Admin Dose 25 MG; Start 01/12/19 at 21:00 Clonidine HCl (Catapres-Tts 3 Patch) 0.3 patch Q7D TRANSDERM Last administered on 01/12/19 20:44; Admin Dose 0.3 PATCH; Start 01/12/19 at 18:30 Isosorbide Mononitrate (Imdur) 60 mg DAILY PO Last administered on 01/17/19 0 9:45; Admin Dose 60 MG; Start 01/12/19 at 18:30 Calcium Acetate (Phoslo) 667 mg WITH MEALS PO Last administered on 01/17/19 09:45; Admin Dose 667 MG; Start 01/13/19 at 17:55 Nifedipine (Procardia Xl) 30 mg DAILY PO Last administered on 01/17/19 09:45; Admin Dose 30 MG; Start 01/15/19 at 09:00 Ferric Sodium Gluconate Complex 125 mg/Sodium Chloride 100 ml @ 100 mls/hr DAILY@1300 IVPB Last administered on 01/16/19 13:28; Admin Dose 100 MLS/HR; Start 01/15/19 at 13:00; Stop 2/19/19 at 13:59 SEBASTIAN GRAHAM MD Jan 17, 2019 10:30
--- NOTE | 2019-01-17 12:14 | PN ---
Date/Time of Note Date/Time of Note DATE: 01/17/19 TIME: 12:02 Assessment/Plan VTE Prophylaxis Risk score (from Ns)>0 risk: 4 SCD applied (from Ns): Yes Pharmacological prophylaxis: NA/contraindicated Pharm contraindication: low risk/ambulating Lines/Catheters [facility] (from [facility] Peripheral IV Urinary Cath still in place: Yes Reason Cath still needed: urinary retention Assessment/Plan Hospital Course 1. acute on chronic renal disease. On last admission in 10/2018, already creatinine was in 3.59 and then had peaked up to 4.2 and on discharge was 2.76; however on this admission was 3.39. It could be very well because of c ardiorenal disease on CKD vs ATN The patient has history of hepatitis C, could be possibility of some glomerulonephritis as well.however UA no active sediment Pt has been non compliant with meds Cr comtinue to uptrend [facility] ATN, Renal doppler was neg for KAYLA Pt had BP DROPS from 180>90s first UA neg for any active sediment Neg for Rhabdomyolysis Cr down trending 3. History of proteinuria. 4. Hypertension, controlled 5. History of hepatitis C. 6 Fe def anemia Plan - Repeat Chest Ray with worse rt loculated effusion consider CT chest/pul consult ? transudative - Monitor Cr - Would keep him even - No emergent indications of HD , monitor Cr and I/Os, pt is also stating that she would refuse HD - hold lasix -hold levaquin - renally dose all meds - avoid nephrotoxins Result Diagram: 01/17/19 0459 01/17/19 0459 Results 24hrs Laboratory Tests Test 01/17/19 04:59 01/17/19 09:40 White Blood Count 5.2 Red Blood Count 3.67 L Hemoglobin 8.8 L Hematocrit 29.2 L Mean Corpuscular Volume 79.6 L Mean Corpuscular Hemoglobin 24.0 L Mean Corpuscular Hemoglobin Concent 30.1 L Red Cell Distribution Width 18.5 H Platelet Count 218 # Mean Platelet Volume 10.2 Immature Granulocytes % 0.600 H Neutrophils % 73.5 Lymphocytes % 13.2 L Monocytes % 10.6 Eosinophils % 1.5 Basophils % 0.6 Nucleated Red Blood Cells % 0.0 Immature Granulocytes # 0.030 Neutrophils # 3.8 Lymphocytes # 0.7 L Monocytes # 0.6 Eosinophils # 0.1 Basophils # 0.0 Nucleated Red Blood Cells # 0.0 Sodium Level 140 Potassium Level 4.3 Chloride Level 106 Carbon Dioxide Level 22 Anion Gap 12 Blood Urea Nitrogen 74 H Creatinine 4.92 H Est Glomerular Filtrat Rate mL/min 11 L Glucose Level 99 Calcium Level 8.4 Urine Color YELLOW Urine Clarity SLIGHTLY CLOUDY A Urine pH 5.0 Urine Specific [place] 1.015 Urine Ketones NEGATIVE Urine Nitrite NEGATIVE Urine Bilirubin NEGATIVE Urine Urobilinogen NEGATIVE Urine Leukocyte Esterase TRACE A Urine Microscopic RBC > 182 H Urine Microscopic WBC 11 H Urine Bacteria FEW A Urine Hemoglobin 3+ H Urine Glucose NEGATIVE Urine Total Protein 2+ H Subjective 24 Hr Interval Summary Free Text/Dictation Appears agitated yesterday with increased oxygen requirements Chest x-ray shows versus loculated right effusion UOP 1320 CR down trending Exam/Review of Systems Exam Vitals Vital Signs Date Temp Pulse Resp B/P (MAP) Pulse Ox O2 O2 Flow FiO2 Time Delivery Rate 01/17/19 68 18 147/99 97 Nasal 09:42 (115) Cannula 01/17/19 98.3 08:05 01/17/19 2.0 05:32 Intake and Output 01/16/19 01/16/19 01/17/19 1515:00 23:00 07:00 IntakeIntake Total 336 ml 720 ml OutputOutput Total 320 ml 600 ml 400 ml BalanceBalance 16 ml 120 ml -400 ml Exam Exam Respiratory: decreased breath sounds on rt Cardiovascular: regular rate and rhythm Gastrointestinal: soft, bowel sounds (+) Extremities: No edema Results Results 24hrs Laboratory Tests Test 01/17/19 04:59 01/17/19 09:40 White Blood Count 5.2 Red Blood Count 3.67 L Hemoglobin 8.8 L Hematocrit 29.2 L Mean Corpuscular Volume 79.6 L Mean Corpuscular Hemoglobin 24.0 L Mean Corpuscular Hemoglobin Concent 30.1 L Red Cell Distribution Width 18.5 H Platelet Count 218 # Mean Platelet Volume 10.2 Immature Granulocytes % 0.600 H Neutrophils % 73.5 Lymphocytes % 13.2 L Monocytes % 10.6 Eosinophils % 1.5 Basophils % 0.6 Nucleated Red Blood Cells % 0.0 Immature Granulocytes # 0.030 Neutrophils # 3.8 Lymphocytes # 0.7 L Monocytes # 0.6 Eosinophils # 0.1 Basophils # 0.0 Nucleated Red Blood Cells # 0.0 Sodium Level 140 Potassium Level 4.3 Chloride Level 106 Carbon Dioxide Level 22 Anion Gap 12 Blood Urea Nitrogen 74 H Creatinine 4.92 H Est Glomerular Filtrat Rate mL/min 11 L Glucose Level 99 Calcium Level 8.4 Urine Color YELLOW Urine Clarity SLIGHTLY CLOUDY A Urine pH 5.0 Urine Specific [place] 1.015 Urine Ketones NEGATIVE Urine Nitrite NEGATIVE Urine Bilirubin NEGATIVE Urine Urobilinogen NEGATIVE Urine Leukocyte Esterase TRACE A Urine Microscopic RBC > 182 H Urine Microscopic WBC 11 H Urine Bacteria FEW A Urine Hemoglobin 3+ H Urine Glucose NEGATIVE Urine Total Protein 2+ H Medications Medication Current Medications IV Flush (NS 3 ml) 3 ml PER PROTOCOL IV ; Start 01/12/19 at 13:30 Ondansetron HCl (Zofran Inj) 4 mg Q6H PRN IV NAUSEA/VOMITING Last administered on 01/16/19at 09:31; Admin Dose 4 MG; Start 01/12/19 at 13:30 Acetaminophen (Tylenol Tab) 650 mg Q6H PRN PO .PAIN 1-3 OR TEMP; Start 01/12/19 at 13:30 Acetaminophen/ Hydrocodone Bitart ([place] (5/325)) 1 tab Q6H PRN PO .MOD PAIN 4- 6; Start 01/12/19 at 13:30 Morphine Sulfate (morphine) 2 mg Q4H PRN IV .SEVERE PAIN 7-10 Last administered on 01/17/19at 06:14; Admin Dose 2 MG; Start 01/12/19 at 13:30 Docusate Sodium (Colace) 100 mg Q12H PRN PO .CONSTIPATION; Start 01/12/19 at 13:30 Magnesium Hydroxide (Milk Of Mag) 30 ml DAILY PRN PO .CONSTIPATION; Start 01/12/19 at 13:30 Heparin Sodium (Porcine) (Heparin (5000 Units/1ml)) 5,000 unit Q12 SC Last administered on 01/17/19at 09:32; Admin Dose 5,000 UNIT; Start 01/12/19 at 21:00 Lorazepam (Ativan) 0.5 mg Q6H PRN IV ANXIETY Last administered on 01/17/19at 05:28; Admin Dose 0.5 MG; Start 01/12/19 at 13:30 Albuterol/ Ipratropium (Duoneb) 3 ml Q4H RESP THERAPY PRN HHN SHORTNESS OF BREATH Last administered on 01/12/19 15:47; Admin Dose 3 ML; Start 01/12/19 at 13:30 Hydralazine HCl (Apresoline) 10 mg Q6H PRN IV ELEVATED BLOOD PRESSURE; Start 01/12/19 at 13:30 Nitroglycerin (Nitroglycerin (Sl Tab) 0.4 Mg) 1 tab Q5M PRN SL ANGINA Last administered on 01/13/19 03:53; Admin Dose 1 TAB; Start 01/12/19 at 13:30 Carvedilol (Coreg) 25 mg BID PO Last administered on 01/17/19 09:45; Admin Dose 25 MG; Start 01/12/19 at 21:00 Clonidine HCl (Catapres-Tts 3 Patch) 0.3 patch Q7D TRANSDERM Last administered on 01/12/19 20:44; Admin Dose 0.3 PATCH; Start 01/12/19 at 18:30 Isosorbide Mononitrate (Imdur) 60 mg DAILY PO Last administered on 01/17/19 09:45; Admin Dose 60 MG; Start 01/12/19 at 18:30 Calcium Acetate (Phoslo) 667 mg WITH MEALS PO Last administered on 01/17/19 09:45; Admin Dose 667 MG; Start 01/13/19 at 17:55 Nifedipine (Procardia Xl) 30 mg DAILY PO Last administered on 01/17/19 09:45; Admin Dose 30 MG; Start 01/15/19 at 09:00 Ferric Sodium Gluconate Complex 125 mg/Sodium Chloride 100 ml @ 100 mls/hr DAILY@1300 IVPB Last administered on 01/16/19 13:28; Admin Dose 100 MLS/HR; Start 01/15/19 at 13:00; Stop 01/17/19 at 13:59 JESSICA NOLAN MD Jan 17, 2019 12:12
[2019-01-17] MEDS: SOD FERRIC GLUC COMPLX 125 MG in SOD CHLORIDE 0.9% 100 ML IVPB SCH (13:08)
[2019-01-17] MEDS: POLYETHYLENE GLYCOL 17 GM PACKET PO SCH (14:15)
[2019-01-17 20:00] VITALS: BP 112/78; PULSE 68; RESP 19
[2019-01-17] MEDS ORDERED: ALBUTEROL/IPRATROPIUM (NEB) 3 ML AMP HHN PRN (23:30)
[2019-01-17] MEDS: ALBUTEROL/IPRATROPIUM (NEB) 3 ML AMP HHN PRN (23:45)
[2019-01-18] VITALS (12 sets, daily range): BP systolic 82–120; BP diastolic 59–89; PULSE 62–76; RESP 18–19
[2019-01-18] MEDS ORDERED: morphine 2 MG INJ IV STA ×2 (02:53→08:14)
[2019-01-18] MEDS ORDERED: FUROSEMIDE 40 MG INJ IV ONE ×2 (03:00)
[2019-01-18] MEDS ORDERED: ALBUTEROL/IPRATROPIUM (NEB) 3 ML AMP INH PRN ×2 (03:30→04:00)
[2019-01-18] MEDS: PANTOPRAZOLE (EC) 40 MG TAB PO SCH (06:00)
--- NOTE | 2019-01-18 07:25 | EN ---
Date/Time of Note Date/Time of Note DATE: 01/18/19 TIME: 07:24 Event Note Medicine Medicine Event Note Patient with chest pain. Said it had been present for two weeks Troponin came back at 39 Start heparin I have contacted Dr Del Toro from cardi[facility] Jan 18, 2019 07:25
[2019-01-18] MEDS ORDERED: HEPARIN 1000 UNITS/ML 10 ML INJ IV ONE (07:30)
[2019-01-18] MEDS ORDERED: ASPIRIN 325 MG TAB PO ONE (07:30)
[2019-01-18] MEDS ORDERED: HEPARIN 1000 UNITS/ML 10 ML INJ IV PRN (07:30)
[2019-01-18] MEDS: NITROGLYCERIN (SL) 0.4 MG TAB SL PRN (08:00)
[2019-01-18] MEDS: HEPARIN 25000 UNITS/250 ML 250 ML IV SCH ×3 (08:39→23:16)
[2019-01-18] MEDS ORDERED: FUROSEMIDE 20 MG TAB PO SCH (09:00)
[2019-01-18] MEDS ORDERED: PANTOPRAZOLE (EC) 40 MG TAB PO SCH (09:00)
--- NOTE | 2019-01-18 09:10 | CONS ---
Assessment/Plan Cardiology Heart Failure Type: Acute on Chronic Heart Failure Type: Diastolic Assessment/Plan Hospital Course (Demo Recall) 63 year-old with CKD stage 4 and hypertension and diastolic heart failure, admitted with dyspnea and acute renal failure, now with new elevation of troponin and ekg changes suggestive of acute NSTEMI. Patient is somewhat somnolent and still complaining of pain and dyspnea. Utox 3 days ago (3 days into hospital admission) positive for cocaine, suggesting she may have used cocaine in the hospital, which could be a contributing cause to her current condition. Impression: NSTEMI Acute on chronic diastolic hf acute on chronic renal insufficiency Cocaine use Hypertension, currently relatively hypotensive Recommendations: I recommend coronary angiography. Briefly discussed with the patient, who upon hearing risk to her kidneys said she did not want the procedure. Explained possible permanent risk of damage to the heart and possible threat to her life if angiogram and angioplasty not done. She gave me the number of her daughter Svetlana and Svetlana's father, Aston. I have left a message for Svetlana to call back; I could not leave a message for Aston as his mailbox is full. In the meantime, agree with ASA and heparin drip. Heart rate is already in the 60's so no need to additionally beta block her. Even with cocaine use, the risk of beta-blockers is more theoretical than actual, so would beta block if felt appropriate. Will add a statin. CXR and echocardiogram ordered this morning. Would have a low threshhold to transfer to an ICU setting. Consultation Date/Type/Reason Admit Date/Time Jan 12, 2019 at 12:23 Date of Consultation: Jan 18, 2019 Type of Consult Cardiology Reason for Consultation elevated troponin and chest pain Requesting Provider: KATHY ZARAGOZA MD Date/Time of Note DATE: 01/18/19 TIME: 08:54 Hx of Present Illness 63 yo homeless woman with history of hypertension, chronic renal insufficiency, transferred from an outside hospital for dyspnea and acute renal insufficiency. She has been treated with diuretics, is known to have pleural effusions. Echo from admission demonstrates severe concentric LVH with normal systolic function. Last night around 2 am she complained of chest pain and worsening dyspnea. EKG was performed and was abnormal, we have no baseline EKG for comparison (pt transferred to [facility] from an outside hospital), and troponin was 39, with a normal baseline troponin on admission. At present, patient is somewhat somnolent, moaning, able to answer fairly simple questions. She states she still has chest pain, it is a 6/10, and she's having a hard time breathing. This am she received one sl ntg and a dose of morphine IV. She denies nausea or vomiting. Constitutional: requiring O2 Eyes: no complaints ENT: no complaints Respiratory: shortness of breath Cardiovascular: chest pain Gastrointestinal: no complaints Genitourinary: no complaints Musculoskeletal: no complaints Skin: no complaints Neurologic: no complaints Endocrine: no complaints Lymphatic: no complaints Psychological: no complaints Immunologic: no complaints Past Medical History Medical History: congestive heart failure, hypertension, renal disease Home Meds Reported Medications Clonidine Patch (CLONIDINE PATCH) 0.3 Mg/24 Hr Patch, 1 PATCH.WK TD Q7D, #4 PATCH.WK 01/12/19 Aspirin* (Aspirin* Chew) 81 Mg Tab.chew, 81 MG PO DAILY, TAB.CHEW 01/12/19 Carvedilol* (Carvedilol*) 25 Mg Tablet, 25 MG PO BID, #60 TAB 01/12/19 Furosemide* (Furosemide*) 20 Mg Tablet, 20 MG PO DAILY, #60 TAB 01/12/19 Isosorbide Mononitrate* (Isosorbide Mononitrate*) 60 Mg Tab.er.24h, 60 MG PO DAILY, TAB 01/12/19 Ipratropium-Albuterol (Ipratropium-Albuterol) 0.5-3 Mg/3 Ml Ampul.neb, 3 ML INHALATION Q6 PRN for WHEEZING AND SOB, #30 VIAL 11/20/18 Pantoprazole* (Protonix*) 40 Mg Tablet.dr, 40 MG PO DAILY, TAB 11/20/18 Docusate Sodium* (Dok*) 100 Mg Tablet, 100 MG PO BID, #60 CAP 11/20/18 Nifedipine* (Nifedipine ER*) 60 Mg Tablet.sa, 60 MG PO DAILY, TAB.SA 11/20/18 Tiotropium [place]* (Spiriva*) 18 Mcg Cap.w.dev, 1 CAP INHALATION DAILY, #30 CAP 11/20/18 Fluticasone-Vilanterol (Breo Ellipta Inhaler) 100-25 Mcg/Actuation Aer.pow.ba, 1 PUFF INHALATION DAILY, #1 INHALER 11/20/18 Metoprolol Succinate* (Toprol XL*) 50 Mg Tab.er.24h, 50 MG PO DAILY, #30 TAB 11/20/18 Medications Current Medications IV Flush (NS 3 ml) 3 ml PER PROTOCOL IV ; Start 01/12/19 at 13:30 Ondansetron HCl (Zofran Inj) 4 mg Q6H PRN IV NAUSEA/VOMITING Last administered on 01/16/19at 09:31; Admin Dose 4 MG; Start 01/12/19 at 13:30 Acetaminophen (Tylenol Tab) 650 mg Q6H PRN PO .PAIN 1-3 OR TEMP; Start 01/12/19 at 13:30 Acetaminophen/ Hydrocodone Bitart ([place] (5/325)) 1 tab Q6H PRN PO .MOD PAIN 4- 6; Start 01/12/19 at 13:30 Docusate Sodium (Colace) 100 mg Q12H PRN PO .CONSTIPATION; Start 01/12/19 at 13:30 Magnesium Hydroxide (Milk Of Mag) 30 ml DAILY PRN PO .CONSTIPATION; Start 01/12/19 at 13:30 Lorazepam (Ativan) 0.5 mg Q6H PRN IV ANXIETY Last administered on 01/17/19 05:28; Admin Dose 0.5 MG; Start 01/12/19 at 13:30 Hydralazine HCl (Apresoline) 10 mg Q6H PRN IV ELEVATED BLOOD PRESSURE; Start 01/12/19 at 13:30 Nitroglycerin (Nitroglycerin (Sl Tab) 0.4 Mg) 1 tab Q5M PRN SL ANGINA Last administered on 01/18/19at 08:00; Admin Dose 1 TAB; Start 01/12/19 at 13:30 Carvedilol (Coreg) 25 mg BID PO Last administered on 01/17/19 20:44; Admin Dose 25 MG; Start 01/12/19 at 21:00 Clonidine HCl (Catapres-Tts 3 Patch) 0.3 patch Q7D TRANSDERM Last administered on 01/12/19at 20:44; Admin Dose 0.3 PATCH; Start 01/12/19 at 18:30 Isosorbide Mononitrate (Imdur) 60 mg DAILY PO Last administered on 01/17/19 09:45; Admin Dose 60 MG; Start 01/12/19 at 18:30 Calcium Acetate (Phoslo) 667 mg WITH MEALS PO Last administered on 01/17/19at 18:38; Admin Dose 667 MG; Start 01/13/19 at 17:55 Nifedipine (Procardia Xl) 30 mg DAILY PO Last administered on 01/17/19at 09:45; Admin Dose 30 MG; Start 01/15/19 at 09:00 Polyethylene Glycol (Miralax) 17 gm DAILY PO Last administered on 01/17/19at 14:15; Admin Dose 17 GM; Start 01/17/19 at 14:00 Morphine Sulfate (morphine) 6 mg Q4H PRN PO SEVERE PAIN LEVEL 7-10; Start 01/17/19 at 22:30 Aspirin (Aspirin) 81 mg DAILY PO ; Start 01/18/19 at 09:00 Docusate Sodium (Colace) 100 mg BID PO ; Start 01/18/19 at 09:00 Metoprolol Succinate (Toprol Xl) 50 mg DAILY PO ; Start 01/18/19 at 09:00 Pantoprazole (Protonix Tab) 40 mg DAILY@0600 PO ; Start 01/18/19 at 06:00 Albuterol/ Ipratropium (Duoneb) 3 ml Q6 PRN INH WHEEZING AND SOB; Start 01/18/19 at 04:00 Heparin Sodium (Porcine) (Heparin (1000 Units/ml)) 3,600 unit ONCE ONCE IV ; Start 01/18/19 at 07:30; Stop 01/18/19 at 07:31; Status UNV Heparin Sodium (Porcine) (Heparin (1000 Units/ml)) 3,600 unit PER PROTOCOL PRN IV aPTT<47; Start 01/18/19 at 07:30 Heparin Sodium (Porcine) 250 ml @ 7.003 mls/ hr PER PROTOCOL IV Last administered on 01/18/19at 08:39; Admin Dose 7 MLS/HR; Start 01/18/19 at 07:30 Allergies: Coded Allergies: No Known Allergies (Verified Allergy, Unknown, 11/20/18) Family History Significant Family History: no pertinent family hx Social History Alcohol Use: other (unknown) Smoking Status: Former smoker Drug Use: cocaine (patient states last used 3 weeks ago, but urine tox positive on 01/15/19), marijuana Exam/Review of Systems Vital Signs Vitals Vital Signs Date Temp Pulse Resp B/P (MAP) Pulse Ox O2 O2 Flow FiO2 Time Delivery Rate 01/18/19 66 08:24 01/18/19 97.5 18 107/74 91 07:46 (85) 01/18/19 Nasal 4.0 05:59 Cannula 01/17/19 21 23:45 Intake and Output 01/17/19 01/17/19 01/18/19 1515:00 23:00 07:00 IntakeIntake Total 100 ml 700 ml 50 ml OutputOutput Total 600 ml 450 ml BalanceBalance 100 ml 100 ml -400 ml Exam Constitutional: well developed, distress (moaning) Psych: anxiety, other (somnolent) Head: normocephalic, atraumatic Eyes: nl conjunctiva, EOMI, nl lids, nl sclera ENMT: nl external ears & nose, nl lips & teeth, nl nasal mucosa & septum Neck: supple; No jvd, No bruits Respiratory: clear to auscultation, normal air movement Cardiovascular: regular rate and rhythm; No nl pulses (radial pulses diminished, DP pulses normal, no femoral bruits), No murmurs/extra sounds Gastrointestinal: soft, non-tender, hepatomegaly, tender (in RUQ) Musculoskeletal: nl extremities to inspection Extremities: No normal pulses, No edema Neurological: nl speech, lethargic Skin: nl turgor; No rash or lesions Labs Result Diagram: 01/18/19 0745 01/18/19 0343 Results 24hrs Laboratory Tests Test 01/17/19 09:40 01/17/19 18:30 01/18/19 03:43 01/18/19 07:45 Urine Color YELLOW YELLOW Urine Clarity SLIGHTLY CLOUDY SLIGHTLY CLOUDY A A Urine pH 5.0 5.0 Urine Specific 1.015 1.015 [place] Urine Ketones NEGATIVE NEGATIVE Urine Nitrite NEGATIVE NEGATIVE Urine Bilirubin NEGATIVE NEGATIVE Urine NEGATIVE NEGATIVE Urobilinogen Urine Leukocyte TRACE A TRACE A Esterase Urine > 182 H 65 H Microscopic RBC Urine 11 H 5 Microscopic WBC Urine Bacteria FEW A FEW A Urine Hemoglobin 3+ H 2+ H Urine Glucose NEGATIVE NEGATIVE Urine Total 2+ H 1+ H Protein Urine Mucus FEW A White Blood 5.9 6.5 Count Red Blood Count 3.87 L 4.08 L Hemoglobin 9.1 L 9.8 L Hematocrit 31.1 L 32.7 L Mean Corpuscular 80.4 L 80.1 L Volume Mean Corpuscular 23.5 L 24.0 L Hemoglobin Mean Corpuscular 29.3 L 30.0 L Hemoglobin Tabitha nt Red Cell 19.1 H 19.2 H Distribution Width Platelet Count 241 158 # Mean Platelet 10.4 10.4 Volume Immature 0.700 H 0.800 H Granulocytes % Neutrophils % 78.6 H 79.3 H Lymphocytes % 10.6 L 9.7 L Monocytes % 8.8 9.1 Eosinophils % 0.8 0.6 Basophils % 0.5 0.5 Nucleated Red 0.0 0.0 Blood Cells % Immature 0.040 H 0.050 H Granulocytes # Neutrophils # 4.7 5.2 Lymphocytes # 0.6 L 0.6 L Monocytes # 0.5 0.6 Eosinophils # 0.1 0.0 Basophils # 0.0 0.0 Nucleated Red 0.0 0.0 Blood Cells # Sodium Level 138 Potassium Level 4.3 Chloride Level 106 Carbon Dioxide 22 Level Anion Gap 10 Blood Urea 68 H Nitrogen Creatinine 4.35 H Est Glomerular 13 L Filtrat Rate mL/min Glucose Level 117 Calcium Level 8.7 Troponin I 39.300 *H Prothrombin Time 14.1 Prothrombin Time 1.1 Ratio INR 1.08 International Normalized Ratio Activated 44.2 H Partial Thrombop last Time Imaging Imaging EKG this am shows NSR, T inversions in inferior and anterolateral leads and [address] depression in anterolateral leads Medications Medications Current Medications IV Flush (NS 3 ml) 3 ml PER PROTOCOL IV ; Start 01/12/19 at 13:30 Ondansetron HCl (Zofran Inj) 4 mg Q6H PRN IV NAUSEA/VOMITING Last administered on 01/16/19at 09:31; Admin Dose 4 MG; Start 01/12/19 at 13:30 Acetaminophen (Tylenol Tab) 650 mg Q6H PRN PO .PAIN 1-3 OR TEMP; Start 01/12/19 at 13:30 Acetaminophen/ Hydrocodone Bitart ([place] (5/325)) 1 tab Q6H PRN PO .MOD PAIN 4- 6; Start 01/12/19 at 13:30 Docusate Sodium (Colace) 100 mg Q12H PRN PO .CONSTIPATION; Start 01/12/19 at 13:30 Magnesium Hydroxide (Milk Of Mag) 30 ml DAILY PRN PO .CONSTIPATION; Start 01/12/19 at 13:30 Lorazepam (Ativan) 0.5 mg Q6H PRN IV ANXIETY Last administered on 01/17/19 05:28; Admin Dose 0.5 MG; Start 01/12/19 at 13:30 Hydralazine HCl (Apresoline) 10 mg Q6H PRN IV ELEVATED BLOOD PRESSURE; Start 01/12/19 at 13:30 Nitroglycerin (Nitroglycerin (Sl Tab) 0.4 Mg) 1 tab Q5M PRN SL ANGINA Last administered on 01/18/19 08:00; Admin Dose 1 TAB; Start 01/12/19 at 13:30 Carvedilol (Coreg) 25 mg BID PO Last administered on 01/17/19 20:44; Admin Dose 25 MG; Start 01/12/19 at 21:00 Clonidine HCl (Catapres-Tts 3 Patch) 0.3 patch Q7D TRANSDERM Last administered on 01/12/19 20:44; Admin Dose 0.3 PATCH; Start 01/12/19 at 18:30 Isosorbide Mononitrate (Imdur) 60 mg DAILY PO Last administered on 01/17/19 09:45; Admin Dose 60 MG; Start 01/12/19 at 18:30 Calcium Acetate (Phoslo) 667 mg WITH MEALS PO Last administered on 01/17/19 18:38; Admin Dose 667 MG; Start 01/13/19 at 17:55 Nifedipine (Procardia Xl) 30 mg DAILY PO Last administered on 01/17/19 09:45; Admin Dose 30 MG; Start 01/15/19 at 09:00 Polyethylene Glycol (Miralax) 17 gm DAILY PO Last administered on 01/17/19 14:15; Admin Dose 17 GM; Start 01/17/19 at 14:00 Morphine Sulfate (morphine) 6 mg Q4H PRN PO SEVERE PAIN LEVEL 7-10; Start 01/17/19 at 22:30 Aspirin (Aspirin) 81 mg DAILY PO ; Start 01/18/19 at 09:00 Docusate Sodium (Colace) 100 mg BID PO ; Start 01/18/19 at 09:00 Metoprolol Succinate (Toprol Xl) 50 mg DAILY PO ; Start 01/18/19 at 09:00 Pantoprazole (Protonix Tab) 40 mg DAILY@0600 PO ; Start 01/18/19 at 06:00 Albuterol/ Ipratropium (Duoneb) 3 ml Q6 PRN INH WHEEZING AND SOB; Start 01/18/19 at 04:00 Heparin Sodium (Porcine) (Heparin (1000 Units/ml)) 3,600 unit ONCE ONCE IV ; Start 01/18/19 at 07:30; Stop 01/18/19 at 07:31; Status UNV Heparin Sodium (Porcine) (Heparin (1000 Units/ml)) 3,600 unit PER PROTOCOL PRN IV aPTT<47; Start 01/18/19 at 07:30 Heparin Sodium (Porcine) 250 ml @ 7.003 mls/ hr PER PROTOCOL IV Last adm inistered on 01/18/19at 08:39; Admin Dose 7 MLS/HR; Start 01/18/19 at 07:30 EBER HARTLEY Jan 18, 2019 09:09
[2019-01-18] MEDS: CALCIUM ACETATE 667 MG CAP PO SCH ×3 (09:19→18:16)
[2019-01-18] MEDS: ISOSORBIDE MONONITRATE(SR)60 MG TAB PO SCH (09:20)
[2019-01-18] MEDS: POLYETHYLENE GLYCOL 17 GM PACKET PO SCH (09:21)
[2019-01-18] MEDS: DOCUSATE SODIUM 100 MG CAP PO SCH ×2 (09:23→20:51)
[2019-01-18] MEDS: ASPIRIN 81 MG TAB PO SCH (09:23)
[2019-01-18] MEDS ORDERED: ATORVASTATIN 80 MG TAB PO ONE (09:30)
[2019-01-18] MEDS: METOPROLOL (XL) 50 MG TAB PO SCH (10:25)
[2019-01-18] MEDS: NIFEdipine (XL) 30 MG TAB PO SCH (10:25)
--- NOTE | 2019-01-18 10:45 | CONS ---
Assessment/Plan Assessment/Plan Assessment/Plan (Daily) 1. acute on chronic renal disease. CKD IV On last admission in 10/2018, already creatinine was in 3.59 and then had peaked up to 4.2 and on discharge was 2.76; however on this admission was 3.39. It could be very well because of cardiorenal disease on CKD vs ATN The patient has history of hepatitis C, could be possibility of some glomerulonephritis as well.however UA no active sediment on admission Pt has been non compliant with meds Cr comtinue to uptrend likley ATN, Renal doppler was neg for KAYLA Pt had BP DROPS from 180>90s now further hypotensive first UA neg for any active sediment now UA shows some RBC Cr had been downtrended yesterday as it had peaked to 5.28 Chest xRay worseining rt sided effusion 3. History of proteinuria. 4. Hypertension, controlled 5. History of hepatitis C. 6 Fe def anemia 7 NSTEMI with EKG changes and +Trop Plan - Repeat Chest Ray with worse rt loculated effusion consider thoracentesis/US -? Pul consult - iv lasix if BP tolerted -Spoke to the family at bedside and also the patient in case patient since patient needs coronary angiography patient is at very high risk of contrast nephropathy will monitor creatinine /Electrolytes and UOP 24-48 hours after as she already has CKD stage IV and and will monitor for 24-48 hours after angiography to see for hemodialysis needs there is also a possibility that hemodialysis could be temporary which is less likely , however given the patient had CKD stage III-IV before there could also be a possibility the patient needing permanent hemodialysis, family and patient and deciding . But if patient had a true coronary event then coronary angiography would be a life- saving procedure -Consider transfer to higher level of care to ICU avoid blood pressure drops -avoid bp drops To increase renal perfusion - renally dose all meds - avoid nephrotoxins Consultation Date/Type/Reason Admit Date/Time Jan 12, 2019 at 12:23 Initial Consult Date Requesting Provider: KATHY ZARAGOZA MD Date/Time of Note DATE: 01/18/19 TIME: 10:45 24 HR Interval Summary Free Text/Dictation Patient was transferred to telemetry due to chest pain troponin elevated to 39., Chest x-ray shows worsening right-sided effusion Exam/Review of Systems Exam Vitals Vital Signs Date Temp Pulse Resp B/P (MAP) Pulse Ox O2 O2 Flow FiO2 Time Delivery Rate 01/18/19 65 112/82 09:18 (92) 01/18/19 97.5 18 91 07:46 01/18/19 Nasal 4.0 07:20 Cannula 01/17/19 21 23:45 Intake and Output 01/17/19 01/17/19 01/18/19 1515:00 23:00 07:00 IntakeIntake Total 100 ml 700 ml 50 ml OutputOutput Total 600 ml 450 ml BalanceBalance 100 ml 100 ml -400 ml Exam Respiratory: decreased breath sounds on rt Cardiovascular: regular rate and rhythm Gastrointestinal: soft, bowel sounds (+) Extremities: No edema Results Result Diagram: 01/18/19 0745 01/18/19 0343 Results 24hrs Laboratory Tests Test 01/17/19 18:30 01/18/19 03:43 01/18/19 07:45 01/18/19 09:21 Urine Color YELLOW Urine Clarity SLIGHTLY CLOUDY A Urine pH 5.0 Urine Specific 1.015 [place] Urine Ketones NEGATIVE Urine Nitrite NEGATIVE Urine Bilirubin NEGATIVE Urine NEGATIVE Urobilinogen Urine Leukocyte TRACE A Esterase Urine 65 H Microscopic RBC Urine 5 Microscopic WBC Urine Bacteria FEW A Urine Mucus FEW A Urine Hemoglobin 2+ H Urine Glucose NEGATIVE Urine Total 1+ H Protein White Blood 5.9 6.5 Count Red Blood Count 3.87 L 4.08 L Hemoglobin 9.1 L 9.8 L Hematocrit 31.1 L 32.7 L Mean Corpuscular 80.4 L 80.1 L Volume Mean Corpuscular 23.5 L 24.0 L Hemoglobin Mean Corpuscular 29.3 L 30.0 L Hemoglobin Tabitha nt Red Cell 19.1 H 19.2 H Distribution Width Platelet Count 241 158 # Mean Platelet 10.4 10.4 Volume Immature 0.700 H 0.800 H Granulocytes % Neutrophils % 78.6 H 79.3 H Lymphocytes % 10.6 L 9.7 L Monocytes % 8.8 9.1 Eosinophils % 0.8 0.6 Basophils % 0.5 0.5 Nucleated Red 0.0 0.0 Blood Cells % Immature 0.040 H 0.050 H Granulocytes # Neutrophils # 4.7 5.2 Lymphocytes # 0.6 L 0.6 L Monocytes # 0.5 0.6 Eosinophils # 0.1 0.0 Basophils # 0.0 0.0 Nucleated Red 0.0 0.0 Blood Cells # Sodium Level 138 Potassium Level 4.3 Chloride Level 106 Carbon Dioxide 22 Level Anion Gap 10 Blood Urea 68 H Nitrogen Creatinine 4.35 H Est Glomerular 13 L Filtrat Rate mL/min Glucose Level 117 Calcium Level 8.7 Troponin I 39.300 *H 36.700 *H Prothrombin Time 14.1 Prothrombin Time 1.1 Ratio INR 1.08 International Normalized Ratio Activated 44.2 H Partial Thrombop last Time Lab Scanned REFERENCE LAB Report Medications Medication Current Medications IV Flush (NS 3 ml) 3 ml PER PROTOCOL IV ; Start 01/12/19 at 13:30 Ondansetron HCl (Zofran Inj) 4 mg Q6H PRN IV NAUSEA/VOMITING Last administered on 01/16/19at 09:31; Admin Dose 4 MG; Start 01/12/19 at 13:30 Acetaminophen (Tylenol Tab) 650 mg Q6H PRN PO .PAIN 1-3 OR TEMP; Start 01/12/19 at 13:30 Acetaminophen/ Hydrocodone Bitart ([place] (5/325)) 1 tab Q6H PRN PO .MOD PAIN 4- 6; Start 01/12/19 at 13:30 Docusate Sodium (Colace) 100 mg Q12H PRN PO .CONSTIPATION; Start 01/12/19 at 13:30 Magnesium Hydroxide (Milk Of Mag) 30 ml DAILY PRN PO .CONSTIPATION; Start 01/12/19 at 13:30 Lorazepam (Ativan) 0.5 mg Q6H PRN IV ANXIETY Last administered on 01/17/19at 05:28; Admin Dose 0.5 MG; Start 01/12/19 at 13:30 Hydralazine HCl (Apresoline) 10 mg Q6H PRN IV ELEVATED BLOOD PRESSURE; Start 01/12/19 at 13:30 Nitroglycerin (Nitroglycerin (Sl Tab) 0.4 Mg) 1 tab Q5M PRN SL ANGINA Last administered on 01/18/19at 08:00; Admin Dose 1 TAB; Start 01/12/19 at 13:30 Carvedilol (Coreg) 25 mg BID PO Last administered on 01/18/19at 09:19; Admin Dose 25 MG; Start 01/12/19 at 21:00 Clonidine HCl (Catapres-Tts 3 Patch) 0.3 patch Q7D TRANSDERM Last administered on 01/12/19at 20:44; Admin Dose 0.3 PATCH; Start 01/12/19 at 18:30 Isosorbide Mononitrate (Imdur) 60 mg DAILY PO Last administered on 01/18/19 09:20; Admin Dose 60 MG; Start 01/12/19 at 18:30 Calcium Acetate (Phoslo) 667 mg WITH MEALS PO Last administered on 01/18/19 09:19; Admin Dose 667 MG; Start 01/13/19 at 17:55 Nifedipine (Procardia Xl) 30 mg DAILY PO Last administered on 01/18/19 10:25; Admin Dose 30 MG; Start 01/15/19 at 09:00 Polyethylene Glycol (Miralax) 17 gm DAILY PO Last administered on 01/18/19 09:21; Admin Dose 17 GM; Start 01/17/19 at 14:00 Morphine Sulfate (morphine) 6 mg Q4H PRN PO SEVERE PAIN LEVEL 7-10; Start 01/17/19 at 22:30 Aspirin (Aspirin) 81 mg DAILY PO Last administered on 01/18/19 09:23; Admin Dose 81 MG; Start 01/18/19 at 09:00 Docusate Sodium (Colace) 100 mg BID PO Last administered on 01/18/19 09:23; Admin Dose 100 MG; Start 01/18/19 at 09:00 Metoprolol Succinate (Toprol Xl) 50 mg DAILY PO Last administered on 01/18/19 10:25; Admin Dose 50 MG; Start 01/18/19 at 09:00 Pantoprazole (Protonix Tab) 40 mg DAILY@0600 PO ; Start 01/18/19 at 06:00 Albuterol/ Ipratropium (Duoneb) 3 ml Q6 PRN INH WHEEZING AND SOB; Start 01/18/19 at 04:00 Heparin Sodium (Porcine) (Heparin (1000 Units/ml)) 3,600 unit PER PROTOCOL PRN IV aPTT<47; Start 01/18/19 at 07:30 Heparin Sodium (Porcine) 250 ml @ 7.003 mls/ hr PER PROTOCOL IV Last administered on 01/18/19at 08:39; Admin Dose 7 MLS/HR; Start 01/18/19 at 07:30 Atorvastatin Calcium (Lipitor) 80 mg HS PO ; Start 01/18/19 at 21:00 JESSICA NOLAN MD Jan 18, 2019 10:45
[2019-01-18] MEDS: ONDANSETRON 4 MG INJ IV PRN (12:32)
--- NOTE | 2019-01-18 17:18 | PN ---
Date/Time of Note Date/Time of Note DATE: 01/18/19 TIME: 17:09 Assessment/Plan VTE Prophylaxis Risk score (from Ns)>0 risk: 2 SCD applied (from Ns): Yes Pharmacological prophylaxis: heparin Lines/Catheters IV [facility]from [facility] Saline Lock Urinary Cath still in place: Yes Reason Cath still needed: other (indicate) (urine output) Assessment/Plan Assessment/Plan 63-year-old homeless woman with prior history of chronic kidney disease, questionable chronic obstructive pulmonary disease, congestive heart failure, hypertension, bilateral renal artery stenosis, hepatitis C and anemia who comes in with shortness of breath with signs of congestive heart failure exacerbation and also acute on chronic renal insufficiency. #NSTEMI - Had elevated trops, TWIs in hospital early AM on 01/18. - Due to patient's history of poor compliance, will treat medically with heparin gtt, no cath. Also patient refused cardiac cath. - Possibility of in-hospital cocaine use, Utox positive even 6 days after admission. # Pulmonary edema # Pleural effusion # Shortness of breath - Had pleural effusion with thoracentesis in 10/2018. Was transudative by protein, no serum LDH to compare it to. Culture and pathology negative. Now CXR shows loculation of that effusion. - Will get CT chest to further evaluate effusion. - CXR shows possible "diffuse infiltrates". But no fever, WBC to suggest infection. Will hold off on antibiotics. - Continue to keep head of the bed greater than 30 degrees - Currently holding IV diuresis. - Monitor ins and outs, daily weights follow-up recommendations from PT, OT consults. -Follow-up renal recommendations # Acute on chronic kidney disease - Per renal team, on last admission in 10/2018 already creatinine was in 3.59 and then had peaked up to 4.2 and on discharge was 2.76; however on this admission was 3.39. After diuresis higher at 5.1, trending up the last couple of days-could be because of cardiorenal disease susan sara worsening of renal artery stenosis (Of note patient had a renal ultrasound with arterial Doppler performed November 08, 2018: It showed ultrasound evidence of severe bilateral renal artery stenoses but repeat shows no stenosis). The patient has history of hepatitis C, could be possibility of some glomerulonephritis as well. Patient has not been on Lasix actually secondary to elevated creatinine levels. -Continue phosphate binder, monitor BUN and creatinine levels very carefully -Monitor ins and outs -Follow-up renal recommendations # History of hypertension. She presented at the outside hospital with mild hypertensive urgency, but this has resolved now. -Monitor, continue hydralazine p.r.n., clonidine patch #Homelessness - Social work consult Result Diagram: 01/18/19 0745 01/18/19 0343 Results 24hrs Laboratory Tests Test 01/17/19 18:30 01/18/19 03:43 01/18/19 07:45 01/18/19 09:21 Urine Color YELLOW Urine Clarity SLIGHTLY CLOUDY A Urine pH 5.0 Urine Specific 1.015 [place] Urine Ketones NEGATIVE Urine Nitrite NEGATIVE Urine Bilirubin NEGATIVE Urine NEGATIVE Urobilinogen Urine Leukocyte TRACE A Esterase Urine 65 H Microscopic RBC Urine 5 Microscopic WBC Urine Bacteria FEW A Urine Mucus FEW A Urine Hemoglobin 2+ H Urine Glucose NEGATIVE Urine Total 1+ H Protein White Blood 5.9 6.5 Count Red Blood Count 3.87 L 4.08 L Hemoglobin 9.1 L 9.8 L Hematocrit 31.1 L 32.7 L Mean Corpuscular 80.4 L 80.1 L Volume Mean Corpuscular 23.5 L 24.0 L Hemoglobin Mean Corpuscular 29.3 L 30.0 L Hemoglobin Tabitha nt Red Cell 19.1 H 19.2 H Distribution Width Platelet Count 241 158 # Mean Platelet 10.4 10.4 Volume Immature 0.700 H 0.800 H Granulocytes % Neutrophils % 78.6 H 79.3 H Lymphocytes % 10.6 L 9.7 L Monocytes % 8.8 9.1 Eosinophils % 0.8 0.6 Basophils % 0.5 0.5 Nucleated Red 0.0 0.0 Blood Cells % Immature 0.040 H 0.050 H Granulocytes # Neutrophils # 4.7 5.2 Lymphocytes # 0.6 L 0.6 L Monocytes # 0.5 0.6 Eosinophils # 0.1 0.0 Basophils # 0.0 0.0 Nucleated Red 0.0 0.0 Blood Cells # Sodium Level 138 Potassium Level 4.3 Chloride Level 106 Carbon Dioxide 22 Level Anion Gap 10 Blood Urea 68 H Nitrogen Creatinine 4.35 H Est Glomerular 13 L Filtrat Rate mL/min Glucose Level 117 Calcium Level 8.7 Troponin I 39.300 *H 36.700 *H Prothrombin Time 14.1 Prothrombin Time 1.1 Ratio INR 1.08 International Normalized Ratio Activated 44.2 H Partial Thrombop last Time Lab Scanned REFERENCE LAB Report Test 01/18/19 10:39 01/18/19 15:10 Urine Opiates Positive Screen Urine Negative Barbiturates Urine Negative Amphetamines Screen Urine Negative Benzodiazepines Screen Urine Cocaine Positive Screen Urine Negative Cannabinoids Activated 90.0 *H Partial Thrombop last Time Subjective 24 Hr Interval Summary Free Text/Dictation Patient had chest pain last night. Trops elevated at 40. EKG with TWIs in V1-V3. She was started on heparin gtt for NSTEMI and transferred to ICU. Discussed with patient risks and benefits of cardiac cath, including need for dialysis. Patient declined cath. Confronted patient with positive Utox, she vehemently denies use of cocaine in the hospital. Patient's and daughter at bedside this evening, updated them. Exam/Review of Systems Exam Vitals Vital Signs Date Temp Pulse Resp B/P (MAP) Pulse Ox O2 O2 Flow FiO2 Time Delivery Rate 01/18/19 97.8 65 19 82/59 (67) 94 16:15 01/18/19 2.0 14:39 01/18/19 Nasal 07:20 Cannula 01/17/19 21 23:45 Intake and Output 01/17/19 01/17/19 01/18/19 1515:00 23:00 07:00 IntakeIntake Total 100 ml 700 ml 50 ml OutputOutput Total 600 ml 450 ml BalanceBalance 100 ml 100 ml -400 ml Exam GENERAL: lying in bed, no acute distress, somnolent but arousable. HEENT: Pupils are equal, round, reactive to light. Extraocular muscles are intact. NECK: Supple. No thyromegaly. LUNGS: Absent R breath sounds. Normal L lung sounds. CARDIOVASCULAR: S1, S2 heard. No rubs or gallops. ABDOMEN: Soft, nontender, nondistended. Normal bowel sounds. No rebound or guarding. MUSCULOSKELETAL: No LE edema. Results Results 24hrs Laboratory Tests Test 01/17/19 18:30 01/18/19 03:43 01/18/19 07:45 01/18/19 09:21 Urine Color YELLOW Urine Clarity SLIGHTLY CLOUDY A Urine pH 5.0 Urine Specific 1.015 [place] Urine Ketones NEGATIVE Urine Nitrite NEGATIVE Urine Bilirubin NEGATIVE Urine NEGATIVE Urobilinogen Urine Leukocyte TRACE A Esterase Urine 65 H Microscopic RBC Urine 5 Microscopic WBC Urine Bacteria FEW A Urine Mucus FEW A Urine Hemoglobin 2+ H Urine Glucose NEGATIVE Urine Total 1+ H Protein White Blood 5.9 6.5 Count Red Blood Count 3.87 L 4.08 L Hemoglobin 9.1 L 9.8 L Hematocrit 31.1 L 32.7 L Mean Corpuscular 80.4 L 80.1 L Volume Mean Corpuscular 23.5 L 24.0 L Hemoglobin Mean Corpuscular 29.3 L 30.0 L Hemoglobin Tabitha nt Red Cell 19.1 H 19.2 H Distribution Width Platelet Count 241 158 # Mean Platelet 10.4 10.4 Volume Immature 0.700 H 0.800 H Granulocytes % Neutrophils % 78.6 H 79.3 H Lymphocytes % 10.6 L 9.7 L Monocytes % 8.8 9.1 Eosinophils % 0.8 0.6 Basophils % 0.5 0.5 Nucleated Red 0.0 0.0 Blood Cells % Immature 0.040 H 0.050 H Granulocytes # Neutrophils # 4.7 5.2 Lymphocytes # 0.6 L 0.6 L Monocytes # 0.5 0.6 Eosinophils # 0.1 0.0 Basophils # 0.0 0.0 Nucleated Red 0.0 0.0 Blood Cells # Sodium Level 138 Potassium Level 4.3 Chloride Level 106 Carbon Dioxide 22 Level Anion Gap 10 Blood Urea 68 H Nitrogen Creatinine 4.35 H Est Glomerular 13 L Filtrat Rate mL/min Glucose Level 117 Calcium Level 8.7 Troponin I 39.300 *H 36.700 *H Prothrombin Time 14.1 Prothrombin Time 1.1 Ratio INR 1.08 International Normalized Ratio Activated 44.2 H Partial Thrombop last Time Lab Scanned REFERENCE LAB Report Test 01/18/19 10:39 01/18/19 15:10 Urine Opiates Positive Screen Urine Negative Barbiturates Urine Negative Amphetamines Screen Urine Negative Benzodiazepines Screen Urine Cocaine Positive Screen Urine Negative Cannabinoids Activated 90.0 *H Partial Thrombop last Time Medications Medication Current Medications IV Flush (NS 3 ml) 3 ml PER PROTOCOL IV ; Start 01/12/19 at 13:30 Ondansetron HCl (Zofran Inj) 4 mg Q6H PRN IV NAUSEA/VOMITING Last administered on 01/18/19at 12:32; Admin Dose 4 MG; Start 01/12/19 at 13:30 Acetaminophen (Tylenol Tab) 650 mg Q6H PRN PO .PAIN 1-3 OR TEMP; Start 01/12/19 at 13:30 Acetaminophen/ Hydrocodone Bitart ([place] (5/325)) 1 tab Q6H PRN PO .MOD PAIN 4- 6; Start 01/12/19 at 13:30 Docusate Sodium (Colace) 100 mg Q12H PRN PO .CONSTIPATION; Start 01/12/19 at 13:30 Magnesium Hydroxide (Milk Of Mag) 30 ml DAILY PRN PO .CONSTIPATION; Start 01/12/19 at 13:30 Lorazepam (Ativan) 0.5 mg Q6H PRN IV ANXIETY Last administered on 01/17/19 05:28; Admin Dose 0.5 MG; Start 01/12/19 at 13:30 Hydralazine HCl (Apresoline) 10 mg Q6H PRN IV ELEVATED BLOOD PRESSURE; Start 01/12/19 at 13:30 Nitroglycerin (Nitroglycerin (Sl Tab) 0.4 Mg) 1 tab Q5M PRN SL ANGINA Last administered on 01/18/19 08:00; Admin Dose 1 TAB; Start 01/12/19 at 13:30 Carvedilol (Coreg) 25 mg BID PO Last administered on 01/18/19 09:19; Admin Dose 25 MG; Start 01/12/19 at 21:00 Clonidine HCl (Catapres-Tts 3 Patch) 0.3 patch Q7D TRANSDERM Last administered on 01/12/19 20:44; Admin Dose 0.3 PATCH; Start 01/12/19 at 18:30 Isosorbide Mononitrate (Imdur) 60 mg DAILY PO Last administered on 01/18/19 09:20; Admin Dose 60 MG; Start 01/12/19 at 18:30 Calcium Acetate (Phoslo) 667 mg WITH MEALS PO Last administered on 01/18/19 12:35; Admin Dose 667 MG; Start 01/13/19 at 17:55 Nifedipine (Procardia Xl) 30 mg DAILY PO Last administered on 01/18/19 10:25; Admin Dose 30 MG; Start 01/15/19 at 09:00 Polyethylene Glycol (Miralax) 17 gm DAILY PO Last administered on 01/18/19 09:21; Admin Dose 17 GM; Start 01/17/19 at 14:00 Morphine Sulfate (morphine) 6 mg Q4H PRN PO SEVERE PAIN LEVEL 7-10; Start 01/17/19 at 22:30 Aspirin (Aspirin) 81 mg DAILY PO Last administered on 01/18/19at 09:23; Admin Dose 81 MG; Start 01/18/19 at 09:00 Docusate Sodium (Colace) 100 mg BID PO Last administered on 01/18/19at 09:23; Admin Dose 100 MG; Start 01/18/19 at 09:00 Metoprolol Succinate (Toprol Xl) 50 mg DAILY PO Last administered on 01/18/19at 10:25; Admin Dose 50 MG; Start 01/18/19 at 09:00 Pantoprazole (Protonix Tab) 40 mg DAILY@0600 PO ; Start 01/18/19 at 06:00 Albuterol/ Ipratropium (Duoneb) 3 ml Q6 PRN INH WHEEZING AND SOB; Start 01/18/19 at 04:00 Heparin Sodium (Porcine) (Heparin (1000 Units/ml)) 3,600 unit PER PROTOCOL PRN IV aPTT<47; Start 01/18/19 at 07:30 Heparin Sodium (Porcine) 250 ml @ 7.003 mls/ hr PER PROTOCOL IV Last administered on 01/18/19at 16:17; Admin Dose 6 MLS/HR; Start 01/18/19 at 07:30 Atorvastatin Calcium (Lipitor) 80 mg HS PO ; Start 01/18/19 at 21:00 SEBASTIAN GRAHAM MD Jan 18, 2019 17:18
[2019-01-18] MEDS: ATORVASTATIN 80 MG TAB PO SCH (20:51)
[2019-01-18] MEDS: LORAZEPAM 2 MG INJ IV PRN (21:28)
[2019-01-19] VITALS (15 sets, daily range): BP systolic 92–120; BP diastolic 53–70; PULSE 50–70; RESP 14–21
[2019-01-19] MEDS: LORAZEPAM 2 MG INJ IV PRN ×2 (03:28→09:56)
[2019-01-19] MEDS: PANTOPRAZOLE (EC) 40 MG TAB PO SCH (05:10)
--- NOTE | 2019-01-19 07:09 | RADRPT ---
Echocardiogram Report Patient Name: Francy KEENANnt ID: [id number] : 1955 (63y 1m)Study Date: 01/18/2019 1:37:18 PM Gender: FAccession #: [id number] Tech: Dong Viveros [facility] Location: [address] Ref.Physician: GAVIOTA DEL TORO Height(Cm): BSA: Weight(Kg): Quality: AdequateAccount #: Procedures: Echocardiographic Report: Transthoracic echocardiogram with complete 2D, M-Mode, and doppler examination. Indications: Acute NH. Measurements: 2D/M Mode Doppler Measurement Value Normal Range Measurement Value Normal Range LVIDd 2D 2.4 [ 3.8 - 5.2 ] cm AV Peak Deshaun 1.4 [ 100.0 - 170.0 ] cm/sec LVIDs 2D 1.9 [ 2.2 - 3.5 ] cm AV Peak PG 7.0 [ 2.0 - 9.0 ] mmHg LVPWd 2D 1.6 [ 0.6 - 0.9 ] cm LVOT Peak Deshuan 0.7 [ 70.0 - 110.0 ] cm/sec IVSd 2D 1.6 [ 0.6 - 0.9 ] cm LVOT Peak PG 2.0 [ 2.0 - 6.0 ] mmHg AoR Diam 2D 2.3 [ 2.3 - 3.1 ] cm MV E Peak Deshaun 0.8 [ 60.0 - 130.0 ] cm/sec EDV 2D 21.0 [ 46.0 - 106.0 ] ml MV A Peak Deshaun 0.7 [ 100.0 - 120.0 ] cm/sec ESV 2D 10.4 [ 14.0 - 42.0 ] ml MV E/A 1.1 [ 0.8 - 1.5 ] ratio EF 2D 50.5 [ 54.0 - 74.0 ] percent MV Decel Time 187 [ 104 - 258 ] msec LA Dimen 2D 3.5 [ 2.7 - 3.8 ] cm Lat E` Deshaun 0.1 [ 10.0 - 15.0 ] cm/sec Lateral E/E` 13.7 [ 1.0 - 2.0 ] ratio Med E` Deshaun 0.1 cm/sec MV E/A 1.1 [ 0.8 - 1.5 ] ratio TAPSE 1.3 [ 1.7 - 3.0 ] cm TR Peak Deshaun 2.5 [ 100.0 - 280.0 ] cm/sec TR Peak PG 24.0 mmHg RVSP 27.0 [ 10.0 - 36.0 ] mmHg Findings: Left Ventricle: Normal left ventricular systolic function. Normal left ventricular cavity size. Severe concentric left ventricular hypertrophy. Ejection fraction is visually estimated at 55 %. Tissue Doppler/Mitral Doppler indices are consistent with pseudonormalization with mildly elevated left atrial pressure (Stage II diastolic dysfunction). Right Ventricle: Normal right ventricular size. Mild right ventricular systolic dysfunction. Left Atrium: The left atrium is normal in size. Right Atrium: The right atrium is normal in size. Mitral Valve: Mitral valve leaflets appear mildly thickened. Mild mitral annular calcification. Trace mitral regurgitation. Aortic Valve: No significant aortic stenosis or insufficiency. Aortic cusps appear mildly calcified. Tricuspid Valve: Normal appearance of the tricuspid valve. Estimated peak PA systolic pressure 27 mmHg. There is mild tricuspid regurgitation. Pulmonic Valve: Pulmonic valve not well visualized. Pericardium: Trivial pericardial effusion. Bilateral pleural effusion seen. Aorta: Normal aortic root. IVC: Normal size and normal respiratory collapse consistent with normal right atrial pressure. Conclusions: Severe concentric left ventricular hypertrophy with normal systolic function. No obvious wall motion abnormalities. Restrictive diastolic function. Calcification of mitral and aortic leaflets. Mild tricuspid regurgitation with normal measured pulmonary pressures. Bilateral pleural effusions. Electronically Signed By: Gaviota Del Toro 2019-01-19 07:09:03 [facility]
[2019-01-19] MEDS: METOPROLOL (XL) 50 MG TAB PO SCH (09:00)
[2019-01-19] MEDS: DOCUSATE SODIUM 100 MG CAP PO SCH ×2 (09:05→21:05)
[2019-01-19] MEDS: POLYETHYLENE GLYCOL 17 GM PACKET PO SCH (09:06)
[2019-01-19] MEDS: CALCIUM ACETATE 667 MG CAP PO SCH ×3 (09:08→17:30)
[2019-01-19] MEDS: ASPIRIN 81 MG TAB PO SCH (09:08)
[2019-01-19] MEDS: NIFEdipine (XL) 30 MG TAB PO SCH (09:10)
[2019-01-19] MEDS: ISOSORBIDE MONONITRATE(SR)60 MG TAB PO SCH (09:11)
--- NOTE | 2019-01-19 14:46 | PN ---
Date/Time of Note Date/Time of Note DATE: 01/19/19 TIME: 14:42 Assessment/Plan VTE Prophylaxis Risk score (from Nsg)>0 risk: 2 SCD applied (from Nsg): Yes Pharmacological prophylaxis: heparin Lines/Catheters IV Catheter Type (from Nrsg): Saline Lock Urinary Cath still in place: Yes Reason Cath still needed: other (indicate) (UOP monitoring) Assessment/Plan Assessment/Plan 63-year-old homeless woman with prior history of chronic kidney disease, questionable chronic obstructive pulmonary disease, congestive heart failure, hypertension, bilateral renal artery stenosis, hepatitis C and anemia who comes in with shortness of breath with signs of congestive heart failure exacerbation and also acute on chronic renal insufficiency. #NSTEMI - Had elevated trops, TWIs in hospital early AM on 01/18. - Due to patient's history of poor compliance, will treat medically with heparin gtt (at least 48 hours). Also patient refused cardiac cath worried it will make her dialysis dependent. - Possibility of in-hospital cocaine use, Utox positive even 6 days after admis re. # Pleural effusion - Had pleural effusion with thoracentesis in 10/2018. Was transudative by protein, no serum LDH to compare it to. Culture and pathology negative. Now CXR shows loculation of that effusion. - CT chest confirms large R effusion has recurred. - However she is breathing comfortably on nasal cannula. - Due to reassuring respiratory status will hold off on thoracentesis until off heparin gtt. # Pulmonary edema - CXR shows possible "diffuse infiltrates". But no fever, WBC to suggest infection. Will hold off on antibiotics. - Currently holding IV diuresis. -Follow-up renal recommendations # Acute on chronic kidney disease - Per renal team, on last admission in 10/2018 already creatinine was in 3.59 and then had peaked up to 4.2 and on discharge was 2.76; however on this admission was 3.39. After diuresis higher at 5.1, trending up the last couple of days-could be because of cardiorenal disease versus worsening of renal artery stenosis (Of note patient had a renal ultrasound with arterial Doppler performed November 08, 2018: It showed ultrasound evidence of severe bilateral renal artery stenoses but repeat shows no stenosis). The patient has history of hepatitis C, could be possibility of some glomerulonephritis as well. Patient has not been on Lasix actually secondary to elevated creatinine levels. -Continue phosphate binder, monitor BUN and creatinine levels very carefully -Monitor ins and outs -Follow-up renal recommendations # History of hypertension. She presented at the outside hospital with mild hypertensive urgency, but this has resolved now. - Continue BP meds. Currently borderline hypotensive. #Homelessness - Social work consult DVT: heparin gtt GI: PPI Result Diagram: 01/19/19 0601 01/19/19 0601 Results 24hrs Laboratory Tests Test 01/18/19 15:10 01/18/19 22:33 01/19/19 06:01 01/19/19 11:01 Activated 90.0 *H 56.9 H 60.[address] Time White Blood Count 9.7 # Red Blood Count 3.78 L Hemoglobin 9.0 L Hematocrit 30.2 L Mean Corpuscular 79.9 L Volume Mean Corpuscular 23.8 L Hemoglobin Mean Corpuscular 29.8 L Hemoglobin Concent Red Cell 19.8 H Distribution Width Platelet Count 211 # Mean Platelet 10.4 Volume Immature 0.700 H Granulocytes % Neutrophils % 81.3 H Lymphocytes % 8.5 L Monocytes % 8.9 Eosinophils % 0.3 Basophils % 0.3 Nucleated Red 0.0 Blood Cells % Immature 0.070 H Granulocytes # Neutrophils # 7.9 H Lymphocytes # 0.8 Monocytes # 0.9 Eosinophils # 0.0 Basophils # 0.0 Nucleated Red 0.0 Blood Cells # Sodium Level 138 Potassium Level 4.9 Chloride Level 109 Carbon Dioxide 21 Level Anion Gap 8 Blood Urea 74 H Nitrogen Creatinine 4.81 H Est Glomerular 11 L Filtrat Rate mL/min Glucose Level 108 Calcium Level 8.7 Troponin I 47.100 *H Lab Scanned Report REFERENCE LAB Test 01/19/19 11:54 Activated 57.[address] Time Subjective 24 Hr Interval Summary Free Text/Dictation No acute overnight events. Required Ativan this morning for agitation. Exam/Review of Systems Exam Vitals Vital Signs Date Temp Pulse Resp B/P (MAP) Pulse Ox O2 O2 Flow FiO2 Time Delivery Rate 01/19/19 2.0 13:35 01/19/19 60 12:13 01/19/19 Nasal 12:00 Cannula 01/19/19 92/56 (68) 11:48 01/19/19 18 98 11:38 01/19/19 98.7 11:10 01/17/19 21 23:45 Intake and Output 01/18/19 01/18/19 01/19/19 1515:00 23:00 07:00 IntakeIntake Total 200 ml 120 ml OutputOutput Total 300 ml 350 ml BalanceBalance -100 ml -230 ml Exam GENERAL: lying in bed, no acute distress, somnolent but arousable. HEENT: Pupils are equal, round, reactive to light. Extraocular muscles are intact. NECK: Supple. No thyromegaly. LUNGS: Absent R breath sounds. Normal L lung sounds. CARDIOVASCULAR: S1, S2 heard. No rubs or gallops. ABDOMEN: Soft, nontender, nondistended. Normal bowel sounds. No rebound or guarding. MUSCULOSKELETAL: No LE edema. Results Results 24hrs Laboratory Tests Test 01/18/19 15:10 01/18/19 22:33 01/19/19 06:01 01/19/19 11:01 Activated 90.0 *H 56.9 H 60.[address] Time White Blood Count 9.7 # Red Blood Count 3.78 L Hemoglobin 9.0 L Hematocrit 30.2 L Mean Corpuscular 79.9 L Volume Mean Corpuscular 23.8 L Hemoglobin Mean Corpuscular 29.8 L Hemoglobin Concent Red Cell 19.8 H Distribution Width Platelet Count 211 # Mean Platelet 10.4 Volume Immature 0.700 H Granulocytes % Neutrophils % 81.3 H Lymphocytes % 8.5 L Monocytes % 8.9 Eosinophils % 0.3 Basophils % 0.3 Nucleated Red 0.0 Blood Cells % Immature 0.070 H Granulocytes # Neutrophils # 7.9 H Lymphocytes # 0.8 Monocytes # 0.9 Eosinophils # 0.0 Basophils # 0.0 Nucleated Red 0.0 Blood Cells # Sodium Level 138 Potassium Level 4.9 Chloride Level 109 Carbon Dioxide 21 Level Anion Gap 8 Blood Urea 74 H Nitrogen Creatinine 4.81 H Est Glomerular 11 L Filtrat Rate mL/min Glucose Level 108 Calcium Level 8.7 Troponin I 47.100 *H Lab Scanned Report REFERENCE LAB Test 01/19/19 11:54 Activated 57.[address] Time Medications Medication Current Medications IV Flush (NS 3 ml) 3 ml PER PROTOCOL IV ; Start 01/12/19 at 13:30 Ondansetron HCl (Zofran Inj) 4 mg Q6H PRN IV NAUSEA/VOMITING Last administered on 01/18/19 12:32; Admin Dose 4 MG; Start 01/12/19 at 13:30 Acetaminophen (Tylenol Tab) 650 mg Q6H PRN PO .PAIN 1-3 OR TEMP; Start 01/12/19 at 13:30 Acetaminophen/ Hydrocodone Bitart ([place] (5/325)) 1 tab Q6H PRN PO .MOD PAIN 4- 6 Last administered on 01/18/19 18:20; Admin Dose 1 TAB; Start 01/12/19 at 13:30 Docusate Sodium (Colace) 100 mg Q12H PRN PO .CONSTIPATION; Start 01/12/19 at 13:30 Magnesium Hydroxide (Milk Of Mag) 30 ml DAILY PRN PO .CONSTIPATION; Start 01/12/19 at 13:30 Lorazepam (Ativan) 0.5 mg Q6H PRN IV ANXIETY Last administered on 01/19/19 09:56; Admin Dose 0.5 MG; Start 01/12/19 at 13:30 Hydralazine HCl (Apresoline) 10 mg Q6H PRN IV ELEVATED BLOOD PRESSURE; Start 01/12/19 at 13:30 Nitroglycerin (Nitroglycerin (Sl Tab) 0.4 Mg) 1 tab Q5M PRN SL ANGINA Last administered on 01/18/19 08:00; Admin Dose 1 TAB; Start 01/12/19 at 13:30 Carvedilol (Coreg) 25 mg BID PO Last administered on 01/18/19 21:31; Admin Dose 25 MG; Start 01/12/19 at 21:00 Isosorbide Mononitrate (Imdur) 60 mg DAILY PO Last administered on 01/19/19 09:11; Admin Dose 60 MG; Start 01/12/19 at 18:30 Calcium Acetate (Phoslo) 667 mg WITH MEALS PO Last administered on 01/19/19 09:08; Admin Dose 667 MG; Start 01/13/19 at 17:55 Nifedipine (Procardia Xl) 30 mg DAILY PO Last administered on 01/19/19 09:10; Admin Dose 30 MG; Start 01/15/19 at 09:00 Polyethylene Glycol (Miralax) 17 gm DAILY PO Last administered on 2/21/19at 09:06; Admin Dose 17 GM; Start 01/17/19 at 14:00 Morphine Sulfate (morphine) 6 mg Q4H PRN PO SEVERE PAIN LEVEL 7-10; Start 01/17/19 at 22:30 Aspirin (Aspirin) 81 mg DAILY PO Last administered on 01/19/19at 09:08; Admin Dose 81 MG; Start 01/18/19 at 09:00 Docusate Sodium (Colace) 100 mg BID PO Last administered on 01/19/19at 09:05; Admin Dose 100 MG; Start 01/18/19 at 09:00 Pantoprazole (Protonix Tab) 40 mg DAILY@0600 PO Last administered on 01/19/19at 05:10; Admin Dose 40 MG; Start 01/18/19 at 06:00 Albuterol/ Ipratropium (Duoneb) 3 ml Q6 PRN INH WHEEZING AND SOB; Start 01/18/19 at 04:00 Heparin Sodium (Porcine) (Heparin (1000 Units/ml)) 3,600 unit PER PROTOCOL PRN IV aPTT<47; Start 01/18/19 at 07:30 Heparin Sodium (Porcine) 250 ml @ 7.003 mls/ hr PER PROTOCOL IV Last administered on 01/18/19at 23:16; Admin Dose 7 MLS/HR; Start 01/18/19 at 07:30 Atorvastatin Calcium (Lipitor) 80 mg HS PO Last administered on 01/18/19at 20:51; Admin Dose 80 MG; Start 01/18/19 at 21:00 SEBASTIAN GRAHAM MD Jan 19, 2019 14:46
[2019-01-19] MEDS ORDERED: FUROSEMIDE 40 MG INJ IV ONE (15:00)
--- NOTE | 2019-01-19 15:01 | CONS ---
Assessment/Plan Assessment/Plan Assessment/Plan (Daily) 1 acute on chronic renal disease. CKD IV On last admission in 10/2018, already creatinine was in 3.59 and then had peaked up to 4.2 and on discharge was 2.76; however on this admission was 3.39. It could be very well because of cardiorenal disease on CKD vs ATN The patient has history of hepatitis C, could be possibility of some glomerulonephritis as well.however UA no active sediment on admission Pt has been non compliant with meds Cr comtinue to uptrend likley ATN, Renal doppler was neg for KYALA Pt had BP DROPS from 180>90s now further hypotensive first UA neg for any active sediment now UA shows some RBC Cr had been downtrended yesterday as it had peaked to 5.28 > 4.8 , patient had CKD 4 and now has insults likely secondary to cardiorenal/ATN worsened with hypotension Chest xRay worseining rt sided effusion 3. History of proteinuria. 4. Hypertension, controlled 5. History of hepatitis C. 6 Fe def anemia 7 NSTEMI with EKG changes and +Trop, troponins continue to rise 8 right-sided pleural effusion 9 altered mental status questionable metabolic encephalopathy/drugs Plan - Repeat Chest Ray with worse rt loculated effusion consider thoracentesis/US , spoke to primary we will do after the heparin finish drip is finish -IV Lasix if blood pressure tolerates, oxygen requirement stable on 4 L -Troponin continue to rise -? Pul consult -Spoke to the family at bedside on 01/18 and also the patient in case patient since patient needs coronary angiography patient is at very high risk of contrast nephropathy will monitor creatinine /Electrolytes and UOP 24-48 hours after as she already has CKD stage IV and and will monitor for 24-48 hours after angiography to see for hemodialysis. Family and the patient had been refusing hemodialysis -Consider transfer to higher level of care to ICU avoid blood pressure drops -Would hold off narcotics benzos -avoid bp drops To increase renal perfusion - renally dose all meds - avoid nephrotoxins Consultation Date/Type/Reason Admit Date/Time Jan 12, 2019 at 12:23 Initial Consult Date Requesting Provider: KATHY ZARAGOZA MD Date/Time of Note DATE: 01/19/19 TIME: 14:56 24 HR Interval Summary Free Text/Dictation Patient is very lethargic today? Meds Exam/Review of Systems Exam Vitals Vital Signs Date Temp Pulse Resp B/P (MAP) Pulse Ox O2 O2 Flow FiO2 Time Delivery Rate 01/19/19 2.0 13:35 01/19/19 60 12:13 01/19/19 Nasal 12:00 Cannula 01/19/19 92/56 (68) 11:48 01/19/19 18 98 11:38 01/19/19 98.7 11:10 01/17/19 21 23:45 Intake and Output 01/18/19 01/18/19 01/19/19 1515:00 23:00 07:00 IntakeIntake Total 200 ml 120 ml OutputOutput Total 300 ml 350 ml BalanceBalance -100 ml -230 ml Exam Exam She is lethargic on 4 L nasal cannula Respiratory: decreased breath sounds on rt Cardiovascular: regular rate and rhythm Gastrointestinal: soft, bowel sounds (+) Extremities: No edema Results Result Diagram: 01/19/19 0601 01/19/19 0601 Results 24hrs Laboratory Tests Test 01/18/19 15:10 01/18/19 22:33 01/19/19 06:01 01/19/19 11:01 Activated 90.0 *H 56.9 H 60.[address] Time White Blood Count 9.7 # Red Blood Count 3.78 L Hemoglobin 9.0 L Hematocrit 30.2 L Mean Corpuscular 79.9 L Volume Mean Corpuscular 23.8 L Hemoglobin Mean Corpuscular 29.8 L Hemoglobin Concent Red Cell 19.8 H Distribution Width Platelet Count 211 # Mean Platelet 10.4 Volume Immature 0.700 H Granulocytes % Neutrophils % 81.3 H Lymphocytes % 8.5 L Monocytes % 8.9 Eosinophils % 0.3 Basophils % 0.3 Nucleated Red 0.0 Blood Cells % Immature 0.070 H Granulocytes # Neutrophils # 7.9 H Lymphocytes # 0.8 Monocytes # 0.9 Eosinophils # 0.0 Basophils # 0.0 Nucleated Red 0.0 Blood Cells # Sodium Level 138 Potassium Level 4.9 Chloride Level 109 Carbon Dioxide 21 Level Anion Gap 8 Blood Urea 74 H Nitrogen Creatinine 4.81 H Est Glomerular 11 L Filtrat Rate mL/min Glucose Level 108 Calcium Level 8.7 Troponin I 47.100 *H Lab Scanned Report REFERENCE LAB Test 01/19/19 11:54 Activated 57.[address] Time Medications Medication Current Medications IV Flush (NS 3 ml) 3 ml PER PROTOCOL IV ; Start 01/12/19 at 13:30 Ondansetron HCl (Zofran Inj) 4 mg Q6H PRN IV NAUSEA/VOMITING Last administered on 01/18/19at 12:32; Admin Dose 4 MG; Start 01/12/19 at 13:30 Acetaminophen (Tylenol Tab) 650 mg Q6H PRN PO .PAIN 1-3 OR TEMP; Start 01/12/19 at 13:30 Acetaminophen/ Hydrocodone Bitart ([place] (5/325)) 1 tab Q6H PRN PO .MOD PAIN 4- 6 Last administered on 01/18/19 18:20; Admin Dose 1 TAB; Start 01/12/19 at 13:30 Docusate Sodium (Colace) 100 mg Q12H PRN PO .CONSTIPATION; Start 01/12/19 at 13:30 Magnesium Hydroxide (Milk Of Mag) 30 ml DAILY PRN PO .CONSTIPATION; Start 01/12/19 at 13:30 Lorazepam (Ativan) 0.5 mg Q6H PRN IV ANXIETY Last administered on 01/19/19 09:56; Admin Dose 0.5 MG; Start 01/12/19 at 13:30 Hydralazine HCl (Apresoline) 10 mg Q6H PRN IV ELEVATED BLOOD PRESSURE; Start 01/12/19 at 13:30 Nitroglycerin (Nitroglycerin (Sl Tab) 0.4 Mg) 1 tab Q5M PRN SL ANGINA Last administered on 01/18/19 08:00; Admin Dose 1 TAB; Start 01/12/19 at 13:30 Carvedilol (Coreg) 25 mg BID PO Last administered on 01/18/19 21:31; Admin Dose 25 MG; Start 01/12/19 at 21:00 Isosorbide Mononitrate (Imdur) 60 mg DAILY PO Last administered on 01/19/19 09:11; Admin Dose 60 MG; Start 01/12/19 at 18:30 Calcium Acetate (Phoslo) 667 mg WITH MEALS PO Last administered on 01/19/19 09:08; Admin Dose 667 MG; Start 01/13/19 at 17:55 Nifedipine (Procardia Xl) 30 mg DAILY PO Last administered on 01/19/19 09:10; Admin Dose 30 MG; Start 01/15/19 at 09:00; Status Hold Polyethylene Glycol (Miralax) 17 gm DAILY PO Last administered on 01/19/19 09:06; Admin Dose 17 GM; Start 01/17/19 at 14:00 Morphine Sulfate (morphine) 6 mg Q4H PRN PO SEVERE PAIN LEVEL 7-10; Start 01/17/19 at 22:30 Aspirin (Aspirin) 81 mg DAILY PO Last administered on 01/19/19 09:08; Admin Dose 81 MG; Start 01/18/19 at 09:00 Docusate Sodium (Colace) 100 mg BID PO Last administered on 01/19/19 09:05; Admin Dose 100 MG; Start 01/18/19 at 09:00 Pantoprazole (Protonix Tab) 40 mg DAILY@0600 PO Last administered on 01/19/19 05:10; Admin Dose 40 MG; Start 01/18/19 at 06:00 Albuterol/ Ipratropium (Duoneb) 3 ml Q6 PRN INH WHEEZING AND SOB; Start 01/18/19 at 04:00 Heparin Sodium (Porcine) (Heparin (1000 Units/ml)) 3,600 unit PER PROTOCOL PRN IV aPTT<47; Start 01/18/19 at 07:30 Heparin Sodium (Porcine) 250 ml @ 7.003 mls/ hr PER PROTOCOL IV Last administered on 01/18/19at 23:16; Admin Dose 7 MLS/HR; Start 01/18/19 at 07:30 Atorvastatin Calcium (Lipitor) 80 mg HS PO Last administered on 01/18/19at 20:51; Admin Dose 80 MG; Start 01/18/19 at 21:00 Furosemide (Lasix) 40 mg ONCE ONCE IV ; Start 01/19/19 at 15:00; Stop 01/19/19 at 15:01; Status JESSICA CHAO MD Jan 19, 2019 15:01
--- NOTE | 2019-01-19 18:53 | CONS ---
Assessment/Plan Cardiology Heart Failure Type: Acute on Chronic Heart Failure Type: Diastolic Assessment/Plan Hospital Course (Demo Recall) 63 year-old with CKD stage 4 and hypertension and diastolic heart failure, admitted with dyspnea and acute renal failure, sustained a STEMI yesterday. Etiology possibly cocaine, as utox positive for cocaine. Patient declined coronary angiography and is being treated medically. Impression: NSTEMI Acute on chronic diastolic hf, preserved LV function on repeat echo acute on chronic renal insufficiency Cocaine use Enlarging right pleural effusion Recommendations: She remains hemodynamically stable Medical therapy -- patient declined coronary angiography due to desire to avoid dialysis. I left a message for Svetlana to urgently call me back but unfortu nately she did not call. Continue aspirin, will add clopidogrel Continue statin Carvedilol is ordered, but it is not clear to me if she has been receiving this, as [employer] is malfunctioning at present. At the very least, the last dose was held due to bradycardia. If heart rate is in the low 60s at baseline then no need for beta blockade Clonidine patch dc'ed given relatively low bp. Would give a total of 48 hours of heparin, can stop tomorrow morning, to facilitate patient undergoing a thoracentesis Consultation Date/Type/Reason Admit Date/Time Jan 12, 2019 at 12:23 Initial Consult Date 01/18/19 Type of Consult Cardiology Requesting Provider: KATHY ZARAGOZA MD Date/Time of Note DATE: 01/19/19 TIME: 18:46 24 HR Interval Summary Free Text/Dictation Patient denies further chest pain, no abdominal pain, no dyspnea, has sharp pain in her right arm at the site of an IV. She is cold. Exam/Review of Systems Vital Signs Vitals Vital Signs Date Temp Pulse Resp B/P (MAP) Pulse Ox O2 O2 Flow FiO2 Time Delivery Rate 01/19/19 64 16:01 01/19/19 98.0 20 98/69 (79) 98 Nasal 15:51 Cannula 01/19/19 2.0 13:35 01/17/19 21 23:45 Intake and Output 01/18/19 01/18/19 01/19/19 1515:00 23:00 07:00 IntakeIntake Total 200 ml 120 ml OutputOutput Total 300 ml 350 ml BalanceBalance -100 ml -230 ml Exam Constitutional: alert; No distress Psych: nl mood/affect Head: normocephalic, atraumatic Eyes: nl conjunctiva, nl sclera ENMT: nl external ears & nose Neck: No jvd, No bruits Respiratory: normal air movement Cardiovascular: regular rate and rhythm; No murmurs/extra sounds Gastrointestinal: soft, non-tender Musculoskeletal: nl extremities to inspection Extremities: No edema Neurological: nl speech Skin: nl turgor Labs Result Diagram: 01/19/19 0601 01/19/19 0601 Results 24hrs Laboratory Tests Test 01/18/19 22:33 01/19/19 06:01 01/19/19 11:01 01/19/19 11:54 Activated 56.9 H 60.7 H 57.[address] Time White Blood Count 9.7 # Red Blood Count 3.78 L Hemoglobin 9.0 L Hematocrit 30.2 L Mean Corpuscular 79.9 L Volume Mean Corpuscular 23.8 L Hemoglobin Mean Corpuscular 29.8 L Hemoglobin Concent Red Cell 19.8 H Distribution Width Platelet Count 211 # Mean Platelet 10.4 Volume Immature 0.700 H Granulocytes % Neutrophils % 81.3 H Lymphocytes % 8.5 L Monocytes % 8.9 Eosinophils % 0.3 Basophils % 0.3 Nucleated Red 0.0 Blood Cells % Immature 0.070 H Granulocytes # Neutrophils # 7.9 H Lymphocytes # 0.8 Monocytes # 0.9 Eosinophils # 0.0 Basophils # 0.0 Nucleated Red 0.0 Blood Cells # Sodium Level 138 Potassium Level 4.9 Chloride Level 109 Carbon Dioxide 21 Level Anion Gap 8 Blood Urea 74 H Nitrogen Creatinine 4.81 H Est Glomerular 11 L Filtrat Rate mL/min Glucose Level 108 Calcium Level 8.7 Troponin I 47.100 *H Lab Scanned Report REFERENCE LAB Medications Medications Current Medications IV Flush (NS 3 ml) 3 ml PER PROTOCOL IV ; Start 01/12/19 at 13:30 Ondansetron HCl (Zofran Inj) 4 mg Q6H PRN IV NAUSEA/VOMITING Last administered on 01/18/19at 12:32; Admin Dose 4 MG; Start 01/12/19 at 13:30 Acetaminophen (Tylenol Tab) 650 mg Q6H PRN PO .PAIN 1-3 OR TEMP; Start 01/12/19 at 13:30 Docusate Sodium (Colace) 100 mg Q12H PRN PO .CONSTIPATION; Start 01/12/19 at 13:30 Magnesium Hydroxide (Milk Of Mag) 30 ml DAILY PRN PO .CONSTIPATION; Start 01/12/19 at 13:30 Hydralazine HCl (Apresoline) 10 mg Q6H PRN IV ELEVATED BLOOD PRESSURE; Start 01/12/19 at 13:30 Nitroglycerin (Nitroglycerin (Sl Tab) 0.4 Mg) 1 tab Q5M PRN SL ANGINA Last administered on 01/18/19 08:00; Admin Dose 1 TAB; Start 01/12/19 at 13:30 Carvedilol (Coreg) 25 mg BID PO Last administered on 01/18/19 21:31; Admin Dose 25 MG; Start 01/12/19 at 21:00 Isosorbide Mononitrate (Imdur) 60 mg DAILY PO Last administered on 01/19/19 09:11; Admin Dose 60 MG; Start 01/12/19 at 18:30 Calcium Acetate (Phoslo) 667 mg WITH MEALS PO Last administered on 01/19/19 17:30; Admin Dose 667 MG; Start 01/13/19 at 17:55 Nifedipine (Procardia Xl) 30 mg DAILY PO Last administered on 01/19/19 09:10; Admin Dose 30 MG; Start 01/15/19 at 09:00; Status Hold Polyethylene Glycol (Miralax) 17 gm DAILY PO Last administered on 01/19/19 09:06; Admin Dose 17 GM; Start 01/17/19 at 14:00 Morphine Sulfate (morphine) 6 mg Q4H PRN PO SEVERE PAIN LEVEL 7-10; Start 01/17/19 at 22:30 Aspirin (Aspirin) 81 mg DAILY PO Last administered on 01/19/19 09:08; Admin Dose 81 MG; Start 01/18/19 at 09:00 Docusate Sodium (Colace) 100 mg BID PO Last administered on 01/19/19 09:05; Admin Dose 100 MG; Start 01/18/19 at 09:00 Pantoprazole (Protonix Tab) 40 mg DAILY@0600 PO Last administered on 01/19/19 05:10; Admin Dose 40 MG; Start 01/18/19 at 06:00 Albuterol/ Ipratropium (Duoneb) 3 ml Q6 PRN INH WHEEZING AND SOB; Start 01/18/19 at 04:00 Heparin Sodium (Porcine) (Heparin (1000 Units/ml)) 3,600 unit PER PROTOCOL PRN IV aPTT<47; Start 01/18/19 at 07:30 Heparin Sodium (Porcine) 250 ml @ 7.003 mls/ hr PER PROTOCOL IV Last administered on 01/18/19at 23:16; Admin Dose 7 MLS/HR; Start 01/18/19 at 07:30 Atorvastatin Calcium (Lipitor) 80 mg HS PO Last administered on 01/18/19at 20:51; Admin Dose 80 MG; Start 01/18/19 at 21:00 EBER HARTLEY Jan 19, 2019 18:53
[2019-01-19] MEDS: HEPARIN 25000 UNITS/250 ML 250 ML IV SCH ×2 (19:01→21:03)
[2019-01-19] MEDS: ATORVASTATIN 80 MG TAB PO SCH (21:05)
[2019-01-19] MEDS: CLOPIDOGREL 75 MG TAB PO SCH (21:05)
[2019-01-20] VITALS (13 sets, daily range): BP systolic 99–148; BP diastolic 60–86; PULSE 63–70; RESP 17–20
[2019-01-20] MEDS: LORAZEPAM 2 MG INJ IV PRN ×3 (00:13→22:45)
[2019-01-20] MEDS: HEPARIN 25000 UNITS/250 ML 250 ML IV SCH (04:27)
[2019-01-20] MEDS: PANTOPRAZOLE (EC) 40 MG TAB PO SCH (06:28)
[2019-01-20] MEDS: CLOPIDOGREL 75 MG TAB PO SCH (08:20)
[2019-01-20] MEDS: ASPIRIN 81 MG TAB PO SCH (08:20)
[2019-01-20] MEDS: CALCIUM ACETATE 667 MG CAP PO SCH ×3 (08:20→17:51)
[2019-01-20] MEDS: DOCUSATE SODIUM 100 MG CAP PO SCH ×2 (08:20→21:00)
[2019-01-20] MEDS: POLYETHYLENE GLYCOL 17 GM PACKET PO SCH (08:20)
--- NOTE | 2019-01-20 08:59 | CONS ---
Assessment/Plan Cardiology Heart Failure Type: Acute on Chronic Heart Failure Type: Diastolic Assessment/Plan Hospital Course (Demo Recall) 63 year-old with CKD stage 4 and hypertension and diastolic heart failure, admitted with dyspnea and acute renal failure, sustained a STEMI on AM. Etiology possibly cocaine, as utox positive for cocaine. Patient declined coronary angiography and is being treated medically. Impression: NSTEMI Acute on chronic diastolic hf, preserved LV function on repeat echo acute on chronic renal insufficiency Cocaine use Enlarging right pleural effusion Recommendations: She remains hemodynamically stable Medical therapy -- patient declined coronary angiography due to desire to avoid dialysis. Will discuss further with Aston, significant other, when he is able to call me later today. Continue aspirin, clopidogrel, atorvastatin, carvedilol Would give a total of 48 hours of heparin, can stop this am to facilitate thoracentesis or any needed procedures. Consultation Date/Type/Reason Admit Date/Time Jan 12, 2019 at 12:23 Initial Consult Date 01/18/19 Type of Consult Cardiology Requesting Provider: KATHY ZARAGOZA MD Date/Time of Note DATE: 01/20/19 TIME: 08:56 24 HR Interval Summary Free Text/Dictation No events overnight. Poor appetite, but no chest pain, no dyspnea. Aston (significant other) called while I was in the room; I tried to speak with him but connection was poor and he will call my office later. Exam/Review of Systems Vital Signs Vitals Vital Signs Date Temp Pulse Resp B/P (MAP) Pulse Ox O2 O2 Flow FiO2 Time Delivery Rate 01/20/19 98.0 65 20 99/60 (73) 92 Nasal 07:47 Cannula 01/20/19 2.0 05:09 01/17/19 21 23:45 Intake and Output 01/19/19 01/19/19 01/20/19 1515:00 23:00 07:00 IntakeIntake Total 500 ml 120 ml OutputOutput Total 100 ml 300 ml BalanceBalance 400 ml -180 ml Exam Constitutional: alert, other (moaning) Psych: other (somnolent, moaning) Head: normocephalic Eyes: nl conjunctiva, nl sclera ENMT: nl external ears & nose Neck: No jvd, No bruits Respiratory: clear to auscultation, normal air movement, diminished breath sounds Cardiovascular: regular rate and rhythm; No murmurs/extra sounds Gastrointestinal: soft, non-tender Musculoskeletal: nl extremities to inspection Extremities: No edema Neurological: nl speech Skin: nl turgor Labs Result Diagram: 01/19/1960001/19/19600 Results 24hrs Laboratory Tests Test 01/19/19 11:01 01/19/19 11:54 01/19/19 20:06 01/20/19 03:29 Lab Scanned Report REFERENCE LAB Activated 57.5 H 56.0 H 53.[address] Time Imaging Imaging telemetry shows nsr at 66 bpm Medications Medications Current Medications IV Flush (NS 3 ml) 3 ml PER PROTOCOL IV ; Start 01/12/19 at 13:30 Ondansetron HCl (Zofran Inj) 4 mg Q6H PRN IV NAUSEA/VOMITING Last administered on 01/18/19at 12:32; Admin Dose 4 MG; Start 01/12/19 at 13:30 Acetaminophen (Tylenol Tab) 650 mg Q6H PRN PO .PAIN 1-3 OR TEMP Last administered on 01/19/19at 21:05; Admin Dose 650 MG; Start 01/12/19 at 13:30 Docusate Sodium (Colace) 100 mg Q12H PRN PO .CONSTIPATION; Start 01/12/19 at 13:30 Magnesium Hydroxide (Milk Of Mag) 30 ml DAILY PRN PO .CONSTIPATION; Start at 13:30 Hydralazine HCl (Apresoline) 10 mg Q6H PRN IV ELEVATED BLOOD PRESSURE; Start 01/12/19 at 13:30 Nitroglycerin (Nitroglycerin (Sl Tab) 0.4 Mg) 1 tab Q5M PRN SL ANGINA Last administered on 01/18/19 08:00; Admin Dose 1 TAB; Start 01/12/19 at 13:30 Carvedilol (Coreg) 25 mg BID PO Last administered on 01/20/19 08:21; Admin Dose 25 MG; Start 01/12/19 at 21:00 Calcium Acetate (Phoslo) 667 mg WITH MEALS PO Last administered on 01/20/19 08:20; Admin Dose 667 MG; Start 01/13/19 at 17:55 Polyethylene Glycol (Miralax) 17 gm DAILY PO Last administered on 01/20/19 08:20; Admin Dose 17 GM; Start 01/17/19 at 14:00 Morphine Sulfate (morphine) 6 mg Q4H PRN PO SEVERE PAIN LEVEL 7-10; Start 01/17/19 at 22:30 Aspirin (Aspirin) 81 mg DAILY PO Last administered on 01/20/19 08:20; Admin Dose 81 MG; Start 01/18/19 at 09:00 Docusate Sodium (Colace) 100 mg BID PO Last administered on 01/20/19 08:20; Admin Dose 100 MG; Start 01/18/19 at 09:00 Pantoprazole (Protonix Tab) 40 mg DAILY@0600 PO Last administered on 01/20/19 06:28; Admin Dose 40 MG; Start 01/18/19 at 06:00 Albuterol/ Ipratropium (Duoneb) 3 ml Q6 PRN INH WHEEZING AND SOB; Start 01/18/19 at 04:00 Heparin Sodium (Porcine) (Heparin (1000 Units/ml)) 3,600 unit PER PROTOCOL PRN IV aPTT<47; Start 01/18/19 at 07:30 Heparin Sodium (Porcine) 250 ml @ 7.003 mls/ hr PER PROTOCOL IV Last administered on 01/20/19 04:27; Admin Dose 9 MLS/HR; Start 01/18/19 at 07:30 Atorvastatin Calcium (Lipitor) 80 mg HS PO Last administered on 01/19/19at 21:05; Admin Dose 80 MG; Start 01/18/19 at 21:00 Clopidogrel Bisulfate (plaVIX) 75 mg DAILY PO Last administered on 01/20/19 08:20; Admin Dose 75 MG; Start 01/19/19 at 19:00 Lorazepam (Ativan) 0.5 mg Q6H PRN IV AGITAION Last administered on 01/20/19 00:13; Admin Dose 0.5 MG; Start 01/20/19 at 00:00 EBER HARTLEY Jan 20, 2019 08:59
--- NOTE | 2019-01-20 12:02 | CONS ---
[facility] HCIS Consult Follow-up Patient Name: Rosie Johnson Unit Number: [id number] Date of : 1955 Patient Status: Admitted Inpatient Attending Doctor: Shmuel García MD Edit: JESSICA NOLAN MD on 01/20/19 @ 18:18 seen and examined with [employer] cr continue to rise s/p thoracentesis today lasix prn on 2 l pt refusing HD Assessment/Plan Assessment/Plan Hospital Course (Demo Recall) 1. Questionable acute on chronic renal disease. On last admission in 10/2018, already creatinine was in 3.59 and then had peaked up to 4.2 and on discharge was 2.76; however on this admission was 3.39. It could be very well because of cardiorenal disease versus worsening of renal artery stenosis. US showed :No visualized evidence of renal artery stenosis. Mildly elevated intrarenal artery resistive indices on the right. Finding is nonspecific and could be the sequelae of medical renal disease, prior insult or chronic ischemia. Increased cortical echogenicity in both kidneys suggesting medical renal disease. Simple right renal cyst. . 2. CHF 3. Nephrotic syndrome with proteinuria. 4. Hypertension, controlled in house. No renal artery stenosis. Pt is more likely is not compliant with medications at home, now even borderline 5. History of hepatitis C. 6. Simple right renal cyst. 7. Anemia 8. Recent NSTEMI 9. Cocaine use Assessment/Plan (Daily) -oxygen requirement stable on 2 L -patient had been refusing hemodialysis -Would hold off narcotics benzos -avoid bp drops to increase renal perfusion - renally dose all meds - avoid nephrotoxins Consultation Date/Type/Reason Admit Date/Time Jan 12, 2019 at 12:23 Initial Consult Date 01/12/2019 Type of Consult nephrology Requesting Provider: KATHY ZARAGOZA MD Date/Time of Note DATE: 01/20/19 TIME: 12:00 Exam/Review of Systems Exam Vitals Vital Signs Date Temp Pulse Resp B/P (MAP) Pulse Ox O2 O2 Flow FiO2 Time Delivery Rate 01/20/19 98.0 64 20 117/61 100 Nasal 11:50 (79) Cannula 01/20/19 4.0 09:00 01/17/19 21 23:45 Intake and Output 01/19/19 01/19/19 01/20/19 1414:59 22:59 06:59 IntakeIntake Total 500 ml 120 ml OutputOutput Total 100 ml 300 ml BalanceBalance 400 ml -180 ml Constitutional: alert, oriented (name), frail Eyes: nl conjunctiva Respiratory: diminished breath sounds Cardiovascular: regular rate and rhythm Gastrointestinal: soft Results Result Diagram: 01/20/19 0734 01/20/19 0734 Results 24hrs Laboratory Tests Test 01/19/19 20:06 01/20/19 03:29 01/20/19 07:34 01/20/19 09:54 Activated 56.0 H 53.0 H 23.3 Partial Thromboplast Time White Blood Count 8.0 Red Blood Count 3.73 L Hemoglobin 8.9 L Hematocrit 30.3 L Mean Corpuscular 81.2 L Volume Mean Corpuscular 23.9 L Hemoglobin Mean Corpuscular 29.4 L Hemoglobin Concent Red Cell 20.2 H Distribution Width Platelet Count 188 Mean Platelet Volume 10.1 Immature 0.900 H Granulocytes % Neutrophils % 77.1 H Lymphocytes % 12.2 L Monocytes % 8.7 Eosinophils % 0.7 Basophils % 0.4 Nucleated Red Blood 0.0 Cells % Immature 0.070 H Granulocytes # Neutrophils # 6.2 Lymphocytes # 1.0 Monocytes # 0.7 Eosinophils # 0.1 Basophils # 0.0 Nucleated Red Blood 0.0 Cells # Sodium Level 137 Potassium Level 4.7 Chloride Level 110 Carbon Dioxide Level 20 L Anion Gap 7 Blood Urea Nitrogen 83 H Creatinine 5.35 H Est Glomerular 10 L Filtrat Rate mL/min Glucose Level 92 Calcium Level 8.6 Phosphorus Level 6.2 H Magnesium Level 2.5 Medications Medication Current Medications IV Flush (NS 3 ml) 3 ml PER PROTOCOL IV ; Start 01/12/19 at 13:30 Ondansetron HCl (Zofran Inj) 4 mg Q6H PRN IV NAUSEA/VOMITING Last administered on 01/18/19 12:32; Admin Dose 4 MG; Start 01/12/19 at 13:30 Acetaminophen (Tylenol Tab) 650 mg Q6H PRN PO .PAIN 1-3 OR TEMP Last administered on 01/19/19 21:05; Admin Dose 650 MG; Start 01/12/19 at 13:30 Docusate Sodium (Colace) 100 mg Q12H PRN PO .CONSTIPATION; Start 01/12/19 at 13:30 Magnesium Hydroxide (Milk Of Mag) 30 ml DAILY PRN PO .CONSTIPATION; Start 01/12/19 at 13:30 Hydralazine HCl (Apresoline) 10 mg Q6H PRN IV ELEVATED BLOOD PRESSURE; Start 01/12/19 at 13:30 Nitroglycerin (Nitroglycerin (Sl Tab) 0.4 Mg) 1 tab Q5M PRN SL ANGINA Last administered on 01/18/19 08:00; Admin Dose 1 TAB; Start 01/12/19 at 13:30 Carvedilol (Coreg) 25 mg BID PO Last administered on 01/20/19 08:21; Admin Dose 25 MG; Start 01/12/19 at 21:00 Calcium Acetate (Phoslo) 667 mg WITH MEALS PO Last administered on 01/20/19 08:20; Admin Dose 667 MG; Start 01/13/19 at 17:55 Polyethylene Glycol (Miralax) 17 gm DAILY PO Last administered on 01/20/19 08:20; Admin Dose 17 GM; Start 01/17/19 at 14:00 Morphine Sulfate (morphine) 6 mg Q4H PRN PO SEVERE PAIN LEVEL 7-10; Start 01/17/19 at 22:30 Aspirin (Aspirin) 81 mg DAILY PO Last administered on 01/20/19 08:20; Admin Dose 81 MG; Start 01/18/19 at 09:00 Docusate Sodium (Colace) 100 mg BID PO Last administered on 01/20/19 08:20; Admin Dose 100 MG; Start 01/18/19 at 09:00 Pantoprazole (Protonix Tab) 40 mg DAILY@0600 PO Last administered on 01/20/19 06:28; Admin Dose 40 MG; Start 01/18/19 at 06:00 Albuterol/ Ipratropium (Duoneb) 3 ml Q6 PRN INH WHEEZING AND SOB; Start 01/18/19 at 04:00 Atorvastatin Calcium (Lipitor) 80 mg HS PO Last administered on 01/19/19at 21:05 ; Admin Dose 80 MG; Start 01/18/19 at 21:00 Clopidogrel Bisulfate (plaVIX) 75 mg DAILY PO Last administered on 01/20/19at 08:20; Admin Dose 75 MG; Start 01/19/19 at 19:00 Lorazepam (Ativan) 0.5 mg Q6H PRN IV AGITAION Last administered on 01/20/19at 10:14; Admin Dose 0.5 MG; Start 01/20/19 at 00:00 BRET BORDEN Jan 20, 2019 12:02
--- NOTE | 2019-01-20 15:05 | PN ---
Date/Time of Note Date/Time of Note DATE: 01/20/19 TIME: 15:00 Assessment/Plan VTE Prophylaxis Risk score (from Ns)>0 risk: 2 SCD applied (from Nsg): Yes Pharmacological prophylaxis: NA/contraindicated Pharm contraindication: low risk/ambulating Lines/Catheters IV Catheter Type (from [facility]): Saline Lock Urinary Cath still in place: Yes Reason Cath still needed: other (indicate) (oliguric renal failure) Assessment/Plan Assessment/Plan 63-year-old homeless woman with prior history of chronic kidney disease, questionable chronic obstructive pulmonary disease, congestive heart failure, hypertension, bilateral renal artery stenosis, hepatitis C and anemia who comes in with shortness of breath with signs of congestive heart failure exacerbation and also acute on chronic renal insufficiency. #NSTEMI - Had elevated trops, TWIs in hospital early AM on 01/18. - Due to patient's history of poor compliance, treated medically with heparin gt t x48 hours. Also patient refused cardiac cath worried it will make her dialysis dependent. - Possibility of in-hospital cocaine use, Utox positive even 6 days after admission. # Pleural effusion - Had pleural effusion with thoracentesis in 10/2018. Was transudative by protein, no serum LDH to compare it to. Culture and pathology negative. Now CXR shows loculation of that effusion. - CT chest confirms large R effusion has recurred. - However she is breathing comfortably on nasal cannula. - Now off heparin gtt since this morning. Will pursue US-guided thoracentesis # Pulmonary edema - CXR shows possible "diffuse infiltrates". But no fever, WBC to suggest infection. Will hold off on antibiotics. - Currently holding IV diuresis. -Follow-up renal recommendations # Acute on chronic kidney disease - Per renal team, on last admission in 10/2018 already creatinine was in 3.59 and then had peaked up to 4.2 and on discharge was 2.76; however on this admission was 3.39. After diuresis higher at 5.1, trending up the last couple of days-could be because of cardiorenal disease versus worsening of renal artery stenosis (Of note patient had a renal ultrasound with arterial Doppler performed November 08, 2018: It showed ultrasound evidence of severe bilateral renal artery stenoses but repeat shows no stenosis). The patient has history of hepatitis C, could be possibility of some glomerulonephritis as well. Patient has not been on Lasix actually secondary to elevated creatinine levels. -Continue phosphate binder, monitor BUN and creatinine levels very carefully -Monitor ins and outs -Follow-up renal recommendations # History of hypertension. She presented at the outside hospital with mild hypertensive urgency, but this has resolved now. - Continue BP meds. Currently borderline hypotensive. #Homelessness - Social work consult DVT: heparin gtt GI: PPI Result Diagram: 01/20/19 0734 01/20/19 0734 Subjective 24 Hr Interval Summary Free Text/Dictation The patient apparently was very agitated and required ativan last night and this morning. On exam today she is moaning, unable to articulate her concerns. Still on 2-4L nasal cannula. Exam/Review of Systems Exam Vitals Vital Signs Date Temp Pulse Resp B/P (MAP) Pulse Ox O2 O2 Flow FiO2 Time Delivery Rate 01/20/19 65 12:02 01/20/19 98.0 20 117/61 100 Nasal 11:50 (79) Cannula 01/20/19 4.0 09:00 01/17/19 21 23:45 Intake and Output 01/19/19 01/19/19 01/20/19 1515:00 23:00 07:00 IntakeIntake Total 500 ml 120 ml OutputOutput Total 100 ml 300 ml BalanceBalance 400 ml -180 ml Exam GENERAL: lying in bed, no acute distress, somnolent but arousable. HEENT: Pupils are equal, round, reactive to light. Extraocular muscles are intact. NECK: Supple. No thyromegaly. LUNGS: Absent R breath sounds. Normal L lung sounds. CARDIOVASCULAR: S1, S2 heard. No rubs or gallops. ABDOMEN: Soft, nontender, nondistended. Normal bowel sounds. No rebound or guarding. MUSCULOSKELETAL: No LE edema. Results Results 24hrs Laboratory Tests Test 01/19/19 20:06 01/20/19 03:29 01/20/19 07:34 01/20/19 09:54 Activated 56.0 H 53.0 H 23.3 Partial Thromboplast Time White Blood Count 8.0 Red Blood Count 3.73 L Hemoglobin 8.9 L Hematocrit 30.3 L Mean Corpuscular 81.2 L Volume Mean Corpuscular 23.9 L Hemoglobin Mean Corpuscular 29.4 L Hemoglobin Concent Red Cell 20.2 H Distribution Width Platelet Count 188 Mean Platelet Volume 10.1 Immature 0.900 H Granulocytes % Neutrophils % 77.1 H Lymphocytes % 12.2 L Monocytes % 8.7 Eosinophils % 0.7 Basophils % 0.4 Nucleated Red Blood 0.0 Cells % Immature 0.070 H Granulocytes # Neutrophils # 6.2 Lymphocytes # 1.0 Monocytes # 0.7 Eosinophils # 0.1 Basophils # 0.0 Nucleated Red Blood 0.0 Cells # Sodium Level 137 Potassium Level 4.7 Chloride Level 110 Carbon Dioxide Level 20 L Anion Gap 7 Blood Urea Nitrogen 83 H Creatinine 5.35 H Est Glomerular 10 L Filtrat Rate mL/min Glucose Level 92 Calcium Level 8.6 Phosphorus Level 6.2 H Magnesium Level 2.5 Medications Medication Current Medications IV Flush (NS 3 ml) 3 ml PER PROTOCOL IV ; Start 01/12/19 at 13:30 Ondansetron HCl (Zofran Inj) 4 mg Q6H PRN IV NAUSEA/VOMITING Last administered on 01/18/19at 12:32; Admin Dose 4 MG; Start 01/12/19 at 13:30 Acetaminophen (Tylenol Tab) 650 mg Q6H PRN PO .PAIN 1-3 OR TEMP Last administered on 01/19/19at 21:05; Admin Dose 650 MG; Start 01/12/19 at 13:30 Docusate Sodium (Colace) 100 mg Q12H PRN PO .CONSTIPATION; Start 01/12/19 at 13:30 Magnesium Hydroxide (Milk Of Mag) 30 ml DAILY PRN PO .CONSTIPATION; Start 01/12/19 at 13:30 Hydralazine HCl (Apresoline) 10 mg Q6H PRN IV ELEVATED BLOOD PRESSURE; Start 01/12/19 at 13:30 Nitroglycerin (Nitroglycerin (Sl Tab) 0.4 Mg) 1 tab Q5M PRN SL ANGINA Last administered on 01/18/19at 08:00; Admin Dose 1 TAB; Start 01/12/19 at 13:30 Carvedilol (Coreg) 25 mg BID PO Last administered on 01/20/19at 08:21; Admin Dose 25 MG; Start 01/12/19 at 21:00 Calcium Acetate (Phoslo) 667 mg WITH MEALS PO Last administered on 01/20/19at 08:20; Admin Dose 667 MG; Start 01/13/19 at 17:55 Polyethylene Glycol (Miralax) 17 gm DAILY PO Last administered on 01/20/19 08:20; Admin Dose 17 GM; Start 01/17/19 at 14:00 Morphine Sulfate (morphine) 6 mg Q4H PRN PO SEVERE PAIN LEVEL 7-10; Start 01/17/19 at 22:30 Aspirin (Aspirin) 81 mg DAILY PO Last administered on 01/20/19 08:20; Admin Dose 81 MG; Start 01/18/19 at 09:00 Docusate Sodium (Colace) 100 mg BID PO Last administered on 01/20/19 08:20; Admin Dose 100 MG; Start 01/18/19 at 09:00 Pantoprazole (Protonix Tab) 40 mg DAILY@0600 PO Last administered on 01/20/19 06:28; Admin Dose 40 MG; Start 01/18/19 at 06:00 Albuterol/ Ipratropium (Duoneb) 3 ml Q6 PRN INH WHEEZING AND SOB; Start 01/18/19 at 04:00 Atorvastatin Calcium (Lipitor) 80 mg HS PO Last administered on 01/19/19at 21:05; Admin Dose 80 MG; Start 01/18/19 at 21:00 Clopidogrel Bisulfate (plaVIX) 75 mg DAILY PO Last administered on 01/20/19 08:20; Admin Dose 75 MG; Start 01/19/19 at 19:00 Lorazepam (Ativan) 0.5 mg Q6H PRN IV AGITAION Last administered on 01/20/19 10:14; Admin Dose 0.5 MG; Start 01/20/19 at 00:00 SEBASTIAN GRAHAM MD Jan 20, 2019 15:05
[2019-01-20] MEDS ORDERED: LIDOCAINE 1% (MPF) 5 ML VIAL ONE (17:18)
[2019-01-20] MEDS: ATORVASTATIN 80 MG TAB PO SCH (21:00)
[2019-01-20] MEDS: morphine LIQ (10 MG/5 ML) CUP PO PRN (22:15)
[2019-01-21] VITALS (12 sets, daily range): BP systolic 111–151; BP diastolic 77–93; PULSE 61–72; RESP 17–47
[2019-01-21] MEDS: morphine LIQ (10 MG/5 ML) CUP PO PRN (05:21)
[2019-01-21] MEDS: PANTOPRAZOLE (EC) 40 MG TAB PO SCH (05:21)
--- NOTE | 2019-01-21 08:13 | CONS ---
Assessment/Plan Cardiology Heart Failure Type: Acute on Chronic Heart Failure Type: Diastolic Assessment/Plan Assessment/Plan (Daily) NSTEMI Acute on chronic diastolic hf, preserved LV function on repeat echo acute on chronic renal insufficiency Cocaine use Enlarging right pleural effusion Recommendations: She remains hemodynamically stable Medical therapy -- patient declined coronary angiography due to desire to avoid dialysis. Continue aspirin, clopidogrel, atorvastatin, carvedilol Consultation Date/Type/Reason Admit Date/Time Jan 12, 2019 at 12:23 Initial Consult Date 01/18/19 Type of Consult Cardiology Requesting Provider: KATHY ZARAGOZA MD Date/Time of Note DATE: 01/21/19 TIME: 08:12 24 HR Interval Summary Free Text/Dictation The patient with no complaints overnight Exam/Review of Systems Vital Signs Vitals Vital Signs Date Temp Pulse Resp B/P (MAP) Pulse Ox O2 O2 Flow FiO2 Time Delivery Rate 01/21/19 66 08:03 01/21/19 98.0 18 111/77 95 Nasal 07:16 (88) Cannula 01/21/19 3.0 04:12 01/17/19 21 23:45 Intake and Output 01/20/19 01/20/19 01/21/19 1515:00 23:00 07:00 IntakeIntake Total 550 ml OutputOutput Total 400 ml BalanceBalance 150 ml Labs Result Diagram: 01/21/19 0544 01/21/19 0544 Results 24hrs Laboratory Tests Test 01/20/19 09:54 01/21/19 05:44 Activated Partial Thromboplast Time 23.3 White Blood Count 7.4 Red Blood Count 4.17 L Hemoglobin 10.1 L Hematocrit 33.7 L Mean Corpuscular Volume 80.8 L Mean Corpuscular Hemoglobin 24.2 L Mean Corpuscular Hemoglobin Concent 30.0 L Red Cell Distribution Width 20.8 H Platelet Count 204 Mean Platelet Volume 10.7 H Immature Granulocytes % 0.500 H Neutrophils % 75.6 Lymphocytes % 13.6 L Monocytes % 8.4 Eosinophils % 1.4 Basophils % 0.5 Nucleated Red Blood Cells % 0.0 Immature Granulocytes # 0.040 H Neutrophils # 5.6 Lymphocytes # 1.0 Monocytes # 0.6 Eosinophils # 0.1 Basophils # 0.0 Nucleated Red Blood Cells # 0.0 Sodium Level 138 Potassium Level 4.5 Chloride Level 110 Carbon Dioxide Level 20 L Anion Gap 8 Blood Urea Nitrogen 80 H Creatinine 5.03 H Est Glomerular Filtrat Rate mL/min 11 L Glucose Level 96 Calcium Level 8.8 Phosphorus Level 5.7 H Magnesium Level 2.6 H Medications Medications Current Medications IV Flush (NS 3 ml) 3 ml PER PROTOCOL IV ; Start 01/12/19 at 13:30 Ondansetron HCl (Zofran Inj) 4 mg Q6H PRN IV NAUSEA/VOMITING Last administered on 01/18/19 12:32; Admin Dose 4 MG; Start 01/12/19 at 13:30 Acetaminophen (Tylenol Tab) 650 mg Q6H PRN PO .PAIN 1-3 OR TEMP Last administered on 01/19/19 21:05; Admin Dose 650 MG; Start 01/12/19 at 13:30 Docusate Sodium (Colace) 100 mg Q12H PRN PO .CONSTIPATION; Start 01/12/19 at 13:30 Magnesium Hydroxide (Milk Of Mag) 30 ml DAILY PRN PO .CONSTIPATION; Start 01/12/19 at 13:30 Hydralazine HCl (Apresoline) 10 mg Q6H PRN IV ELEVATED BLOOD PRESSURE; Start 01/12/19 at 13:30 Nitroglycerin (Nitroglycerin (Sl Tab) 0.4 Mg) 1 tab Q5M PRN SL ANGINA Last administered on 01/18/19 08:00; Admin Dose 1 TAB; Start 01/12/19 at 13:30 Carvedilol (Coreg) 25 mg BID PO Last administered on 01/20/19 21:01; Admin Dose 25 MG; Start 01/12/19 at 21:00 Calcium Acetate (Phoslo) 667 mg WITH MEALS PO Last administered on 01/20/19 08:20; Admin Dose 667 MG; Start 01/13/19 at 17:55 Polyethylene Glycol (Miralax) 17 gm DAILY PO Last administered on 01/20/19 08:20; Admin Dose 17 GM; Start 01/17/19 at 14:00 Morphine Sulfate (morphine) 6 mg Q4H PRN PO SEVERE PAIN LEVEL 7-10 Last administered on 01/21/19 05:21; Admin Dose 6 MG; Start 01/17/19 at 22:30 Aspirin (Aspirin) 81 mg DAILY PO Last administered on 2/22/19at 08:20; Admin Dose 81 MG; Start 01/18/19 at 09:00 Docusate Sodium (Colace) 100 mg BID PO Last administered on 01/20/19at 21:00; Admin Dose 100 MG; Start 01/18/19 at 09:00 Pantoprazole (Protonix Tab) 40 mg DAILY@0600 PO Last administered on 01/21/19at 05:21; Admin Dose 40 MG; Start 01/18/19 at 06:00 Albuterol/ Ipratropium (Duoneb) 3 ml Q6 PRN INH WHEEZING AND SOB; Start 01/18/19 at 04:00 Atorvastatin Calcium (Lipitor) 80 mg HS PO Last administered on 01/20/19at 21:00; Admin Dose 80 MG; Start 01/18/19 at 21:00 Clopidogrel Bisulfate (plaVIX) 75 mg DAILY PO Last administered on 01/20/19at 08:20; Admin Dose 75 MG; Start 01/19/19 at 19:00 Lorazepam (Ativan) 0.5 mg Q6H PRN IV AGITAION Last administered on 01/20/19at 22:45; Admin Dose 0.5 MG; Start 01/20/19 at 00:00 KYLIE LEVY MD Jan 21, 2019 08:13
[2019-01-21] MEDS: CALCIUM ACETATE 667 MG CAP PO SCH ×3 (08:55→17:46)
[2019-01-21] MEDS: ASPIRIN 81 MG TAB PO SCH (08:55)
[2019-01-21] MEDS: CLOPIDOGREL 75 MG TAB PO SCH (08:55)
[2019-01-21] MEDS: DOCUSATE SODIUM 100 MG CAP PO SCH ×2 (08:56→20:34)
[2019-01-21] MEDS: POLYETHYLENE GLYCOL 17 GM PACKET PO SCH (08:56)
[2019-01-21] MEDS: LORAZEPAM 2 MG INJ IV PRN (09:09)
--- NOTE | 2019-01-21 11:28 | PN ---
Date/Time of Note Date/Time of Note DATE: 01/21/19 TIME: 11:22 Assessment/Plan VTE Prophylaxis Risk score (from Ns)>0 risk: 3 SCD applied (from Ns): Yes Pharmacological prophylaxis: heparin Pharm contraindication: low risk/ambulating Lines/Catheters IV [facility]from [facility] Saline Lock Urinary Cath still in place: Yes Reason Cath still needed: other (indicate) (not needed) Assessment/Plan Assessment/Plan 63-year-old homeless woman with prior history of chronic kidney disease, questionable chronic obstructive pulmonary disease, congestive heart failure, hypertension, bilateral renal artery stenosis, hepatitis C and anemia who comes in with shortness of breath with signs of congestive heart failure exacerbation and also acute on chronic renal insufficiency. #Delerium - Patient is at high risk of delerium with long hospital stay, frequent benzodiazepines - Will hold benzos and other sedating medications now - In case of severe agitation not responsive to verbal deescalation with consider haloperidol #NSTEMI - Had elevated trops, TWIs in hospital early AM on 01/18. - Due to patient's history of poor compliance, treated medically with heparin gtt x48 hours. Also patient refused cardiac cath worried it will make her dial ysis dependent. - Possibility of in-hospital cocaine use, Utox positive even 6 days after admission. # Pleural effusion - Had R pleural effusion with thoracentesis in 10/2018. Was transudative by protein, no serum LDH to compare it to. Culture and pathology negative. Now CXR shows loculation of that effusion. - Repeat R therapeutic thoracentesis 01/20/19 - Now breathing comfortably on room air. # Pulmonary edema - CXR shows possible "diffuse infiltrates". But no fever, WBC to suggest in fection. Will hold off on antibiotics. - Currently holding IV diuresis. - Breathing comfortably on room air now. # CKD - Per renal team, on last admission in 10/2018 already creatinine was in 3.59 and then had peaked up to 4.2 and on discharge was 2.76; however on this admission was 3.39. After diuresis higher at 5.1, trending up the last couple of days-could be because of cardiorenal disease versus worsening of renal artery stenosis (Of note patient had a renal ultrasound with arterial Doppler performed November 08, 2018: It showed ultrasound evidence of severe bilateral renal artery stenoses but repeat shows no stenosis). The patient has history of hepatitis C, could be possibility of some glomerulonephritis as well. Patient has not been on Lasix actually secondary to elevated creatinine levels. -Continue phosphate binder, monitor BUN and creatinine levels very carefully -Monitor ins and outs -Follow-up renal recommendations - Currently patient declines dialysis. # History of hypertension. She presented at the outside hospital with mild hypertensive urgency, but this has resolved now. - Continue BP meds. Currently borderline hypotensive. #Homelessness - Social work consult DVT: heparin subQ GI: PPI Result Diagram: 01/21/19 0544 01/21/1944 Subjective 24 Hr Interval Summary Free Text/Dictation Got thoracentesis yesterday with 1L out. Required Ativan again this morning. Now breathing comfortably room air. Exam/Review of Systems Exam Vitals Vital Signs Date Temp Pulse Resp B/P (MAP) Pulse Ox O2 O2 Flow FiO2 Time Delivery Rate 01/21/19 Nasal 4.0 08:09 Cannula 01/21/19 66 08:03 01/21/19 98.0 18 111/77 95 07:16 (88) 01/17/19 21 23:45 Intake and Output 01/20/19 01/20/19 01/21/19 1515:00 23:00 07:00 IntakeIntake Total 550 ml 480 ml OutputOutput Total 400 ml 900 ml BalanceBalance 150 ml -420 ml Exam GENERAL: lying in bed, no acute distress, somnolent but arousable. HEENT: Pupils are equal, round, reactive to light. Extraocular muscles are intact. NECK: Supple. No thyromegaly. LUNGS: Diminished R sided breath sounds. Normal L lung sounds. CARDIOVASCULAR: S1, S2 heard. No rubs or gallops. ABDOMEN: Soft, nontender, nondistended. Normal bowel sounds. No rebound or guarding. MUSCULOSKELETAL: No LE edema. Results Results 24hrs Laboratory Tests Test 01/21/19 05:44 White Blood Count 7.4 Red Blood Count 4.17 L Hemoglobin 10.1 L Hematocrit 33.7 L Mean Corpuscular Volume 80.8 L Mean Corpuscular Hemoglobin 24.2 L Mean Corpuscular Hemoglobin Concent 30.0 L Red Cell Distribution Width 20.8 H Platelet Count 204 Mean Platelet Volume 10.7 H Immature Granulocytes % 0.500 H Neutrophils % 75.6 Lymphocytes % 13.6 L Monocytes % 8.4 Eosinophils % 1.4 Basophils % 0.5 Nucleated Red Blood Cells % 0.0 Immature Granulocytes # 0.040 H Neutrophils # 5.6 Lymphocytes # 1.0 Monocytes # 0.6 Eosinophils # 0.1 Basophils # 0.0 Nucleated Red Blood Cells # 0.0 Sodium Level 138 Potassium Level 4.5 Chloride Level 110 Carbon Dioxide Level 20 L Anion Gap 8 Blood Urea Nitrogen 80 H Creatinine 5.03 H Est Glomerular Filtrat Rate mL/min 11 L Glucose Level 96 Calcium Level 8.8 Phosphorus Level 5.7 H Magnesium Level 2.6 H Medications Medication Current Medications IV Flush (NS 3 ml) 3 ml PER PROTOCOL IV ; Start 01/12/19 at 13:30 Ondansetron HCl (Zofran Inj) 4 mg Q6H PRN IV NAUSEA/VOMITING Last administered on 01/18/19 12:32; Admin Dose 4 MG; Start 01/12/19 at 13:30 Acetaminophen (Tylenol Tab) 650 mg Q6H PRN PO .PAIN 1-3 OR TEMP Last administered on 01/19/19at 21:05; Admin Dose 650 MG; Start 01/12/19 at 13:30 Docusate Sodium (Colace) 100 mg Q12H PRN PO .CONSTIPATION; Start 01/12/19 at 13:30 Magnesium Hydroxide (Milk Of Mag) 30 ml DAILY PRN PO .CONSTIPATION; Start 01/12/19 at 13:30 Hydralazine HCl (Apresoline) 10 mg Q6H PRN IV ELEVATED BLOOD PRESSURE; Start 01/12/19 at 13:30 Nitroglycerin (Nitroglycerin (Sl Tab) 0.4 Mg) 1 tab Q5M PRN SL ANGINA Last administered on 01/18/19 08:00; Admin Dose 1 TAB; Start 01/12/19 at 13:30 Carvedilol (Coreg) 25 mg BID PO Last administered on 01/21/19 08:55; Admin Dos e 25 MG; Start 01/12/19 at 21:00 Calcium Acetate (Phoslo) 667 mg WITH MEALS PO Last administered on 01/21/19 08:55; Admin Dose 667 MG; Start 01/13/19 at 17:55 Polyethylene Glycol (Miralax) 17 gm DAILY PO Last administered on 01/21/19 08:56; Admin Dose 17 GM; Start 01/17/19 at 14:00 Morphine Sulfate (morphine) 6 mg Q4H PRN PO SEVERE PAIN LEVEL 7-10 Last administered on 01/21/19 05:21; Admin Dose 6 MG; Start 01/17/19 at 22:30 Aspirin (Aspirin) 81 mg DAILY PO Last administered on 01/21/19 08:55; Admin Dose 81 MG; Start 01/18/19 at 09:00 Docusate Sodium (Colace) 100 mg BID PO Last administered on 01/21/19 08:56; Admin Dose 100 MG; Start 01/18/19 at 09:00 Pantoprazole (Protonix Tab) 40 mg DAILY@0600 PO Last administered on 01/21/19 05:21; Admin Dose 40 MG; Start 01/18/19 at 06:00 Albuterol/ Ipratropium (Duoneb) 3 ml Q6 PRN INH WHEEZING AND SOB; Start 01/18/19 at 04:00 Atorvastatin Calcium (Lipitor) 80 mg HS PO Last administered on 01/20/19 21:00; Admin Dose 80 MG; Start 01/18/19 at 21:00 Clopidogrel Bisulfate (plaVIX) 75 mg DAILY PO Last administered on 01/21/19 08:55; Admin Dose 75 MG; Start 01/19/19 at 19:00 SEBASTIAN GRAHAM MD Jan 21, 2019 11:28
--- NOTE | 2019-01-21 12:44 | CONS ---
Assessment/Plan Assessment/Plan Hospital Course (Demo Recall) 1. Questionable acute on chronic renal disease. On last admission in 10/2018, already creatinine was in 3.59 and then had peaked up to 4.2 and on discharge was 2.76; however on this admission was 3.39. It could be very well because of cardiorenal disease versus worsening of renal artery stenosis. US showed :No visualized evidence of renal artery stenosis. Mildly elevated intrarenal artery resistive indices on the right. Finding is nonspecific and could be the sequelae of medical renal disease, prior insult or chronic ischemia. Increased cortical echogenicity in both kidneys suggesting medical renal disease. Simple right renal cyst. Creatinine is decreased . 2. CHF 3. Nephrotic syndrome with proteinuria. 4. Hypertension, controlled in house. No renal artery stenosis. Pt is more likely is not compliant with medications at home, now even borderline 5. History of hepatitis C. 6. Simple right renal cyst. 7. Anemia 8. Recent NSTEMI 9. Cocaine use Assessment/Plan (Daily) -oxygen requirement stable on 2 L -patient had been refusing hemodialysis -avoid bp drops to increase renal perfusion - renally dose all meds - avoid nephrotoxins Consultation Date/Type/Reason Admit Date/Time Jan 12, 2019 at 12:23 Initial Consult Date 01/12/2019 Type of Consult nephrology Reason for Consultation Dr Manzo Requesting Provider: KATHY ZARAGOZA MD Date/Time of Note DATE: 01/21/19 TIME: 12:42 Exam/Review of Systems Exam Vitals Vital Signs Date Temp Pulse Resp B/P (MAP) Pulse Ox O2 O2 Flow FiO2 Time Delivery Rate 01/21/19 65 12:06 01/21/19 98.0 138/91 98 Nasal 11:42 (107) Cannula 01/21/19 4.0 08:09 01/21/19 18 07:16 01/17/19 21 23:45 Intake and Output 01/20/19 01/20/19 01/21/19 1515:00 23:00 07:00 IntakeIntake Total 550 ml 480 ml OutputOutput Total 400 ml 900 ml BalanceBalance 150 ml -420 ml Exam slow in response. Constitutional: alert, oriented (name) Neck: supple Respiratory: diminished breath sounds Cardiovascular: regular rate and rhythm Gastrointestinal: soft Results Result Diagram: 01/21/19 0544 01/21/19 0544 Results 24hrs Laboratory Tests Test 01/21/19 05:44 White Blood Count 7.4 Red Blood Count 4.17 L Hemoglobin 10.1 L Hematocrit 33.7 L Mean Corpuscular Volume 80.8 L Mean Corpuscular Hemoglobin 24.2 L Mean Corpuscular Hemoglobin Concent 30.0 L Red Cell Distribution Width 20.8 H Platelet Count 204 Mean Platelet Volume 10.7 H Immature Granulocytes % 0.500 H Neutrophils % 75.6 Lymphocytes % 13.6 L Monocytes % 8.4 Eosinophils % 1.4 Basophils % 0.5 Nucleated Red Blood Cells % 0.0 Immature Granulocytes # 0.040 H Neutrophils # 5.6 Lymphocytes # 1.0 Monocytes # 0.6 Eosinophils # 0.1 Basophils # 0.0 Nucleated Red Blood Cells # 0.0 Sodium Level 138 Potassium Level 4.5 Chloride Level 110 Carbon Dioxide Level 20 L Anion Gap 8 Blood Urea Nitrogen 80 H Creatinine 5.03 H Est Glomerular Filtrat Rate mL/min 11 L Glucose Level 96 Calcium Level 8.8 Phosphorus Level 5.7 H Magnesium Level 2.6 H Medications Medication Current Medications IV Flush (NS 3 ml) 3 ml PER PROTOCOL IV ; Start 01/12/19 at 13:30 Ondansetron HCl (Zofran Inj) 4 mg Q6H PRN IV NAUSEA/VOMITING Last administered on 01/18/19at 12:32; Admin Dose 4 MG; Start 01/12/19 at 13:30 Acetaminophen (Tylenol Tab) 650 mg Q6H PRN PO .PAIN 1-3 OR TEMP Last administered on 01/19/19at 21:05; Admin Dose 650 MG; Start 01/12/19 at 13:30 Docusate Sodium (Colace) 100 mg Q12H PRN PO .CONSTIPATION; Start 01/12/19 at 13:30 Magnesium Hydroxide (Milk Of Mag) 30 ml DAILY PRN PO .CONSTIPATION; Start 01/12/19 at 13:30 Hydralazine HCl (Apresoline) 10 mg Q6H PRN IV ELEVATED BLOOD PRESSURE; Start 01/12/19 at 13:30 Nitroglycerin (Nitroglycerin (Sl Tab) 0.4 Mg) 1 tab Q5M PRN SL ANGINA Last administered on 01/18/19at 08:00; Admin Dose 1 TAB; Start 01/12/19 at 13:30 Carvedilol (Coreg) 25 mg BID PO Last administered on 01/21/19 08:55; Admin Dose 25 MG; Start 01/12/19 at 21:00 Calcium Acetate (Phoslo) 667 mg WITH MEALS PO Last administered on 01/21/19 08:55; Admin Dose 667 MG; Start 01/13/19 at 17:55 Polyethylene Glycol (Miralax) 17 gm DAILY PO Last administered on 01/21/19 08:56; Admin Dose 17 GM; Start 01/17/19 at 14:00 Morphine Sulfate (morphine) 6 mg Q4H PRN PO SEVERE PAIN LEVEL 7-10 Last a dministered on 01/21/19 05:21; Admin Dose 6 MG; Start 01/17/19 at 22:30 Aspirin (Aspirin) 81 mg DAILY PO Last administered on 01/21/19 08:55; Admin Dose 81 MG; Start 01/18/19 at 09:00 Docusate Sodium (Colace) 100 mg BID PO Last administered on 01/21/19 08:56; Admin Dose 100 MG; Start 01/18/19 at 09:00 Pantoprazole (Protonix Tab) 40 mg DAILY@0600 PO Last administered on 01/21/19 05:21; Admin Dose 40 MG; Start 01/18/19 at 06:00 Albuterol/ Ipratropium (Duoneb) 3 ml Q6 PRN INH WHEEZING AND SOB; Start 01/18/19 at 04:00 Atorvastatin Calcium (Lipitor) 80 mg HS PO Last administered on 01/20/19 21:00; Admin Dose 80 MG; Start 01/18/19 at 21:00 Clopidogrel Bisulfate (plaVIX) 75 mg DAILY PO Last administered on 01/21/19 08:55; Admin Dose 75 MG; Start 01/19/19 at 19:00 Heparin Sodium (Porcine) (Heparin (5000 Units/1ml)) 5,000 unit BID SC ; Start 01/21/19 at 21:00 BRET BORDEN Jan 21, 2019 12:44
[2019-01-21] MEDS: ONDANSETRON 4 MG INJ IV PRN (18:46)
[2019-01-21] MEDS: ATORVASTATIN 80 MG TAB PO SCH (20:34)
[2019-01-21] MEDS: HEPARIN 5,000 UNIT/1 ML VIAL SC SCH (22:26)
[2019-01-22] VITALS (13 sets, daily range): BP systolic 113–168; BP diastolic 78–99; PULSE 61–75; RESP 17–22
[2019-01-22] MEDS: PANTOPRAZOLE (EC) 40 MG TAB PO SCH (05:03)
[2019-01-22] MEDS: ONDANSETRON 4 MG INJ IV PRN (07:58)
[2019-01-22] MEDS: POLYETHYLENE GLYCOL 17 GM PACKET PO SCH (08:16)
[2019-01-22] MEDS: CLOPIDOGREL 75 MG TAB PO SCH (08:16)
[2019-01-22] MEDS: CALCIUM ACETATE 667 MG CAP PO SCH ×3 (08:17→17:35)
[2019-01-22] MEDS: ASPIRIN 81 MG TAB PO SCH (08:17)
[2019-01-22] MEDS: DOCUSATE SODIUM 100 MG CAP PO SCH ×2 (08:17→20:50)
[2019-01-22] MEDS: HEPARIN 5,000 UNIT/1 ML VIAL SC SCH ×2 (08:27→20:55)
[2019-01-22] MEDS: morphine LIQ (10 MG/5 ML) CUP PO PRN ×2 (10:40→22:55)
--- NOTE | 2019-01-22 12:21 | CONS ---
Assessment/Plan Cardiology Heart Failure Type: Acute on Chronic Heart Failure Type: Diastolic Assessment/Plan Hospital Course (Demo Recall) NSTEMI Acute on chronic diastolic congestive heart failure Acute on chronic renal insufficiency Cocaine use Hypertension -Given blood pressure on the higher side, would start Isordil -Otherwise, continue medical therapy for myocardial infarction given patient refusing coronary angiogram -Dr. Del Toro to resume care 01/23/2019 Consultation Date/Type/Reason Admit Date/Time Jan 12, 2019 at 12:23 Initial Consult Date 01/18/19 Type of Consult Cardiology Requesting Provider: KATHY ZARAGOZA MD Date/Time of Note DATE: 01/22/19 TIME: 12:19 24 HR Interval Summary Free Text/Dictation Patient complains of full body pain, denies shortness of breath Exam/Review of Systems Vital Signs Vitals Vital Signs Date Temp Pulse Resp B/P (MAP) Pulse Ox O2 O2 Flow FiO2 Time Delivery Rate 01/22/19 75 12:07 01/22/19 98.5 18 168/99 95 11:16 (122) 01/22/19 Nasal 3.0 07:18 Cannula 01/21/19 32 17:23 Intake and Output 01/21/19 01/21/19 01/22/19 1515:00 23:00 07:00 IntakeIntake Total 650 ml 600 ml OutputOutput Total 800 ml 150 ml BalanceBalance -150 ml 450 ml Exam Exam Lying in bed, moaning, friend at bedside, following commands Head: normocephalic Respiratory: other (Coarse breath sounds bilaterally, no wheezing) Cardiovascular: regular rate and rhythm (S1-S2 heard) Gastrointestinal: soft, non-tender, bowel sounds Extremities: other (Trace edema) Labs Result Diagram: 01/22/19 0541 01/22/19 0541 Results 24hrs Laboratory Tests Test 01/22/19 05:41 White Blood Count 5.2 # Red Blood Count 4.31 Hemoglobin 10.2 L Hematocrit 34.8 L Mean Corpuscular Volume 80.7 L Mean Corpuscular Hemoglobin 23.7 L Mean Corpuscular Hemoglobin Concent 29.3 L Red Cell Distribution Width 20.3 H Platelet Count 253 # Mean Platelet Volume 9.9 Immature Granulocytes % 0.800 H Neutrophils % 73.0 Lymphocytes % 14.7 L Monocytes % 9.2 Eosinophils % 1.7 Basophils % 0.6 Nucleated Red Blood Cells % 0.0 Immature Granulocytes # 0.040 H Neutrophils # 3.8 Lymphocytes # 0.8 Monocytes # 0.5 Eosinophils # 0.1 Basophils # 0.0 Nucleated Red Blood Cells # 0.0 Sodium Level 144 Potassium Level 4.6 Chloride Level 113 H Carbon Dioxide Level 21 Anion Gap 10 Blood Urea Nitrogen 78 H Creatinine 4.59 H Est Glomerular Filtrat Rate mL/min 12 L Glucose Level 97 Calcium Level 9.1 Medications Medications Current Medications IV Flush (NS 3 ml) 3 ml PER PROTOCOL IV ; Start 01/12/19 at 13:30 Ondansetron HCl (Zofran Inj) 4 mg Q6H PRN IV NAUSEA/VOMITING Last administered on 01/22/19 07:58; Admin Dose 4 MG; Start 01/12/19 at 13:30 Acetaminophen (Tylenol Tab) 650 mg Q6H PRN PO .PAIN 1-3 OR TEMP Last administered on 01/19/19 21:05; Admin Dose 650 MG; Start 01/12/19 at 13:30 Docusate Sodium (Colace) 100 mg Q12H PRN PO .CONSTIPATION; Start 01/12/19 at 13:30 Magnesium Hydroxide (Milk Of Mag) 30 ml DAILY PRN PO .CONSTIPATION; Start 01/12/19 at 13:30 Hydralazine HCl (Apresoline) 10 mg Q6H PRN IV ELEVATED BLOOD PRESSURE; Start 01/12/19 at 13:30 Nitroglycerin (Nitroglycerin (Sl Tab) 0.4 Mg) 1 tab Q5M PRN SL ANGINA Last administered on 01/18/19 08:00; Admin Dose 1 TAB; Start 01/12/19 at 13:30 Carvedilol (Coreg) 25 mg BID PO Last administered on 01/22/19 08:17; Admin Dose 25 MG; Start 01/12/19 at 21:00 Calcium Acetate (Phoslo) 667 mg WITH MEALS PO Last administered on 01/22/19 11:59; Admin Dose 667 MG; Start 01/13/19 at 17:55 Polyethylene Glycol (Miralax) 17 gm DAILY PO Last administered on 01/22/19 08:16; Admin Dose 17 GM; Start 01/17/19 at 14:00 Morphine Sulfate (morphine) 6 mg Q4H PRN PO SEVERE PAIN LEVEL 7-10 Last adminis tered on 01/22/19 10:40; Admin Dose 6 MG; Start 01/17/19 at 22:30 Aspirin (Aspirin) 81 mg DAILY PO Last administered on 01/22/19 08:17; Admin Dose 81 MG; Start 01/18/19 at 09:00 Docusate Sodium (Colace) 100 mg BID PO Last administered on 01/22/19 08:17; Admin Dose 100 MG; Start 01/18/19 at 09:00 Pantoprazole (Protonix Tab) 40 mg DAILY@0600 PO Last administered on 01/22/19 05:03; Admin Dose 40 MG; Start 01/18/19 at 06:00 Albuterol/ Ipratropium (Duoneb) 3 ml Q6 PRN INH WHEEZING AND SOB; Start 01/18/19 at 04:00 Atorvastatin Calcium (Lipitor) 80 mg HS PO Last administered on 01/21/19 20: 34; Admin Dose 80 MG; Start 01/18/19 at 21:00 Clopidogrel Bisulfate (plaVIX) 75 mg DAILY PO Last administered on 01/22/19 08:16; Admin Dose 75 MG; Start 01/19/19 at 19:00 Heparin Sodium (Porcine) (Heparin (5000 Units/1ml)) 5,000 unit BID SC Last administered on 01/22/19 08:27; Admin Dose 5,000 UNIT; Start 01/21/19 at 21:00 Marcello Edwards DO Jan 22, 2019 12:21
--- NOTE | 2019-01-22 12:22 | PN ---
Date/Time of Note Date/Time of Note DATE: 01/22/19 TIME: 12:17 Assessment/Plan VTE Prophylaxis Risk score (from Ns)>0 risk: 7 SCD applied (from Ns): Yes Pharmacological prophylaxis: heparin Lines/Catheters IV [facility]ter Type [facility]from [facility] Saline Lock Urinary Cath still in place: No Assessment/Plan Assessment/Plan 63-year-old homeless woman with prior history of chronic kidney disease, questionable chronic obstructive pulmonary disease, congestive heart failure, hypertension, bilateral renal artery stenosis, hepatitis C and anemia who presents with acute CHF exacerbation and HERSON. #Delerium - Patient is at high risk of delerium with long hospital stay, frequent benzodiazepines - Will hold benzos and other sedating medications now - In case of severe agitation not responsive to verbal deescalation with consider haloperidol #NSTEMI - Had elevated trops, TWIs in hospital early AM on 01/18. - Due to patient's history of poor compliance, treated medically with heparin gtt x48 hours. Also patient refused cardiac cath worried it will make her dialysis dependent. - Possibility of in-hospital cocaine use, Utox positive even 6 days after admission. - Continue aspirin and plavix after discharge. # Pleural effusion - Had R pleural effusion with thoracentesis in 10/2018. Was transudative by protein, no serum LDH to compare it to. Culture and pathology negative. Now CXR shows loculation of that effusion. - Repeat R therapeutic thoracentesis 01/20/19 - Now breathing comfortably on room air. # Pulmonary edema- resolved - CXR shows possible "diffuse infiltrates". But no fever, WBC to suggest infection. Will hold off on antibiotics. - s/p IV diuresis - Breathing comfortably on room air now. # CKD - Per renal team, on last admission in 10/2018 already creatinine was in 3.59 and then had peaked up to 4.2 and on discharge was 2.76; however on this admission was 3.39. After diuresis higher at 5.1, trending up the last couple of days-could be because of cardiorenal disease versus worsening of renal artery stenosis (Of note patient had a renal ultrasound with arterial Doppler performed November 08, 2018: It showed ultrasound evidence of severe bilateral renal artery stenoses but repeat shows no stenosis). The patient has history of hepatitis C, could be possibility of some glomerulonephritis as well. Patient has not been on Lasix actually secondary to elevated creatinine levels. -Continue phosphate binder, monitor BUN and creatinine levels very carefully -Monitor ins and outs -Follow-up renal recommendations - Currently patient declines dialysis. # History of hypertension. She presented at the outside hospital with mild hypertensive urgency, but this has resolved now. - Continue BP meds. Currently borderline hypotensive. #Homelessness - Social work consult DVT: heparin subQ GI: PPI Dispo: No further inpatient medical management required. Repeat PT/OT eval. Likely will require subacute care. Patient is homeless and would benefit from temporary housing if she qualifies. Result Diagram: 01/22/19 0541 01/22/19 0541 Subjective 24 Hr Interval Summary Free Text/Dictation Patient lying on bed moaning and crying. No distinct complaints; she says"I want to get better". Upon further questioning she does report vague aching chest pain. Her was at bedside, I updated him on the plan. He is requesting social work consult for housing after discharge if possible. Exam/Review of Systems Exam Vitals Vital Signs Date Temp Pulse Resp B/P (MAP) Pulse Ox O2 O2 Flow FiO2 Time Delivery Rate 01/22/19 75 12:07 01/22/19 98.5 18 168/99 95 11:16 (122) 01/22/19 Nasal 3.0 07:18 Cannula 01/21/19 32 17:23 Intake and Output 01/21/19 01/21/19 01/22/19 1515:00 23:00 07:00 IntakeIntake Total 650 ml 600 ml OutputOutput Total 800 ml 150 ml BalanceBalance -150 ml 450 ml Exam GENERAL: lying in bed, moaning, answers questions appropriately. HEENT: Pupils are equal, round, reactive to light. Extraocular muscles are intact. NECK: Supple. No thyromegaly. LUNGS: Diminished R sided breath sounds. Normal L lung sounds. R thoracentesis site well healed. CARDIOVASCULAR: S1, S2 heard. No rubs or gallops. ABDOMEN: Soft, nontender, nondistended. Normal bowel sounds. No rebound or guarding. MUSCULOSKELETAL: No LE edema. Results Results 24hrs Laboratory Tests Test 01/22/19 05:41 White Blood Count 5.2 # Red Blood Count 4.31 Hemoglobin 10.2 L Hematocrit 34.8 L Mean Corpuscular Volume 80.7 L Mean Corpuscular Hemoglobin 23.7 L Mean Corpuscular Hemoglobin Concent 29.3 L Red Cell Distribution Width 20.3 H Platelet Count 253 # Mean Platelet Volume 9.9 Immature Granulocytes % 0.800 H Neutrophils % 73.0 Lymphocytes % 14.7 L Monocytes % 9.2 Eosinophils % 1.7 Basophils % 0.6 Nucleated Red Blood Cells % 0.0 Immature Granulocytes # 0.040 H Neutrophils # 3.8 Lymphocytes # 0.8 Monocytes # 0.5 Eosinophils # 0.1 Basophils # 0.0 Nucleated Red Blood Cells # 0.0 Sodium Level 144 Potassium Level 4.6 Chloride Level 113 H Carbon Dioxide Level 21 Anion Gap 10 Blood Urea Nitrogen 78 H Creatinine 4.59 H Est Glomerular Filtrat Rate mL/min 12 L Glucose Level 97 Calcium Level 9.1 Medications Medication Current Medications IV Flush (NS 3 ml) 3 ml PER PROTOCOL IV ; Start 01/12/19 at 13:30 Ondansetron HCl (Zofran Inj) 4 mg Q6H PRN IV NAUSEA/VOMITING Last administered on 01/22/19at 07:58; Admin Dose 4 MG; Start 01/12/19 at 13:30 Acetaminophen (Tylenol Tab) 650 mg Q6H PRN PO .PAIN 1-3 OR TEMP Last administered on 01/19/19at 21:05; Admin Dose 650 MG; Start 01/12/19 at 13:30 Docusate Sodium (Colace) 100 mg Q12H PRN PO .CONSTIPATION; Start 01/12/19 at 13:30 Magnesium Hydroxide (Milk Of Mag) 30 ml DAILY PRN PO .CONSTIPATION; Start 01/12/19 at 13:30 Hydralazine HCl (Apresoline) 10 mg Q6H PRN IV ELEVATED BLOOD PRESSURE; Start 01/12/19 at 13:30 Nitroglycerin (Nitroglycerin (Sl Tab) 0.4 Mg) 1 tab Q5M PRN SL ANGINA Last administered on 01/18/19at 08:00; Admin Dose 1 TAB; Start 01/12/19 at 13:30 Carvedilol (Coreg) 25 mg BID PO Last administered on 01/22/19 08:17; Admin Dose 25 MG; Start 01/12/19 at 21:00 Calcium Acetate (Phoslo) 667 mg WITH MEALS PO Last administered on 01/22/19 11:59; Admin Dose 667 MG; Start 01/13/19 at 17:55 Polyethylene Glycol (Miralax) 17 gm DAILY PO Last administered on 01/22/19 08:16; Admin Dose 17 GM; Start 01/17/19 at 14:00 Morphine Sulfate (morphine) 6 mg Q4H PRN PO SEVERE PAIN LEVEL 7-10 Last administered on 01/22/19 10:40; Admin Dose 6 MG; Start 01/17/19 at 22:30 Aspirin (Aspirin) 81 mg DAILY PO Last administered on 01/22/19 08:17; Admin Dose 81 MG; Start 01/18/19 at 09:00 Docusate Sodium (Colace) 100 mg BID PO Last administered on 01/22/19 08:17; Admin Dose 100 MG; Start 01/18/19 at 09:00 Pantoprazole (Protonix Tab) 40 mg DAILY@0600 PO Last administered on 01/22/19 05:03; Admin Dose 40 MG; Start 01/18/19 at 06:00 Albuterol/ Ipratropium (Duoneb) 3 ml Q6 PRN INH WHEEZING AND SOB; Start 01/18/19 at 04:00 Atorvastatin Calcium (Lipitor) 80 mg HS PO Last administered on 01/21/19 20:34; Admin Dose 80 MG; Start 01/18/19 at 21:00 Clopidogrel Bisulfate (plaVIX) 75 mg DAILY PO Last administered on 01/22/19 08:16; Admin Dose 75 MG; Start 01/19/19 at 19:00 Heparin Sodium (Porcine) (Heparin (5000 Units/1ml)) 5,000 unit BID SC Last administered on 01/22/19 08:27; Admin Dose 5,000 UNIT; Start 01/21/19 at 21:00 SEBASTIAN GRAHAM MD Jan 22, 2019 12:22
[2019-01-22] MEDS: ISOSORBIDE DINITRATE 5 MG TAB PO SCH ×2 (13:53→20:49)
--- NOTE | 2019-01-22 16:42 | CONS ---
Assessment/Plan Assessment/Plan Hospital Course (Demo Recall) 1. acute on chronic renal disease. drug abuse 2. CHF 3. Nephrotic syndrome with proteinuria. 4. Hypertension, 5. History of hepatitis C. 6. Simple right renal cyst. 7. Anemia 8. Recent NSTEMI 9. Cocaine use plan ck bmp Consultation Date/Type/Reason Admit Date/Time Jan 12, 2019 at 12:23 Initial Consult Date Type of Consult RENAL F/U NO SOB NO CP HX DRUG ABUSE labs seen Requesting Provider: KATHY ZARAGOZA MD Date/Time of Note DATE: 01/22/19 TIME: 16:39 Exam/Review of Systems Exam Vitals Vital Signs Date Temp Pulse Resp B/P (MAP) Pulse Ox O2 O2 Flow FiO2 Time Delivery Rate 01/22/19 72 16:22 01/22/19 97.6 17 113/78 94 15:41 (90) 01/22/19 3.0 12:29 01/22/19 Nasal 07:18 Cannula 01/21/19 32 17:23 Intake and Output 01/21/19 01/21/19 01/22/19 1515:00 23:00 07:00 IntakeIntake Total 650 ml 600 ml OutputOutput Total 800 ml 150 ml BalanceBalance -150 ml 450 ml Cardiovascular: regular rate and rhythm Gastrointestinal: soft, non-tender Extremities: normal pulses Results Result Diagram: 01/22/19 0541 01/22/19 0541 Results 24hrs Laboratory Tests Test 01/22/19 05:41 White Blood Count 5.2 # Red Blood Count 4.31 Hemoglobin 10.2 L Hematocrit 34.8 L Mean Corpuscular Volume 80.7 L Mean Corpuscular Hemoglobin 23.7 L Mean Corpuscular Hemoglobin Concent 29.3 L Red Cell Distribution Width 20.3 H Platelet Count 253 # Mean Platelet Volume 9.9 Immature Granulocytes % 0.800 H Neutrophils % 73.0 Lymphocytes % 14.7 L Monocytes % 9.2 Eosinophils % 1.7 Basophils % 0.6 Nucleated Red Blood Cells % 0.0 Immature Granulocytes # 0.040 H Neutrophils # 3.8 Lymphocytes # 0.8 Monocytes # 0.5 Eosinophils # 0.1 Basophils # 0.0 Nucleated Red Blood Cells # 0.0 Sodium Level 144 Potassium Level 4.6 Chloride Level 113 H Carbon Dioxide Level 21 Anion Gap 10 Blood Urea Nitrogen 78 H Creatinine 4.59 H Est Glomerular Filtrat Rate mL/min 12 L Glucose Level 97 Calcium Level 9.1 Medications Medication Current Medications IV Flush (NS 3 ml) 3 ml PER PROTOCOL IV ; Start 01/12/19 at 13:30 Ondansetron HCl (Zofran Inj) 4 mg Q6H PRN IV NAUSEA/VOMITING Last administered on 01/22/19 07:58; Admin Dose 4 MG; Start 01/12/19 at 13:30 Acetaminophen (Tylenol Tab) 650 mg Q6H PRN PO .PAIN 1-3 OR TEMP Last administered on 01/19/19 21:05; Admin Dose 650 MG; Start 01/12/19 at 13:30 Docusate Sodium (Colace) 100 mg Q12H PRN PO .CONSTIPATION; Start 01/12/19 at 13:30 Magnesium Hydroxide (Milk Of Mag) 30 ml DAILY PRN PO .CONSTIPATION; Start 01/12/19 at 13:30 Hydralazine HCl (Apresoline) 10 mg Q6H PRN IV ELEVATED BLOOD PRESSURE; Start 01/12/19 at 13:30 Nitroglycerin (Nitroglycerin (Sl Tab) 0.4 Mg) 1 tab Q5M PRN SL ANGINA Last administered on 01/18/19 08:00; Admin Dose 1 TAB; Start 01/12/19 at 13:30 Carvedilol (Coreg) 25 mg BID PO Last administered on 01/22/19 08:17; Admin Dose 25 MG; Start 01/12/19 at 21:00 Calcium Acetate (Phoslo) 667 mg WITH MEALS PO Last administered on 01/22/19 11:59; Admin Dose 667 MG; Start 01/13/19 at 17:55 Polyethylene Glycol (Miralax) 17 gm DAILY PO Last administered on 01/22/19 08:16; Admin Dose 17 GM; Start 01/17/19 at 14:00 Morphine Sulfate (morphine) 6 mg Q4H PRN PO SEVERE PAIN LEVEL 7-10 Last ad ministered on 01/22/19 10:40; Admin Dose 6 MG; Start 01/17/19 at 22:30 Aspirin (Aspirin) 81 mg DAILY PO Last administered on 01/22/19 08:17; Admin Dose 81 MG; Start 01/18/19 at 09:00 Docusate Sodium (Colace) 100 mg BID PO Last administered on 01/22/19 08:17; Admin Dose 100 MG; Start 01/18/19 at 09:00 Pantoprazole (Protonix Tab) 40 mg DAILY@0600 PO Last administered on 01/22/19 05:03; Admin Dose 40 MG; Start 01/18/19 at 06:00 Albuterol/ Ipratropium (Duoneb) 3 ml Q6 PRN INH WHEEZING AND SOB; Start 01/18/19 at 04:00 Atorvastatin Calcium (Lipitor) 80 mg HS PO Last administered on 01/21/19 20:34; Admin Dose 80 MG; Start 01/18/19 at 21:00 Clopidogrel Bisulfate (plaVIX) 75 mg DAILY PO Last administered on 01/22/19 08:16; Admin Dose 75 MG; Start 01/19/19 at 19:00 Heparin Sodium (Porcine) (Heparin (5000 Units/1ml)) 5,000 unit BID SC Last administered on 01/22/19 08:27; Admin Dose 5,000 UNIT; Start 01/21/19 at 21:00 Isosorbide Dinitrate (Isordil) 5 mg TID PO Last administered on 01/22/19 13:53; Admin Dose 5 MG; Start 01/22/19 at 13:00 KINZA MONTENEGRO MD Jan 22, 2019 16:42
[2019-01-22] MEDS: ATORVASTATIN 80 MG TAB PO SCH (20:50)
[2019-01-22] MEDS ORDERED: HALOPERIDOL 5 MG INJ IM ONE (23:30)
[2019-01-22] MEDS ORDERED: LORAZEPAM 2 MG INJ IV ONE (23:30)
[2019-01-23] VITALS (11 sets, daily range): BP systolic 123–164; BP diastolic 63–96; PULSE 67–72; RESP 16–19
[2019-01-23] MEDS: PANTOPRAZOLE (EC) 40 MG TAB PO SCH (06:32)
--- NOTE | 2019-01-23 07:49 | CONS ---
Assessment/Plan Cardiology Heart Failure Type: Acute on Chronic Heart Failure Type: Diastolic Assessment/Plan Hospital Course (Demo Recall) 63 year-old with CKD stage 4 and hypertension and diastolic heart failure, admitted with dyspnea and acute renal failure, sustained a NSTEMI on AM, four days ago. Etiology possibly cocaine, as utox positive for cocaine. Patient declined coronary angiography and is being treated medically. Impression: NSTEMI Acute on chronic diastolic hf, preserved LV function on repeat echo acute on chronic renal insufficiency, near esrd Cocaine use Right pleural effusion Hypertension, controlled Recommendations: She remains hemodynamically stable Medical therapy -- patient declined coronary angiography due to desire to avoid dialysis. Discussed with patient, briefly discussed with Aston, significant other, over the phone on Wednesday morning. Connection was poor and he stated he would call me when he was at the hospital, he did not call. Also left message on Svetlana's (daughter) voice mail. Would be eager to discuss with family if they have questions. Continue aspirin, clopidogrel, atorvastatin, carvedilol, isordil Clearly cocaine cessation would also be of benefit. Consultation Date/Type/Reason Admit Date/Time Jan 12, 2019 at 12:23 Initial Consult Date 01/18/19 Type of Consult Cardiology Requesting Provider: KATHY ZARAGOZA MD Date/Time of Note DATE: 01/23/19 TIME: 07:45 24 HR Interval Summary Free Text/Dictation Patient denies pain, dyspnea. Exam/Review of Systems Vital Signs Vitals Vital Signs Date Temp Pulse Resp B/P (MAP) Pulse Ox O2 O2 Flow FiO2 Time Delivery Rate 01/23/19 97.4 67 16 137/87 99 07:26 (104) 01/23/19 3.0 32 02:51 01/22/19 Nasal 20:00 Cannula Intake and Output 01/22/19 01/22/19 01/23/19 1515:00 23:00 07:00 IntakeIntake Total 600 ml OutputOutput Total 60 ml BalanceBalance 540 ml Exam Constitutional: alert (somnolent but arousable) Head: normocephalic, atraumatic Eyes: nl conjunctiva, nl sclera ENMT: nl external ears & nose Neck: No jvd, No bruits Respiratory: clear to auscultation, normal air movement Cardiovascular: regular rate and rhythm; No murmurs/extra sounds Gastrointestinal: soft, nl liver, spleen, non-tender Musculoskeletal: nl extremities to inspection Extremities: normal pulses Neurological: nl speech Skin: nl turgor Labs Result Diagram: 01/23/1952701/23/19527 Results 24hrs Laboratory Tests Test 01/23/19 05:28 White Blood Count 5.7 Red Blood Count 3.74 L Hemoglobin 8.9 L Hematocrit 30.2 L Mean Corpuscular Volume 80.7 L Mean Corpuscular Hemoglobin 23.8 L Mean Corpuscular Hemoglobin Concent 29.5 L Red Cell Distribution Width 20.1 H Platelet Count 241 Mean Platelet Volume 10.1 Immature Granulocytes % 0.500 H Neutrophils % 66.8 Lymphocytes % 18.6 Monocytes % 11.5 H Eosinophils % 1.9 Basophils % 0.7 Nucleated Red Blood Cells % 0.5 H Immature Granulocytes # 0.030 Neutrophils # 3.8 Lymphocytes # 1.1 Monocytes # 0.7 Eosinophils # 0.1 Basophils # 0.0 Nucleated Red Blood Cells # 0.0 Sodium Level 142 Potassium Level 4.5 Chloride Level 113 H Carbon Dioxide Level 22 Anion Gap 7 Blood Urea Nitrogen 70 H Creatinine 4.30 H Est Glomerular Filtrat Rate mL/min 13 L Glucose Level 89 Calcium Level 8.7 Phosphorus Level 5.1 H Magnesium Level 2.6 H Medications Medications Current Medications IV Flush (NS 3 ml) 3 ml PER PROTOCOL IV ; Start 01/12/19 at 13:30 Ondansetron HCl (Zofran Inj) 4 mg Q6H PRN IV NAUSEA/VOMITING Last administered on 01/22/19at 07:58; Admin Dose 4 MG; Start 01/12/19 at 13:30 Acetaminophen (Tylenol Tab) 650 mg Q6H PRN PO .PAIN 1-3 OR TEMP Last administered on 01/19/19at 21:05; Admin Dose 650 MG; Start 01/12/19 at 13:30 Docusate Sodium (Colace) 100 mg Q12H PRN PO .CONSTIPATION; Start 01/12/19 at 13:30 Magnesium Hydroxide (Milk Of Mag) 30 ml DAILY PRN PO .CONSTIPATION; Start 01/12/19 at 13:30 Hydralazine HCl (Apresoline) 10 mg Q6H PRN IV ELEVATED BLOOD PRESSURE; Start 01/12/19 at 13:30 Nitroglycerin (Nitroglycerin (Sl Tab) 0.4 Mg) 1 tab Q5M PRN SL ANGINA Last administered on 01/18/19 08:00; Admin Dose 1 TAB; Start 01/12/19 at 13:30 Carvedilol (Coreg) 25 mg BID PO Last administered on 01/22/19 20:50; Admin Dose 25 MG; Start 01/12/19 at 21:00 Calcium Acetate (Phoslo) 667 mg WITH MEALS PO Last administered on 01/22/19 11:59; Admin Dose 667 MG; Start 01/13/19 at 17:55 Polyethylene Glycol (Miralax) 17 gm DAILY PO Last administered on 01/22/19 08: 16; Admin Dose 17 GM; Start 01/17/19 at 14:00 Morphine Sulfate (morphine) 6 mg Q4H PRN PO SEVERE PAIN LEVEL 7-10 Last administered on 01/22/19 22:55; Admin Dose 6 MG; Start 01/17/19 at 22:30 Aspirin (Aspirin) 81 mg DAILY PO Last administered on 01/22/19 08:17; Admin Dose 81 MG; Start 01/18/19 at 09:00 Docusate Sodium (Colace) 100 mg BID PO Last administered on 01/22/19 20:50; Admin Dose 100 MG; Start 01/18/19 at 09:00 Pantoprazole (Protonix Tab) 40 mg DAILY@0600 PO Last administered on 01/23/19 06:32; Admin Dose 40 MG; Start 01/18/19 at 06:00 Albuterol/ Ipratropium (Duoneb) 3 ml Q6 PRN INH WHEEZING AND SOB; Start 01/18/19 at 04:00 Atorvastatin Calcium (Lipitor) 80 mg HS PO Last administered on 01/22/19 20:50; Admin Dose 80 MG; Start 01/18/19 at 21:00 Clopidogrel Bisulfate (plaVIX) 75 mg DAILY PO Last administered on 01/22/19 08:16; Admin Dose 75 MG; Start 01/19/19 at 19:00 Heparin Sodium (Porcine) (Heparin (5000 Units/1ml)) 5,000 unit BID SC Last administered on 01/22/19 20:55; Admin Dose 5,000 UNIT; Start 01/21/19 at 21:00 Isosorbide Dinitrate (Isordil) 5 mg TID PO Last administered on 01/22/19at 20:49; Admin Dose 5 MG; Start 01/22/19 at 13:00 EBER HARTLEY Jan 23, 2019 07:49
[2019-01-23] MEDS: DOCUSATE SODIUM 100 MG CAP PO SCH ×2 (09:22→21:35)
[2019-01-23] MEDS: CLOPIDOGREL 75 MG TAB PO SCH (09:22)
[2019-01-23] MEDS: ASPIRIN 81 MG TAB PO SCH (09:22)
[2019-01-23] MEDS: ISOSORBIDE DINITRATE 5 MG TAB PO SCH ×3 (09:22→21:36)
[2019-01-23] MEDS: POLYETHYLENE GLYCOL 17 GM PACKET PO SCH (09:23)
[2019-01-23] MEDS: CALCIUM ACETATE 667 MG CAP PO SCH ×3 (09:23→18:05)
[2019-01-23] MEDS: HEPARIN 5,000 UNIT/1 ML VIAL SC SCH ×2 (09:29→21:47)
--- NOTE | 2019-01-23 10:39 | CONS ---
Assessment/Plan Assessment/Plan Assessment/Plan (Daily) 1 acute on chronic renal disease. CKD IV On last admission in 10/2018, already creatinine was in 3.59 and then had peaked up to 4.2 and on discharge was 2.76; however on this admission was 3.39. It could be very well because of cardiorenal disease on CKD vs ATN The patient has history of hepatitis C, could be possibility of some glomerulonephritis as well.however UA no active sediment on admission Pt has been non compliant with meds Cr comtinue to uptrend likley ATN, Renal doppler was neg for KAYLA Pt had BP DROPS from 180>90s now further hypotensive first UA neg for any active sediment now UA shows some RBC s/p trauma Cr had been downtrended yesterday as it had peaked to 5.28 > 4.8>4.38 , patient had CKD 4 and now has insults likely secondary to cardiorenal/ATN worsened with hypotension Chest xRay worseining rt sided effusion s/p thoracentesis UPC 0.38 3. History of proteinuria. 4. Hypertension, controlled 5. History of hepatitis C. 6 Fe def anemia 7 NSTEMI with EKG changes and +Trop, troponins continue to rise 8 right-sided pleural effusion 9 altered mental status questionable metabolic encephalopathy/drugs Plan - Keep even, lasix prn - repeat Chest Xray -? Pul consult for loculated effusion -Spoke to the family at bedside on 01/18 and also the patient in case patient since patient needs coronary angiography patient is at very high risk of contrast nephropathy will monitor creatinine /Electrolytes and UOP 24-48 hours after as she already has CKD stage IV and and will monitor for 24-48 hours after angiography to see for hemodialysis. Family and the patient had been refusing hemodialysis -avoid bp drops To increase renal perfusion - renally dose all meds - avoid nephrotoxins Consultation Date/Type/Reason Admit Date/Time Jan 12, 2019 at 12:23 Initial Consult Date Requesting Provider: KATHY ZARAGOZA MD Date/Time of Note DATE: 01/23/19 TIME: 10:35 24 HR Interval Summary Free Text/Dictation No new events. Patient had been refusing coronary angiography due to the risk of being on hemodialysis Oxygen sats are stable Exam/Review of Systems Exam Vitals Vital Signs Date Temp Pulse Resp B/P (MAP) Pulse Ox O2 O2 Flow FiO2 Time Delivery Rate 2/25/19 70 08:01 01/23/19 97.4 16 137/87 99 07:26 (104) 01/23/19 3.0 32 02:51 01/22/19 Nasal 20:00 Cannula Intake and Output 01/22/19 01/22/19 01/23/19 1515:00 23:00 07:00 IntakeIntake Total 600 ml OutputOutput Total 60 ml BalanceBalance 540 ml Exam Exam She is lethargic on 2 L nasal cannula Respiratory: decreased breath sounds on rt Cardiovascular: regular rate and rhythm Gastrointestinal: soft, bowel sounds (+) Extremities: No edema Results Result Diagram: 01/23/1952701/23/19527 Results 24hrs Laboratory Tests Test 01/23/19 05:28 White Blood Count 5.7 Red Blood Count 3.74 L Hemoglobin 8.9 L Hematocrit 30.2 L Mean Corpuscular Volume 80.7 L Mean Corpuscular Hemoglobin 23.8 L Mean Corpuscular Hemoglobin Concent 29.5 L Red Cell Distribution Width 20.1 H Platelet Count 241 Mean Platelet Volume 10.1 Immature Granulocytes % 0.500 H Neutrophils % 66.8 Lymphocytes % 18.6 Monocytes % 11.5 H Eosinophils % 1.9 Basophils % 0.7 Nucleated Red Blood Cells % 0.5 H Immature Granulocytes # 0.030 Neutrophils # 3.8 Lymphocytes # 1.1 Monocytes # 0.7 Eosinophils # 0.1 Basophils # 0.0 Nucleated Red Blood Cells # 0.0 Sodium Level 142 Potassium Level 4.5 Chloride Level 113 H Carbon Dioxide Level 22 Anion Gap 7 Blood Urea Nitrogen 70 H Creatinine 4.30 H Est Glomerular Filtrat Rate mL/min 13 L Glucose Level 89 Calcium Level 8.7 Phosphorus Level 5.1 H Magnesium Level 2.6 H Medications Medication Current Medications IV Flush (NS 3 ml) 3 ml PER PROTOCOL IV ; Start 01/12/19 at 13:30 Ondansetron HCl (Zofran Inj) 4 mg Q6H PRN IV NAUSEA/VOMITING Last administered on 01/22/19at 07:58; Admin Dose 4 MG; Start 01/12/19 at 13:30 Acetaminophen (Tylenol Tab) 650 mg Q6H PRN PO .PAIN 1-3 OR TEMP Last administered on 01/19/19at 21:05; Admin Dose 650 MG; Start 01/12/19 at 13:30 Docusate Sodium (Colace) 100 mg Q12H PRN PO .CONSTIPATION; Start 01/12/19 at 13:30 Magnesium Hydroxide (Milk Of Mag) 30 ml DAILY PRN PO .CONSTIPATION; Start 01/12/19 at 13:30 Hydralazine HCl (Apresoline) 10 mg Q6H PRN IV ELEVATED BLOOD PRESSURE; Start 01/12/19 at 13:30 Nitroglycerin (Nitroglycerin (Sl Tab) 0.4 Mg) 1 tab Q5M PRN SL ANGINA Last administered on 01/18/19 08:00; Admin Dose 1 TAB; Start 01/12/19 at 13:30 Carvedilol (Coreg) 25 mg BID PO Last administered on 01/23/19 09:22; Admin Dose 25 MG; Start 01/12/19 at 21:00 Calcium Acetate (Phoslo) 667 mg WITH MEALS PO Last administered on 01/23/19 09:23; Admin Dose 667 MG; Start 01/13/19 at 17:55 Polyethylene Glycol (Miralax) 17 gm DAILY PO Last administered on 01/23/19 09:23; Admin Dose 17 GM; Start 01/17/19 at 14:00 Morphine Sulfate (morphine) 6 mg Q4H PRN PO SEVERE PAIN LEVEL 7-10 Last administered on 01/22/19 22:55; Admin Dose 6 MG; Start 01/17/19 at 22:30 Aspirin (Aspirin) 81 mg DAILY PO Last administered on 01/23/19 09:22; Admin Dose 81 MG; Start 01/18/19 at 09:00 Docusate Sodium (Colace) 100 mg BID PO Last administered on 01/23/19 09:22; Admin Dose 100 MG; Start 01/18/19 at 09:00 Pantoprazole (Protonix Tab) 40 mg DAILY@0600 PO Last administered on 01/23/19 06:32; Admin Dose 40 MG; Start 01/18/19 at 06:00 Albuterol/ Ipratropium (Duoneb) 3 ml Q6 PRN INH WHEEZING AND SOB; Start 01/18/19 at 04:00 Atorvastatin Calcium (Lipitor) 80 mg HS PO Last administered on 01/22/19 20:50; Admin Dose 80 MG; Start 01/18/19 at 21:00 Clopidogrel Bisulfate (plaVIX) 75 mg DAILY PO Last administered on 01/23/19 09:22; Admin Dose 75 MG; Start 01/19/19 at 19:00 Heparin Sodium (Porcine) (Heparin (5000 Units/1ml)) 5,000 unit BID SC Last administered on 01/23/19 09:29; Admin Dose 5,000 UNIT; Start 01/21/19 at 21:00 Isosorbide Dinitrate (Isordil) 5 mg TID PO Last administered on 01/23/19 09:22; Admin Dose 5 MG; Start 01/22/19 at 13:00 JESSICA NOLAN MD Jan 23, 2019 10:39
--- NOTE | 2019-01-23 11:14 | PN ---
Date/Time of Note Date/Time of Note DATE: 01/23/19 TIME: 10:56 Assessment/Plan VTE Prophylaxis Risk score (from [facility])>0 risk: 3 SCD applied (from [facility]): No SCD contraindicated: other Pharmacological prophylaxis: heparin Lines/Catheters IV C[facility]ter Type (from [facility]): Saline Lock Urinary Cath still in place: No Assessment/Plan Hospital Course S: Per nursing staff and per records, patient and her renal ultrasound performed this morning, results still pending. Seen by renal team yesterday. No acute events overnight otherwise per O: VS - see below PHYSICAL EXAMINATION: GENERAL: lying in bed, no acute distress. HEENT: Pupils are equal, round, reactive to light. Extraocular muscles are intact. NECK: Supple. No thyromegaly. LUNGS: Slightly distant breath sounds bilaterally. CARDIOVASCULAR: S1, S2 heard. No rubs or gallops. ABDOMEN: Soft, nontender, nondistended. Normal bowel sounds. No rebound or guarding. MUSCULOSKELETAL: Trace pitting edema bilateral lower extremities to the mid calves. NEUROLOGIC: No focal deficits. 2D echo January 12, 2019: Conclusions: Normal left ventricular systolic function. Normal left ventricular cavity size. Severe concentric left ventricular hypertrophy. Ejection fraction is visually estimated at 65 %. Tissue Doppler/Mitral Doppler indices are consistent with impaired relaxation (Stage I diastolic dysfunction). Normal right ventricular size. Normal right ventricular systolic function. There is mild enlargement of left atrium. The right atrium is normal in size. Mild mitral valve regurgitation. No significant aortic stenosis or insufficiency. Estimated peak PA systolic pressure 31 mmHg. There is mild tricuspid regurgitation. Normal pericardium with no significant pericardial effusion. Assessment/Plan: 63-year-old homeless woman with prior history of chronic kidney disease, questionable chronic obstructive pulmonary disease, congestive heart failure, hypertension, bilateral renal artery stenosis, hepatitis C and anemia who presents with acute CHF exacerbation and HERSON. # Pulmonary edema- resolved. Likely secondary to CHF exacerbation- s/p IV diuresis- Breathing comfortably on room air now- CXR shows possible "diffuse infiltrates". But no fever, WBC to suggest infection. -Monitor, for now continue current cardiac medications Isordil, Coreg -Follow-up cardiology recommendations, will reconsult PT as well # NSTEMI-patient found with elevated trops, TWIs in hospital early AM on 01/18- Etiology possibly cocaine, as utox positive for cocaine, per cardiology. Due to patient's history of poor compliance patient was treated medically with heparin gtt x 48 hours. Also patient refused cardiac cath worried it will make her dialysis dependent. - For now continue Coreg, Isordil, aspirin and plavix -medical treatment at this time - Follow-up cardiology recommendations # Delerium- Patient is at high risk of delerium with long hospital stay, frequent benzodiazepines - continue to hold benzos and other sedating medications now - In case of severe agitation not responsive to verbal deescalation with consider haloperidol # Pleural effusion- pt had a right-sided thoracentesis performed January 20 for right-sided pleural effusion with 1 L removed at that time.Now CXR shows loculation of that effusion. (Of note, patient also had R pleural effusion with thoracentesis in 10/2018. Was transudative by protein, no serum LDH to compare it to. Culture and pathology negative) - Now breathing comfortably on room air, continue monitor for now # Acute on CKD - Per renal team, on last admission in 10/2018 already creatinine was in 3.59 and then had peaked up to 4.2 and on discharge was 2.76; however on this admission was 3.39. Per renal team, it could be very well because of cardiorenal disease on CKD vs ATN The patient has history of hepatitis C, could be possibility of some glomerulonephritis as well.however UA no active sediment on admission Pt has been non compliant with meds. Renal doppler this admission was neg for KAYLA (previous ultrasound back in October 2018 showed signs of renal artery stenosis?, but again negative this admission) -Continue phosphate binder, monitor BUN and creatinine levels very carefully -Monitor ins and outs -Follow-up renal recommendations - Currently patient declines dialysis. # History of hypertension. She presented at the outside hospital with mild hypertensive urgency, but this has resolved now. - Continue BP meds. Currently borderline hypotensive. #Homelessness - Social work consult -follow-up the recommendation DVT: heparin subQ GI: PPI Dispo: Likely will require subacute care. Patient is homeless and would benefit from temporary housing if she qualifies-Case management consulted for this Result Diagram: 01/23/1952701/23/19527 Results 24hrs Laboratory Tests Test 01/23/19 05:28 White Blood Count 5.7 Red Blood Count 3.74 L Hemoglobin 8.9 L Hematocrit 30.2 L Mean Corpuscular Volume 80.7 L Mean Corpuscular Hemoglobin 23.8 L Mean Corpuscular Hemoglobin Concent 29.5 L Red Cell Distribution Width 20.1 H Platelet Count 241 Mean Platelet Volume 10.1 Immature Granulocytes % 0.500 H Neutrophils % 66.8 Lymphocytes % 18.6 Monocytes % 11.5 H Eosinophils % 1.9 Basophils % 0.7 Nucleated Red Blood Cells % 0.5 H Immature Granulocytes # 0.030 Neutrophils # 3.8 Lymphocytes # 1.1 Monocytes # 0.7 Eosinophils # 0.1 Basophils # 0.0 Nucleated Red Blood Cells # 0.0 Sodium Level 142 Potassium Level 4.5 Chloride Level 113 H Carbon Dioxide Level 22 Anion Gap 7 Blood Urea Nitrogen 70 H Creatinine 4.30 H Est Glomerular Filtrat Rate mL/min 13 L Glucose Level 89 Calcium Level 8.7 Phosphorus Level 5.1 H Magnesium Level 2.6 H Exam/Review of Systems Exam Vitals Vital Signs Date Temp Pulse Resp B/P (MAP) Pulse Ox O2 O2 Flow FiO2 Time Delivery Rate 01/23/19 70 08:01 01/23/19 97.4 16 137/87 99 07:26 (104) 01/23/19 3.0 32 02:51 01/22/19 Nasal 20:00 Cannula Intake and Output 01/22/19 01/22/19 01/23/19 1414:59 22:59 06:59 IntakeIntake Total 600 ml OutputOutput Total 60 ml BalanceBalance 540 ml Results Results 24hrs Laboratory Tests Test 01/23/19 05:28 White Blood Count 5.7 Red Blood Count 3.74 L Hemoglobin 8.9 L Hematocrit 30.2 L Mean Corpuscular Volume 80.7 L Mean Corpuscular Hemoglobin 23.8 L Mean Corpuscular Hemoglobin Concent 29.5 L Red Cell Distribution Width 20.1 H Platelet Count 241 Mean Platelet Volume 10.1 Immature Granulocytes % 0.500 H Neutrophils % 66.8 Lymphocytes % 18.6 Monocytes % 11.5 H Eosinophils % 1.9 Basophils % 0.7 Nucleated Red Blood Cells % 0.5 H Immature Granulocytes # 0.030 Neutrophils # 3.8 Lymphocytes # 1.1 Monocytes # 0.7 Eosinophils # 0.1 Basophils # 0.0 Nucleated Red Blood Cells # 0.0 Sodium Level 142 Potassium Level 4.5 Chloride Level 113 H Carbon Dioxide Level 22 Anion Gap 7 Blood Urea Nitrogen 70 H Creatinine 4.30 H Est Glomerular Filtrat Rate mL/min 13 L Glucose Level 89 Calcium Level 8.7 Phosphorus Level 5.1 H Magnesium Level 2.6 H Medications Medication Current Medications IV Flush (NS 3 ml) 3 ml PER PROTOCOL IV ; Start 01/12/19 at 13:30 Ondansetron HCl (Zofran Inj) 4 mg Q6H PRN IV NAUSEA/VOMITING Last administered on 01/22/19 07:58; Admin Dose 4 MG; Start 01/12/19 at 13:30 Acetaminophen (Tylenol Tab) 650 mg Q6H PRN PO .PAIN 1-3 OR TEMP Last administered on 01/19/19 21:05; Admin Dose 650 MG; Start 01/12/19 at 13:30 Docusate Sodium (Colace) 100 mg Q12H PRN PO .CONSTIPATION; Start 01/12/19 at 13:30 Magnesium Hydroxide (Milk Of Mag) 30 ml DAILY PRN PO .CONSTIPATION; Start 01/12/19 at 13:30 Hydralazine HCl (Apresoline) 10 mg Q6H PRN IV ELEVATED BLOOD PRESSURE; Start 01/12/19 at 13:30 Nitroglycerin (Nitroglycerin (Sl Tab) 0.4 Mg) 1 tab Q5M PRN SL ANGINA Last administered on 01/18/19 08:00; Admin Dose 1 TAB; Start 01/12/19 at 13:30 Carvedilol (Coreg) 25 mg BID PO Last administered on 01/23/19 09:22; Admin Dose 25 MG; Start 01/12/19 at 21:00 Calcium Acetate (Phoslo) 667 mg WITH MEALS PO Last administered on 01/23/19 09:23; Admin Dose 667 MG; Start 01/13/19 at 17:55 Polyethylene Glycol (Miralax) 17 gm DAILY PO Last administered on 01/23/19 09:23; Admin Dose 17 GM; Start 01/17/19 at 14:00 Morphine Sulfate (morphine) 6 mg Q4H PRN PO SEVERE PAIN LEVEL 7-10 Last administered on 01/22/19 22:55; Admin Dose 6 MG; Start 01/17/19 at 22:30 Aspirin (Aspirin) 81 mg DAILY PO Last administered on 01/23/19 09:22; Admin Dose 81 MG; Start 01/18/19 at 09:00 Docusate Sodium (Colace) 100 mg BID PO Last administered on 01/23/19 09:22; Admin Dose 100 MG; Start 01/18/19 at 09:00 Pantoprazole (Protonix Tab) 40 mg DAILY@0600 PO Last administered on 01/23/19 06:32; Admin Dose 40 MG; Start 01/18/19 at 06:00 Albuterol/ Ipratropium (Duoneb) 3 ml Q6 PRN INH WHEEZING AND SOB; Start 01/18/19 at 04:00 Atorvastatin Calcium (Lipitor) 80 mg HS PO Last administered on 01/22/19 20:50; Admin Dose 80 MG; Start 01/18/19 at 21:00 Clopidogrel Bisulfate (plaVIX) 75 mg DAILY PO Last administered on 01/23/19 09:22; Admin Dose 75 MG; Start 01/19/19 at 19:00 Heparin Sodium (Porcine) (Heparin (5000 Units/1ml)) 5,000 unit BID SC Last administered on 01/23/19 09:29; Admin Dose 5,000 UNIT; Start 01/21/19 at 21:00 Isosorbide Dinitrate (Isordil) 5 mg TID PO Last administered on 01/23/19 09:22; Admin Dose 5 MG; Start 01/22/19 at 13:00 MICHAEL STARR Jan 23, 2019 11:06
[2019-01-23] MEDS: ONDANSETRON 4 MG INJ IV PRN (21:31)
[2019-01-23] MEDS: morphine LIQ (10 MG/5 ML) CUP PO PRN (21:35)
[2019-01-23] MEDS: ATORVASTATIN 80 MG TAB PO SCH (21:35)
[2019-01-24] VITALS (14 sets, daily range): BP systolic 105–182; BP diastolic 72–111; PULSE 67–77; RESP 16–17
[2019-01-24] MEDS ORDERED: HALOPERIDOL 5 MG INJ IM ONE ×2 (00:30→22:30)
[2019-01-24] MEDS: PANTOPRAZOLE (EC) 40 MG TAB PO SCH (05:20)
[2019-01-24] MEDS: morphine LIQ (10 MG/5 ML) CUP PO PRN (05:20)
[2019-01-24] MEDS: CLOPIDOGREL 75 MG TAB PO SCH (08:25)
[2019-01-24] MEDS: ISOSORBIDE DINITRATE 5 MG TAB PO SCH ×3 (08:25→20:02)
[2019-01-24] MEDS: ASPIRIN 81 MG TAB PO SCH (08:25)
[2019-01-24] MEDS: CALCIUM ACETATE 667 MG CAP PO SCH ×3 (08:25→17:56)
[2019-01-24] MEDS: DOCUSATE SODIUM 100 MG CAP PO SCH ×2 (08:25→20:02)
[2019-01-24] MEDS: POLYETHYLENE GLYCOL 17 GM PACKET PO SCH (08:26)
[2019-01-24] MEDS: HEPARIN 5,000 UNIT/1 ML VIAL SC SCH ×2 (08:31→20:10)
--- NOTE | 2019-01-24 12:05 | PN ---
Date/Time of Note Date/Time of Note DATE: 01/24/19 TIME: 12:03 Assessment/Plan VTE Prophylaxis Risk score (from Ns)>0 risk: 5 SCD applied (from Ns): No SCD contraindicated: other Pharmacological prophylaxis: heparin Lines/Catheters IV C[facility]ter Type [facility]from [facility] Urinary Cath still in place: No Assessment/Plan Hospital Course S: Patient had some agitation last night, required intramuscular Haldol for that, presently calm. Seen by PT and OT yesterday as well as renal team. O: VS - see below PHYSICAL EXAMINATION: GENERAL: lying in bed, no acute distress. HEENT: Pupils are equal, round, reactive to light. Extraocular muscles are intact. NECK: Supple. No thyromegaly. LUNGS: Slightly distant breath sounds bilaterally. CARDIOVASCULAR: S1, S2 heard. No rubs or gallops. ABDOMEN: Soft, nontender, nondistended. Normal bowel sounds. No rebound or guarding. MUSCULOSKELETAL: Trace pitting edema bilateral lower extremities to the mid kurt ves. NEUROLOGIC: No focal deficits. 2D echo January 12, 2019: Conclusions: Normal left ventricular systolic function. Normal left ventricular cavity size. Severe concentric left ventricular hypertrophy. Ejection fraction is visually estimated at 65 %. Tissue Doppler/Mitral Doppler indices are consistent with impaired relaxation (Stage I diastolic dysfunction). Normal right ventricular size. Normal right ventricular systolic function. There is mild enlargement of left atrium. The right atrium is normal in size. Mild mitral valve regurgitation. No significant aortic stenosis or insufficiency. Estimated peak PA systolic pressure 31 mmHg. There is mild tricuspid regurgitation. Normal pericardium with no significant pericardial effusion. Assessment/Plan: 63-year-old homeless woman with prior history of chronic kidney disease, questionable chronic obstructive pulmonary disease, congestive heart failure, hypertension, bilateral renal artery stenosis, hepatitis C and anemia who presents with acute CHF exacerbation and HERSON. # Pulmonary edema- resolved. Likely secondary to CHF exacerbation- s/p IV diuresis-now off diuretics, breathing better now -Monitor, for now continue current cardiac medications Isordil, Coreg -Follow-up cardiology recommendations, continue OT and PT as well # NSTEMI-patient found with elevated trops, TWIs in hospital early AM on 01/18- Etiology possibly cocaine, as utox positive for cocaine, per cardiology. Due to patient's history of poor compliance patient was treated medically with heparin gtt x 48 hours. Also patient refused cardiac cath worried it will make her dialysis dependent. - For now continue Coreg, Isordil, aspirin and plavix -medical treatment at this time - Follow-up cardiology recommendations # Delerium- Patient is at high risk of delerium with long hospital stay, frequent benzodiazepines - continue to hold benzos and other sedating medications now - In case of severe agitation not responsive to verbal deescalation with consider haloperidol # Pleural effusion- pt had a right-sided thoracentesis performed January 20 for right-sided pleural effusion with 1 L removed at that time.Now CXR shows loculation of that effusion. (Of note, patient also had R pleural effusion with thoracentesis in 10/2018. Was transudative by protein, no serum LDH to compare it to. Culture and pathology negative) - Now breathing comfortably on room air, continue monitor for now # Acute on CKD - Per renal team, on last admission in 10/2018 already creatinine was in 3.59 and then had peaked up to 4.2 and on discharge was 2.76; however on this admission was 3.39. Per renal team, it could be very well because of cardiorenal disease on CKD vs ATN The patient has history of hepatitis C, could be possibility of some glomerulonephritis as well.however UA no active sediment on admission Pt has been non compliant with meds. Renal doppler this admission was neg for KAYLA (previous ultrasound back in October 2018 showed signs of renal artery stenosis?, but again negative this admission) -Continue phosphate binder, monitor BUN and creatinine levels very carefully -Monitor ins and outs -Follow-up renal recommendations -Currently patient declines dialysis. # History of hypertension. She presented at the outside hospital with mild hypertensive urgency, but this has resolved now. - Continue BP meds. Currently borderline hypotensive. #Homelessness - Social work consult -follow-up the recommendation DVT: heparin subQ GI: PPI Dispo: Likely will require subacute care versus SNF. -Case management consulted for this, presently working on this along with possible recuperative care placement. Result Diagram: 01/24/19 0554 01/24/19 0554 Results 24hrs Laboratory Tests Test 01/24/19 05:54 01/24/19 11:19 White Blood Count 4.2 #L Red Blood Count 3.81 L Hemoglobin 9.2 L Hematocrit 30.8 L Mean Corpuscular Volume 80.8 L Mean Corpuscular Hemoglobin 24.1 L Mean Corpuscular Hemoglobin Concent 29.9 L Red Cell Distribution Width 19.9 H Platelet Count 223 Mean Platelet Volume 9.8 Immature Granulocytes % 0.500 H Neutrophils % 66.2 Lymphocytes % 19.3 Monocytes % 11.6 H Eosinophils % 1.7 Basophils % 0.7 Nucleated Red Blood Cells % 0.0 Immature Granulocytes # 0.020 Neutrophils # 2.8 Lymphocytes # 0.8 Monocytes # 0.5 Eosinophils # 0.1 Basophils # 0.0 Nucleated Red Blood Cells # 0.0 Sodium Level 146 H Potassium Level 4.4 Chloride Level 113 H Carbon Dioxide Level 23 Anion Gap 10 Blood Urea Nitrogen 64 H Creatinine 3.89 H Est Glomerular Filtrat Rate mL/min 14 L Glucose Level 84 Calcium Level 9.1 Lab Scanned Report REFERENCE LAB Exam/Review of Systems Exam Vitals Vital Signs Date Temp Pulse Resp B/P (MAP) Pulse Ox O2 O2 Flow FiO2 Time Delivery Rate 01/24/19 97.4 67 17 159/102 94 11:22 (121) 01/24/19 Nasal 3.0 08:00 Cannula 01/23/19 32 14:39 Intake and Output 01/23/19 01/23/19 01/24/19 1414:59 22:59 06:59 IntakeIntake Total 120 ml 700 ml 440 ml OutputOutput Total 200 ml BalanceBalance 120 ml 700 ml 240 ml Results Results 24hrs Laboratory Tests Test 01/24/19 05:54 01/24/19 11:19 White Blood Count 4.2 #L Red Blood Count 3.81 L Hemoglobin 9.2 L Hematocrit 30.8 L Mean Corpuscular Volume 80.8 L Mean Corpuscular Hemoglobin 24.1 L Mean Corpuscular Hemoglobin Concent 29.9 L Red Cell Distribution Width 19.9 H Platelet Count 223 Mean Platelet Volume 9.8 Immature Granulocytes % 0.500 H Neutrophils % 66.2 Lymphocytes % 19.3 Monocytes % 11.6 H Eosinophils % 1.7 Basophils % 0.7 Nucleated Red Blood Cells % 0.0 Immature Granulocytes # 0.020 Neutrophils # 2.8 Lymphocytes # 0.8 Monocytes # 0.5 Eosinophils # 0.1 Basophils # 0.0 Nucleated Red Blood Cells # 0.0 Sodium Level 146 H Potassium Level 4.4 Chloride Level 113 H Carbon Dioxide Level 23 Anion Gap 10 Blood Urea Nitrogen 64 H Creatinine 3.89 H Est Glomerular Filtrat Rate mL/min 14 L Glucose Level 84 Calcium Level 9.1 Lab Scanned Report REFERENCE LAB Medications Medication Current Medications IV Flush (NS 3 ml) 3 ml PER PROTOCOL IV ; Start 01/12/19 at 13:30 Ondansetron HCl (Zofran Inj) 4 mg Q6H PRN IV NAUSEA/VOMITING Last administered on 01/23/19 21:31; Admin Dose 4 MG; Start 01/12/19 at 13:30 Acetaminophen (Tylenol Tab) 650 mg Q6H PRN PO .PAIN 1-3 OR TEMP Last administered on 01/19/19 21:05; Admin Dose 650 MG; Start 01/12/19 at 13:30 Docusate Sodium (Colace) 100 mg Q12H PRN PO .CONSTIPATION; Start 01/12/19 at 13:30 Magnesium Hydroxide (Milk Of Mag) 30 ml DAILY PRN PO .CONSTIPATION; Start 01/12/19 at 13:30 Hydralazine HCl (Apresoline) 10 mg Q6H PRN IV ELEVATED BLOOD PRESSURE; Start 01/12/19 at 13:30 Nitroglycerin (Nitroglycerin (Sl Tab) 0.4 Mg) 1 tab Q5M PRN SL ANGINA Last administered on 01/18/19 08:00; Admin Dose 1 TAB; Start 01/12/19 at 13:30 Carvedilol (Coreg) 25 mg BID PO Last administered on 01/24/19 08:25; Admin Dose 25 MG; Start 01/12/19 at 21:00 Calcium Acetate (Phoslo) 667 mg WITH MEALS PO Last administered on 01/24/19 08:25; Admin Dose 667 MG; Start 01/13/19 at 17:55 Polyethylene Glycol (Miralax) 17 gm DAILY PO Last administered on 01/24/19 08:26; Admin Dose 17 GM; Start 01/17/19 at 14:00 Morphine Sulfate (morphine) 6 mg Q4H PRN PO SEVERE PAIN LEVEL 7-10 Last administered on 01/24/19 05:20; Admin Dose 6 MG; Start 01/17/19 at 22:30 Aspirin (Aspirin) 81 mg DAILY PO Last administered on 01/24/19 08:25; Admin Dose 81 MG; Start 01/18/19 at 09:00 Docusate Sodium (Colace) 100 mg BID PO Last administered on 01/24/19 08:25; Admin Dose 100 MG; Start 01/18/19 at 09:00 Pantoprazole (Protonix Tab) 40 mg DAILY@0600 PO Last administered on 01/24/19 05:20; Admin Dose 40 MG; Start 01/18/19 at 06:00 Albuterol/ Ipratropium (Duoneb) 3 ml Q6 PRN INH WHEEZING AND SOB; Start 01/18/19 at 04:00 Atorvastatin Calcium (Lipitor) 80 mg HS PO Last administered on 01/23/19 21:35; Admin Dose 80 MG; Start 01/18/19 at 21:00 Clopidogrel Bisulfate (plaVIX) 75 mg DAILY PO Last administered on 01/24/19 08:25; Admin Dose 75 MG; Start 01/19/19 at 19:00 Heparin Sodium (Porcine) (Heparin (5000 Units/1ml)) 5,000 unit BID SC Last administered on 01/24/19 08:31; Admin Dose 5,000 UNIT; Start 01/21/19 at 21:00 Isosorbide Dinitrate (Isordil) 5 mg TID PO Last administered on 01/24/19 08:25; Admin Dose 5 MG; Start 01/22/19 at 13:00 MICHAEL STARR Jan 24, 2019 12:05
--- NOTE | 2019-01-24 13:14 | CONS ---
Assessment/Plan Assessment/Plan Assessment/Plan (Daily) acute on chronic renal disease. CKD IV On last admission in 10/2018, already creatinine was in 3.59 and then had peaked up to 4.2 and on discharge was 2.76; however on this admission was 3.39. It could be very well because of cardiorenal disease on CKD vs ATN The patient has history of hepatitis C, could be possibility of some glomerulonephritis as well.however UA no active sediment on admission Pt has been non compliant with meds Cr comtinue to uptrend likley ATN, Renal doppler was neg for KAYLA Pt had BP DROPS from 180>90s now further hypotensive first UA neg for any active sediment now UA shows some RBC s/p trauma Cr had been downtrended yesterday as it had peaked to 5.28 > 4.8>4.38 > 3.89 almost near baseline, patient had CKD 4 and now has insults likely secondary to cardiorenal/ATN worsened with hypotension Chest xRay worseining rt sided effusion s/p thoracentesis UPC 0.38 3. History of proteinuria. 4. Hypertension, controlled 5. History of hepatitis C. 6 Fe def anemia 7 NSTEMI with EKG changes and +Trop, troponins continue to rise 8 right-sided pleural effusion 9 altered mental status questionable metabolic encephalopathy/drugs Plan - Keep even, lasix prn - repeat Chest Xray loculated with right-sided effusion consider pulmonary evaluation, pending fluid studies patient will likely need repeat thoracentesis - Monitor I's and O's -Spoke to the family at bedside on 01/18 and also the patient in case patient since patient needs coronary angiography patient is at very high risk of contrast nephropathy will monitor creatinine /Electrolytes and UOP 24-48 hours after as she already has CKD stage IV and and will monitor for 24-[address] angiography to see for hemodialysis. Family and the patient had been refusing hemodialysis -avoid bp drops To increase renal perfusion - renally dose all meds - avoid nephrotoxins Consultation Date/Type/Reason Admit Date/Time Jan 12, 2019 at 12:23 Initial Consult Date Requesting Provider: KATHY ZARAGOZA MD Date/Time of Note DATE: 01/24/19 TIME: 13:12 24 HR Interval Summary Free Text/Dictation And said that she is making urine currently not on any oxygen Creatinine trending down Exam/Review of Systems Exam Vitals Vital Signs Date Temp Pulse Resp B/P (MAP) Pulse Ox O2 O2 Flow FiO2 Time Delivery Rate 01/24/19 97.4 67 17 159/102 94 11:22 (121) 01/24/19 Nasal 3.0 08:00 Cannula 01/23/19 32 14:39 Intake and Output 01/23/19 01/23/19 01/24/19 1515:00 23:00 07:00 IntakeIntake Total 120 ml 700 ml 440 ml OutputOutput Total 200 ml BalanceBalance 120 ml 700 ml 240 ml Exam Oxygen Respiratory: decreased breath sounds on rt Cardiovascular: regular rate and rhythm Gastrointestinal: soft, bowel sounds (+) Extremities: No edema Results Result Diagram: 01/24/19 0554 01/24/19 0554 Results 24hrs Laboratory Tests Test 01/24/19 05:54 01/24/19 11:19 White Blood Count 4.2 #L Red Blood Count 3.81 L Hemoglobin 9.2 L Hematocrit 30.8 L Mean Corpuscular Volume 80.8 L Mean Corpuscular Hemoglobin 24.1 L Mean Corpuscular Hemoglobin Concent 29.9 L Red Cell Distribution Width 19.9 H Platelet Count 223 Mean Platelet Volume 9.8 Immature Granulocytes % 0.500 H Neutrophils % 66.2 Lymphocytes % 19.3 Monocytes % 11.6 H Eosinophils % 1.7 Basophils % 0.7 Nucleated Red Blood Cells % 0.0 Immature Granulocytes # 0.020 Neutrophils # 2.8 Lymphocytes # 0.8 Monocytes # 0.5 Eosinophils # 0.1 Basophils # 0.0 Nucleated Red Blood Cells # 0.0 Sodium Level 146 H Potassium Level 4.4 Chloride Level 113 H Carbon Dioxide Level 23 Anion Gap 10 Blood Urea Nitrogen 64 H Creatinine 3.89 H Est Glomerular Filtrat Rate mL/min 14 L Glucose Level 84 Calcium Level 9.1 Lab Scanned Report REFERENCE LAB Medications Medication Current Medications IV Flush (NS 3 ml) 3 ml PER PROTOCOL IV ; Start 01/12/19 at 13:30 Ondansetron HCl (Zofran Inj) 4 mg Q6H PRN IV NAUSEA/VOMITING Last administered on 01/23/19at 21:31; Admin Dose 4 MG; Start 01/12/19 at 13:30 Acetaminophen (Tylenol Tab) 650 mg Q6H PRN PO .PAIN 1-3 OR TEMP Last administered on 01/19/19 21:05; Admin Dose 650 MG; Start 01/12/19 at 13:30 Docusate Sodium (Colace) 100 mg Q12H PRN PO .CONSTIPATION; Start 01/12/19 at 13:30 Magnesium Hydroxide (Milk Of Mag) 30 ml DAILY PRN PO .CONSTIPATION; Start 01/12/19 at 13:30 Hydralazine HCl (Apresoline) 10 mg Q6H PRN IV ELEVATED BLOOD PRESSURE; Start 01/12/19 at 13:30 Nitroglycerin (Nitroglycerin (Sl Tab) 0.4 Mg) 1 tab Q5M PRN SL ANGINA Last administered on 01/18/19 08:00; Admin Dose 1 TAB; Start 01/12/19 at 13:30 Carvedilol (Coreg) 25 mg BID PO Last administered on 01/24/19 08:25; Admin Dose 25 MG; Start 01/12/19 at 21:00 Calcium Acetate (Phoslo) 667 mg WITH MEALS PO Last administered on 01/24/19 13:04; Admin Dose 667 MG; Start 01/13/19 at 17:55 Polyethylene Glycol (Miralax) 17 gm DAILY PO Last administered on 01/24/19 08:26; Admin Dose 17 GM; Start 01/17/19 at 14:00 Morphine Sulfate (morphine) 6 mg Q4H PRN PO SEVERE PAIN LEVEL 7-10 Last administered on 01/24/19 05:20; Admin Dose 6 MG; Start 01/17/19 at 22:30 Aspirin (Aspirin) 81 mg DAILY PO Last administered on 01/24/19 08:25; Admin Dose 81 MG; Start 01/18/19 at 09:00 Docusate Sodium (Colace) 100 mg BID PO Last administered on 01/24/19 08:25; Admin Dose 100 MG; Start 01/18/19 at 09:00 Pantoprazole (Protonix Tab) 40 mg DAILY@0600 PO Last administered on 01/24/19 05:20; Admin Dose 40 MG; Start 01/18/19 at 06:00 Albuterol/ Ipratropium (Duoneb) 3 ml Q6 PRN INH WHEEZING AND SOB; Start 01/18/19 at 04:00 Atorvastatin Calcium (Lipitor) 80 mg HS PO Last administered on 01/23/19 21:35; Admin Dose 80 MG; Start 01/18/19 at 21:00 Clopidogrel Bisulfate (plaVIX) 75 mg DAILY PO Last administered on 01/24/19 08:25; Admin Dose 75 MG; Start 01/19/19 at 19:00 Heparin Sodium (Porcine) (Heparin (5000 Units/1ml)) 5,000 unit BID SC Last administered on 01/24/19 08:31; Admin Dose 5,000 UNIT; Start 01/21/19 at 21:00 Isosorbide Dinitrate (Isordil) 5 mg TID PO Last administered on 01/24/19 13:05; Admin Dose 5 MG; Start 01/22/19 at 13:00 JESSICA NOLAN MD Jan 24, 2019 13:14
[2019-01-24] MEDS: ATORVASTATIN 80 MG TAB PO SCH (20:02)
[2019-01-24] MEDS: hydrALAzine 20 MG INJ IV PRN (22:06)
[2019-01-25] VITALS (13 sets, daily range): BP systolic 126–168; BP diastolic 76–104; PULSE 69–79; RESP 16–20
[2019-01-25] MEDS: PANTOPRAZOLE (EC) 40 MG TAB PO SCH (06:00)
[2019-01-25] MEDS: CLOPIDOGREL 75 MG TAB PO SCH (08:59)
[2019-01-25] MEDS: POLYETHYLENE GLYCOL 17 GM PACKET PO SCH (09:00)
[2019-01-25] MEDS: DOCUSATE SODIUM 100 MG CAP PO SCH ×2 (09:00→20:16)
[2019-01-25] MEDS: ASPIRIN 81 MG TAB PO SCH (09:00)
[2019-01-25] MEDS: CALCIUM ACETATE 667 MG CAP PO SCH ×3 (09:00→16:55)
[2019-01-25] MEDS: ISOSORBIDE DINITRATE 5 MG TAB PO SCH ×3 (09:11→20:16)
[2019-01-25] MEDS: HEPARIN 5,000 UNIT/1 ML VIAL SC SCH ×2 (09:19→20:56)
--- NOTE | 2019-01-25 09:37 | CONS ---
Assessment/Plan Assessment/Plan Assessment/Plan (Daily) 1acute on chronic renal disease. CKD IV On last admission in 10/2018, already creatinine was in 3.59 and then had peaked up to 4.2 and on discharge was 2.76; however on this admission was 3.39. It could be very well because of cardiorenal disease on CKD vs ATN The patient has history of hepatitis C, could be possibility of some glomerulonephritis as well.however UA no active sediment on admission Pt has been non compliant with meds Cr comtinue to uptrend mesfinley ATN, Renal doppler was neg for KAYLA Pt had BP DROPS from 180>90s now further hypotensive first UA neg for any active sediment now UA shows some RBC s/p trauma Cr had been downtrended yesterday as it had peaked to 5.28 > 4.8>4.38 > 3.89>3.84 almost near baseline, patient had CKD 4 and now has insults likely secondary to cardiorenal/ATN worsened with hypotension Chest xRay worseining rt sided effusion s/p thoracentesis UPC 0.38 3. History of proteinuria. 4. Hypertension, controlled 5. History of hepatitis C. 6 Fe def anemia 7 NSTEMI with EKG changes and +Trop, troponins continue to rise 8 right-sided pleural effusion 9 altered mental status questionable metabolic encephalopathy/drugs Plan - Keep even, lasix prn - repeat Chest Xray loculated with right-sided effusion consider pulmonary evalu ation, pending fluid studies patient will likely need repeat thoracentesis - Monitor I's and O's -Spoke to the family at bedside on 01/18 and also the patient in case patient since patient needs coronary angiography patient is at very high risk of contrast nephropathy will monitor creatinine /Electrolytes and UOP 24-48 hours after as she already has CKD stage IV and and will monitor for 24-48 hours after angiography to see for hemodialysis. Family and the patient had been refusing hemodialysis -avoid bp drops To increase renal perfusion - renally dose all meds - avoid nephrotoxins The kidney function has been stable ;electrolytes have been stable patient has good urine output and patient had refused dialysis in the past patient is waiting for longterm placement, will sign off. Call if have additional questions, she can follow us in renal clinic 3-4 weeks post discharge Consultation Date/Type/Reason Admit Date/Time Jan 12, 2019 at 12:23 Initial Consult Date Requesting Provider: KATHY ZARAGOZA MD Date/Time of Note DATE: 01/25/19 TIME: 09:34 24 HR Interval Summary Free Text/Dictation Patient is ambulating with physical therapy.CR is downtrending Urine output being not documented Correctly Exam/Review of Systems Exam Vitals Vital Signs Date Temp Pulse Resp B/P (MAP) Pulse Ox O2 O2 Flow FiO2 Time Delivery Rate 01/25/19 74 08:14 01/25/19 98.2 16 126/82 97 07:31 (97) 01/24/19 Nasal 3.0 08:00 Cannula 01/23/19 32 14:39 Intake and Output 01/24/19 01/24/19 01/25/19 1515:00 23:00 07:00 IntakeIntake Total 300 ml BalanceBalance 300 ml Exam Awake alert oriented Respiratory: decreased breath sounds on rt Cardiovascular: regular rate and rhythm Gastrointestinal: soft, bowel sounds (+) Extremities: No edema Results Result Diagram: 01/25/19 0559 01/25/19 0559 Results 24hrs Laboratory Tests Test 01/24/19 11:19 01/25/19 05:59 Lab Scanned Report REFERENCE LAB White Blood Count 5.7 # Red Blood Count 4.22 Hemoglobin 10.0 L Hematocrit 33.9 L Mean Corpuscular Volume 80.3 L Mean Corpuscular Hemoglobin 23.7 L Mean Corpuscular Hemoglobin Concent 29.5 L Red Cell Distribution Width 19.8 H Platelet Count 233 Mean Platelet Volume 9.9 Immature Granulocytes % 0.500 H Neutrophils % 70.9 Lymphocytes % 15.0 Monocytes % 11.1 H Eosinophils % 1.6 Basophils % 0.9 Nucleated Red Blood Cells % 0.0 Immature Granulocytes # 0.030 Neutrophils # 4.0 Lymphocytes # 0.9 Monocytes # 0.6 Eosinophils # 0.1 Basophils # 0.1 Nucleated Red Blood Cells # 0.0 Sodium Level 144 Potassium Level 4.6 Chloride Level 111 H Carbon Dioxide Level 23 Anion Gap 10 Blood Urea Nitrogen 57 H Creatinine 3.84 H Est Glomerular Filtrat Rate mL/min 14 L Glucose Level 86 Calcium Level 9.5 Phosphorus Level 4.5 Magnesium Level 2.4 Medications Medication Current Medications IV Flush (NS 3 ml) 3 ml PER PROTOCOL IV ; Start 01/12/19 at 13:30 Ondansetron HCl (Zofran Inj) 4 mg Q6H PRN IV NAUSEA/VOMITING Last administered on 01/23/19 21:31; Admin Dose 4 MG; Start 01/12/19 at 13:30 Acetaminophen (Tylenol Tab) 650 mg Q6H PRN PO .PAIN 1-3 OR TEMP Last adminis tered on 01/19/19 21:05; Admin Dose 650 MG; Start 01/12/19 at 13:30 Docusate Sodium (Colace) 100 mg Q12H PRN PO .CONSTIPATION; Start 01/12/19 at 13:30 Magnesium Hydroxide (Milk Of Mag) 30 ml DAILY PRN PO .CONSTIPATION; Start 01/12/19 at 13:30 Hydralazine HCl (Apresoline) 10 mg Q6H PRN IV ELEVATED BLOOD PRESSURE Last administered on 01/24/19 22:06; Admin Dose 10 MG; Start 01/12/19 at 13:30 Nitroglycerin (Nitroglycerin (Sl Tab) 0.4 Mg) 1 tab Q5M PRN SL ANGINA Last administered on 01/18/19 08:00; Admin Dose 1 TAB; Start 01/12/19 at 13:30 Carvedilol (Coreg) 25 mg BID PO Last administered on 01/25/19 09:12; Admin Dose 25 MG; Start 01/12/19 at 21:00 Calcium Acetate (Phoslo) 667 mg WITH MEALS PO Last administered on 01/25/19 09:00; Admin Dose 667 MG; Start 01/13/19 at 17:55 Polyethylene Glycol (Miralax) 17 gm DAILY PO Last administered on 01/25/19 09:00; Admin Dose 17 GM; Start 01/17/19 at 14:00 Morphine Sulfate (morphine) 6 mg Q4H PRN PO SEVERE PAIN LEVEL 7-10 Last administered on 01/24/19 05:20; Admin Dose 6 MG; Start 01/17/19 at 22:30 Aspirin (Aspirin) 81 mg DAILY PO Last administered on 01/25/19 09:00; Admin Dose 81 MG; Start 01/18/19 at 09:00 Docusate Sodium (Colace) 100 mg BID PO Last administered on 01/25/19 09:00; Admin Dose 100 MG; Start 01/18/19 at 09:00 Pantoprazole (Protonix Tab) 40 mg DAILY@0600 PO Last administered on 01/24/19 05:20; Admin Dose 40 MG; Start 01/18/19 at 06:00 Albuterol/ Ipratropium (Duoneb) 3 ml Q6 PRN INH WHEEZING AND SOB; Start 01/18/19 at 04:00 Atorvastatin Calcium (Lipitor) 80 mg HS PO Last administered on 01/24/19at 20:02; Admin Dose 80 MG; Start 01/18/19 at 21:00 Clopidogrel Bisulfate (plaVIX) 75 mg DAILY PO Last administered on 01/25/19 08:59; Admin Dose 75 MG; Start 01/19/19 at 19:00 Heparin Sodium (Porcine) (Heparin (5000 Units/1ml)) 5,000 unit BID SC Last administered on 01/25/19 09:19; Admin Dose 5,000 UNIT; Start 01/21/19 at 21:00 Isosorbide Dinitrate (Isordil) 5 mg TID PO Last administered on 01/25/19 09:11; Admin Dose 5 MG; Start 01/22/19 at 13:00 JESSICA NOLAN MD Jan 25, 2019 09:37
--- NOTE | 2019-01-25 11:08 | PN ---
Date/Time of Note Date/Time of Note DATE: 01/25/19 TIME: 11:06 Assessment/Plan VTE Prophylaxis Risk score (from Ns)>0 risk: 5 SCD applied (from Ns): No SCD contraindicated: other Pharmacological prophylaxis: heparin Lines/Catheters [facility] Saline Lock Urinary Cath still in place: No Assessment/Plan Hospital Course S: Patient had no acute events overnight, seen by renal team this morning. O: VS - see below PHYSICAL EXAMINATION: GENERAL: lying in bed, no acute distress. HEENT: Pupils are equal, round, reactive to light. Extraocular muscles are intact. NECK: Supple. No thyromegaly. LUNGS: Slightly distant breath sounds bilaterally. CARDIOVASCULAR: S1, S2 heard. No rubs or gallops. ABDOMEN: Soft, nontender, nondistended. Normal bowel sounds. No rebound or guarding. MUSCULOSKELETAL: Trace pitting edema bilateral lower extremities to the mid calves. NEUROLOGIC: No focal deficits. 2D echo January 12, 2019: Conclusions: Normal left ventricular systolic function. Normal left ventricular cavity size. Severe concentric left ventricular hypertrophy. Ejection fraction is visually estimated at 65 %. Tissue Doppler/Mitral Doppler indices are consistent with impaired relaxation (Stage I diastolic dysfunction). Normal right ventricular size. Normal right ventricular systolic function. There is mild enlargement of left atrium. The right atrium is normal in size. Mild mitral valve regurgitation. No significant aortic stenosis or insufficiency. Estimated peak PA systolic pressure 31 mmHg. There is mild tricuspid regurgitation. Normal pericardium with no significant pericardial effusion. Assessment/Plan: 63-year-old homeless woman with prior history of chronic kidney disease, questionable chronic obstructive pulmonary disease, congestive heart failure, hypertension, bilateral renal artery stenosis, hepatitis C and anemia who presents with acute CHF exacerbation and HERSON. # Pulmonary edema- resolved. Likely secondary to CHF exacerbation- s/p IV diuresis-now off diuretics for the last 1-2 days, breathing better now -Monitor, for now continue current cardiac medications Isordil, Coreg -Follow-up cardiology recommendations, continue OT and PT as well # NSTEMI-patient found with elevated trops, TWIs in hospital early AM on 01/18- Etiology possibly cocaine, as utox positive for cocaine, per cardiology. Due to patient's history of poor compliance patient was treated medically with heparin gtt x 48 hours. Also patient refused cardiac cath worried it will make her dialysis dependent. - For now continue Coreg, Isordil, aspirin and plavix -medical treatment at this time - Follow-up cardiology recommendations # Delerium- Patient is at high risk of delerium with long hospital stay, frequent benzodiazepines - continue to hold benzos and other sedating medications now - In case of severe agitation not responsive to verbal deescalation with consider haloperidol -Given possible depression symptoms we will also order for psychiatry consult today # Pleural effusion- pt had a right-sided thoracentesis performed January 20 for right-sided pleural effusion with 1 L removed at that time.Now CXR shows loculation of that effusion. (Of note, patient also had R pleural effusion with thoracentesis in 10/2018. Was transudative by protein, no serum LDH to compare it to. Culture and pathology negative) - Now breathing comfortably on room air, continue monitor for now # Acute on CKD - Per renal team, renal function appears to be back at baseline now. On last admission in 10/2018 already creatinine was in 3.59 and then had peaked up to 4.2 and on discharge was 2.76; however on this admission was 3.39. Per renal team, it could be very well because of cardiorenal disease on CKD vs ATN The patient has history of hepatitis C, could be possibility of some glomerulonephritis as well.however UA no active sediment on admission Pt has been non compliant with meds. Renal doppler this admission was neg for KAYLA (previous ultrasound back in October 2018 showed signs of renal artery stenosis?, but again negative this admission) -Continue phosphate binder, monitor BUN and creatinine levels very carefully -Monitor ins and outs -Follow-up renal recommendations -Currently patient declines dialysis. # History of hypertension. She presented at the outside hospital with mild hypertensive urgency, but this has resolved now. - Continue BP meds. Currently borderline hypotensive. #Homelessness - Social work consult -follow-up the recommendation DVT: heparin subQ GI: PPI Dispo: Likely will require subacute care versus SNF -Case management consulted for this, presently working on this along with possible recuperative care placement. Result Diagram: 01/25/1959 01/25/1957 Results 24hrs Laboratory Tests Test 01/24/19 11:19 01/25/19 05:59 Lab Scanned Report REFERENCE LAB White Blood Count 5.7 # Red Blood Count 4.22 Hemoglobin 10.0 L Hematocrit 33.9 L Mean Corpuscular Volume 80.3 L Mean Corpuscular Hemoglobin 23.7 L Mean Corpuscular Hemoglobin Concent 29.5 L Red Cell Distribution Width 19.8 H Platelet Count 233 Mean Platelet Volume 9.9 Immature Granulocytes % 0.500 H Neutrophils % 70.9 Lymphocytes % 15.0 Monocytes % 11.1 H Eosinophils % 1.6 Basophils % 0.9 Nucleated Red Blood Cells % 0.0 Immature Granulocytes # 0.030 Neutrophils # 4.0 Lymphocytes # 0.9 Monocytes # 0.6 Eosinophils # 0.1 Basophils # 0.1 Nucleated Red Blood Cells # 0.0 Sodium Level 144 Potassium Level 4.6 Chloride Level 111 H Carbon Dioxide Level 23 Anion Gap 10 Blood Urea Nitrogen 57 H Creatinine 3.84 H Est Glomerular Filtrat Rate mL/min 14 L Glucose Level 86 Calcium Level 9.5 Phosphorus Level 4.5 Magnesium Level 2.4 Exam/Review of Systems Exam Vitals Vital Signs Date Temp Pulse Resp B/P (MAP) Pulse Ox O2 O2 Flow FiO2 Time Delivery Rate 01/25/19 74 08:14 01/25/19 98.2 16 126/82 97 07:31 (97) 01/24/19 Nasal 3.0 08:00 Cannula 01/23/19 32 14:39 Intake and Output 01/24/19 01/24/19 01/25/19 1515:00 23:00 07:00 IntakeIntake Total 300 ml BalanceBalance 300 ml Results Results 24hrs Laboratory Tests Test 01/24/19 11:19 01/25/19 05:59 Lab Scanned Report REFERENCE LAB White Blood Count 5.7 # Red Blood Count 4.22 Hemoglobin 10.0 L Hematocrit 33.9 L Mean Corpuscular Volume 80.3 L Mean Corpuscular Hemoglobin 23.7 L Mean Corpuscular Hemoglobin Concent 29.5 L Red Cell Distribution Width 19.8 H Platelet Count 233 Mean Platelet Volume 9.9 Immature Granulocytes % 0.500 H Neutrophils % 70.9 Lymphocytes % 15.0 Monocytes % 11.1 H Eosinophils % 1.6 Basophils % 0.9 Nucleated Red Blood Cells % 0.0 Immature Granulocytes # 0.030 Neutrophils # 4.0 Lymphocytes # 0.9 Monocytes # 0.6 Eosinophils # 0.1 Basophils # 0.1 Nucleated Red Blood Cells # 0.0 Sodium Level 144 Potassium Level 4.6 Chloride Level 111 H Carbon Dioxide Level 23 Anion Gap 10 Blood Urea Nitrogen 57 H Creatinine 3.84 H Est Glomerular Filtrat Rate mL/min 14 L Glucose Level 86 Calcium Level 9.5 Phosphorus Level 4.5 Magnesium Level 2.4 Medications Medication Current Medications IV Flush (NS 3 ml) 3 ml PER PROTOCOL IV ; Start 01/12/19 at 13:30 Ondansetron HCl (Zofran Inj) 4 mg Q6H PRN IV NAUSEA/VOMITING Last administered on 01/23/19 21:31; Admin Dose 4 MG; Start 01/12/19 at 13:30 Acetaminophen (Tylenol Tab) 650 mg Q6H PRN PO .PAIN 1-3 OR TEMP Last administered on 01/19/19 21:05; Admin Dose 650 MG; Start 01/12/19 at 13:30 Docusate Sodium (Colace) 100 mg Q12H PRN PO .CONSTIPATION; Start 01/12/19 at 13:30 Magnesium Hydroxide (Milk Of Mag) 30 ml DAILY PRN PO .CONSTIPATION; Start 01/12/19 at 13:30 Hydralazine HCl (Apresoline) 10 mg Q6H PRN IV ELEVATED BLOOD PRESSURE Last administered on 01/24/19 22:06; Admin Dose 10 MG; Start 01/12/19 at 13:30 Nitroglycerin (Nitroglycerin (Sl Tab) 0.4 Mg) 1 tab Q5M PRN SL ANGINA Last administered on 01/18/19 08:00; Admin Dose 1 TAB; Start 01/12/19 at 13:30 Carvedilol (Coreg) 25 mg BID PO Last administered on 01/25/19 09:12; Admin Dose 25 MG; Start 01/12/19 at 21:00 Calcium Acetate (Phoslo) 667 mg WITH MEALS PO Last administered on 01/25/19 09:00; Admin Dose 667 MG; Start 01/13/19 at 17:55 Polyethylene Glycol (Miralax) 17 gm DAILY PO Last administered on 01/25/19 09:00; Admin Dose 17 GM; Start 01/17/19 at 14:00 Morphine Sulfate (morphine) 6 mg Q4H PRN PO SEVERE PAIN LEVEL 7-10 Last administered on 01/24/19 05:20; Admin Dose 6 MG; Start 01/17/19 at 22:30 Aspirin (Aspirin) 81 mg DAILY PO Last administered on 01/25/19 09:00; Admin Dose 81 MG; Start 01/18/19 at 09:00 Docusate Sodium (Colace) 100 mg BID PO Last administered on 01/25/19 09:00; Admin Dose 100 MG; Start 01/18/19 at 09:00 Pantoprazole (Protonix Tab) 40 mg DAILY@0600 PO Last administered on 01/24/19 05:20; Admin Dose 40 MG; Start 01/18/19 at 06:00 Albuterol/ Ipratropium (Duoneb) 3 ml Q6 PRN INH WHEEZING AND SOB; Start 01/18/19 at 04:00 Atorvastatin Calcium (Lipitor) 80 mg HS PO Last administered on 01/24/19 20:02; Admin Dose 80 MG; Start 01/18/19 at 21:00 Clopidogrel Bisulfate (plaVIX) 75 mg DAILY PO Last administered on 01/25/19 08:59; Admin Dose 75 MG; Start 01/19/19 at 19:00 Heparin Sodium (Porcine) (Heparin (5000 Units/1ml)) 5,000 unit BID SC Last administered on 01/25/19 09:19; Admin Dose 5,000 UNIT; Start 01/21/19 at 21:00 Isosorbide Dinitrate (Isordil) 5 mg TID PO Last administered on 01/25/19 09:11; Admin Dose 5 MG; Start 01/22/19 at 13:00 MICHAEL STARR Jan 25, 2019 11:08
[2019-01-25] MEDS: hydrALAzine 20 MG INJ IV PRN (16:28)
--- NOTE | 2019-01-25 16:54 | PSY ---
Date/Time of Note Date/Time of Note DATE: 01/25/19 TIME: 16:44 Psychiatric Subjective Eval Consent Pt consented to telemedicine: No Subjective Evaluation Patient location: inpatient History of present illness Patient is a 63year old -[place]i female with a past medical history of hypertension, chronic kidney disease, COPD, cocaine use, hepatitis C, bilateral renal artery stenosis. On a face to face evaluation, patient reports long history of mental illness, denies suicidal ideation, denies homicidal ideation, denies hearing voices and contracted for safety. Patient has been refusing treatment, but refused to state reasons for refusal. Past psychiatric history Lond history of mental illness Medical history Problems Medical Problems: (1) Acute kidney injury superimposed on chronic kidney disease Status: Chronic (2) Chronic renal insufficiency Status: Acute (3) Cocaine abuse Status: Chronic (4) COPD exacerbation Status: Acute (5) Grade II diastolic dysfunction Status: Chronic (6) Hepatitis C antibody positive in blood Status: Chronic (7) Hypertensive urgency Status: Resolved (8) Iron deficiency anemia Status: Chronic (9) Microcytic anemia Status: Chronic (10) Pleural effusion, right Status: Acute (11) Sciatica Status: Chronic (12) Shortness of breath Status: Acute (13) Volume overload Status: Acute Allergies: Coded Allergies: No Known Allergies (Verified Allergy, Unknown, 11/20/18) Substance Abuse Substance abuse history: No Prior substance abuse treatmen: No Social History Marital status: other DPA/Conservatorship: No Psychiatric Objective Eval Mental Status Examination: Laboratory Results Laboratory Tests Test 01/24/19 05:54 01/24/19 11:19 01/25/19 05:59 White Blood Count 4.2 10^3/ul 5.7 10^3/ul Red Blood Count 3.81 10^6/ul 4.22 10^6/ul Hemoglobin 9.2 g/dl 10.0 g/dl Hematocrit 30.8 % 33.9 % Mean Corpuscular Volume 80.8 fl 80.3 fl Mean Corpuscular 24.1 pg 23.7 pg Hemoglobin Mean Corpuscular 29.9 g/dl 29.5 g/dl Hemoglobin Concent Red Cell Distribution 19.9 % 19.8 % Width Platelet Count 223 10^3/UL 233 10^3/UL Mean Platelet Volume 9.8 fl 9.9 fl Immature Granulocytes % 0.500 % 0.500 % Neutrophils % 66.2 % 70.9 % Lymphocytes % 19.3 % 15.0 % Monocytes % 11.6 % 11.1 % Eosinophils % 1.7 % 1.6 % Basophils % 0.7 % 0.9 % Nucleated Red Blood Cells 0.0 /100WBC 0.0 /100WBC % Immature Granulocytes # 0.020 10^3/ul 0.030 10^3/ul Neutrophils # 2.8 10^3/ul 4.0 10^3/ul Lymphocytes # 0.8 10^3/ul 0.9 10^3/ul Monocytes # 0.5 10^3/ul 0.6 10^3/ul Eosinophils # 0.1 10^3/ul 0.1 10^3/ul Basophils # 0.0 10^3/ul 0.1 10^3/ul Nucleated Red Blood Cells 0.0 10^3/ul 0.0 10^3/ul # Sodium Level 146 mmol/L 144 mmol/L Potassium Level 4.4 mmol/L 4.6 mmol/L Chloride Level 113 mmol/L 111 mmol/L Carbon Dioxide Level 23 mmol/L 23 mmol/L Anion Gap 10 10 Blood Urea Nitrogen 64 mg/dl 57 mg/dl Creatinine 3.89 mg/dl 3.84 mg/dl Est Glomerular Filtrat 14 mL/min 14 mL/min Rate mL/min Glucose Level 84 mg/dl 86 mg/dl Calcium Level 9.1 mg/dl 9.5 mg/dl Lab Scanned Report REFERENCE LAB [id number] Phosphorus Level 4.5 mg/dl Magnesium Level 2.4 mg/dl Assessment and Plan Assessment/Diagnosis Diagnosis Mood Disorder Nos Recommendation/Plan Medication Management Refused Discharge Disposition: Other Legal Status: Voluntary (Does not meet criteria for 5150) NEVA HARRINGTON NP Jan 25, 2019 16:54
[2019-01-25] MEDS: morphine LIQ (10 MG/5 ML) CUP PO PRN ×2 (18:16→21:57)
[2019-01-25] MEDS: ATORVASTATIN 80 MG TAB PO SCH (20:16)
[2019-01-26] VITALS (8 sets, daily range): BP systolic 134–181; BP diastolic 62–100; PULSE 65–77; RESP 16–20
[2019-01-26] MEDS: PANTOPRAZOLE (EC) 40 MG TAB PO SCH (05:26)
[2019-01-26] MEDS: CALCIUM ACETATE 667 MG CAP PO SCH ×2 (07:40→11:45)
[2019-01-26] MEDS: hydrALAzine 20 MG INJ IV PRN ×2 (07:41→15:04)
[2019-01-26] MEDS: POLYETHYLENE GLYCOL 17 GM PACKET PO SCH (09:04)
[2019-01-26] MEDS: ASPIRIN 81 MG TAB PO SCH (09:05)
[2019-01-26] MEDS: CLOPIDOGREL 75 MG TAB PO SCH (09:05)
[2019-01-26] MEDS: DOCUSATE SODIUM 100 MG CAP PO SCH (09:05)
[2019-01-26] MEDS: ISOSORBIDE DINITRATE 5 MG TAB PO SCH ×2 (09:10→11:46)
[2019-01-26] MEDS: HEPARIN 5,000 UNIT/1 ML VIAL SC SCH (09:16)
--- NOTE | 2019-01-26 12:11 | PN ---
Date/Time of Note Date/Time of Note DATE: 01/26/19 TIME: 12:09 Assessment/Plan VTE Prophylaxis Risk score (from Ns)>0 risk: 5 SCD applied (from Ns): No SCD contraindicated: other Pharmacological prophylaxis: heparin Lines/Catheters IV Catheter Type (from [facility]): Saline Lock Urinary Cath still in place: No Assessment/Plan Hospital Course S: Patient had no acute events overnight, seen by psychiatry team yesterday. O: VS - see below PHYSICAL EXAMINATION: GENERAL: lying in bed, no acute distress. HEENT: Pupils are equal, round, reactive to light. Extraocular muscles are intact. NECK: Supple. No thyromegaly. LUNGS: Slightly distant breath sounds bilaterally. CARDIOVASCULAR: S1, S2 heard. No rubs or gallops. ABDOMEN: Soft, nontender, nondistended. Normal bowel sounds. No rebound or guarding. MUSCULOSKELETAL: Trace pitting edema bilateral lower extremities to the mid calves. NEUROLOGIC: No focal deficits. 2D echo January 12, 2019: Conclusions: Normal left ventricular systolic function. Normal left ventricular cavity size. Severe concentric left ventricular hypertrophy. Ejection fraction is visually estimated at 65 %. Tissue Doppler/Mitral Doppler indices are consistent with impaired relaxation (Stage I diastolic dysfunction). Normal right ventricular size. Normal right ventricular systolic function. There is mild enlargement of left atrium. The right atrium is normal in size. Mild mitral valve regurgitation. No significant aortic stenosis or insufficiency. Estimated peak PA systolic pressure 31 mmHg. There is mild tricuspid regurgitation. Normal pericardium with no significant pericardial effusion. Assessment/Plan: 63-year-old homeless woman with prior history of chronic kidney disease, questionable chronic obstructive pulmonary disease, congestive heart failure, hypertension, bilateral renal artery stenosis, hepatitis C and anemia who presents with acute CHF exacerbation and HERSON. # Pulmonary edema- resolved. Likely secondary to CHF exacerbation- s/p IV diuresis-now off diuretics for the last 1-2 days, breathing better now -Monitor, for now continue current cardiac medications Isordil, Coreg -Follow-up cardiology recommendations, continue OT and PT as well # NSTEMI-patient found with elevated trops, TWIs in hospital early AM on 01/18- Etiology possibly cocaine, as utox positive for cocaine, per cardiology. Due to patient's history of poor compliance patient was treated medically with heparin gtt x 48 hours. Also patient refused cardiac cath worried it will make her dialysis dependent. - For now continue Coreg, Isordil, aspirin and plavix -medical treatment at this time - Follow-up cardiology recommendations # Delerium- Patient is at high risk of delerium with long hospital stay, frequent benzodiazepines - continue to hold benzos and other sedating medications now - In case of severe agitation not responsive to verbal deescalation with consider haloperidol -Given possible depression symptoms we will also order for psychiatry consult today # Pleural effusion- pt had a right-sided thoracentesis performed January 20 for right-sided pleural effusion with 1 L removed at that time.Now CXR shows loculation of that effusion. (Of note, patient also had R pleural effusion with thoracentesis in 10/2018. Was transudative by protein, no serum LDH to compare it to. Culture and pathology negative) - Now breathing comfortably on room air, continue monitor for now # Acute on CKD - Per renal team, renal function appears to be back at baseline now. On last admission in 10/2018 already creatinine was in 3.59 and then had peaked up to 4.2 and on discharge was 2.76; however on this admission was 3.39. Per renal team, it could be very well because of cardiorenal disease on CKD vs ATN The patient has history of hepatitis C, could be possibility of some glomerulonephritis as well.however UA no active sediment on admission Pt has been non compliant with meds. Renal doppler this admission was neg for KAYLA (previous ultrasound back in October 2018 showed signs of renal artery stenosis?, but again negative this admission) -Continue phosphate binder, monitor BUN and creatinine levels very carefully -Monitor ins and outs -Follow-up renal recommendations -Currently patient declines dialysis. # History of hypertension. She presented at the outside hospital with mild hypertensive urgency, but this has resolved now. - Continue BP meds. Currently borderline hypotensive. #Homelessness - Social work consult -follow-up the recommendation DVT: heparin subQ GI: PPI Dispo: Likely will require subacute care versus SNF -Case management consulted for this, presently working on this along with possible recuperative care placement. Result Diagram: 01/25/1959 01/25/1959 Exam/Review of Systems Exam Vitals Vital Signs Date Temp Pulse Resp B/P (MAP) Pulse Ox O2 O2 Flow FiO2 Time Delivery Rate 01/26/19 67 12:01 01/26/19 98.0 20 170/100 93 Room Air 11:13 (123) 01/25/19 3.0 16:00 01/23/19 32 14:39 Intake and Output 01/25/19 01/25/19 01/26/19 1414:59 22:59 06:59 IntakeIntake Total 300 ml 400 ml 240 ml BalanceBalance 300 ml 400 ml 240 ml Medications Medication Current Medications IV Flush (NS 3 ml) 3 ml PER PROTOCOL IV ; Start 01/12/19 at 13:30 Ondansetron HCl (Zofran Inj) 4 mg Q6H PRN IV NAUSEA/VOMITING Last administered on 01/23/19 21:31; Admin Dose 4 MG; Start 01/12/19 at 13:30 Acetaminophen (Tylenol Tab) 650 mg Q6H PRN PO .PAIN 1-3 OR TEMP Last administered on 01/19/19 21:05; Admin Dose 650 MG; Start 01/12/19 at 13:30 Docusate Sodium (Colace) 100 mg Q12H PRN PO .CONSTIPATION; Start 01/12/19 at 13:30 Magnesium Hydroxide (Milk Of Mag) 30 ml DAILY PRN PO .CONSTIPATION; Start 01/12/19 at 13:30 Hydralazine HCl (Apresoline) 10 mg Q6H PRN IV ELEVATED BLOOD PRESSURE Last administered on 01/26/19 07:41; Admin Dose 10 MG; Start 01/12/19 at 13:30 Nitroglycerin (Nitroglycerin (Sl Tab) 0.4 Mg) 1 tab Q5M PRN SL ANGINA Last administered on 01/18/19 08:00; Admin Dose 1 TAB; Start 01/12/19 at 13:30 Carvedilol (Coreg) 25 mg BID PO Last administered on 01/26/19 09:10; Admin Dose 25 MG; Start 01/12/19 at 21:00 Calcium Acetate (Phoslo) 667 mg WITH MEALS PO Last administered on 01/26/19 11:45; Admin Dose 667 MG; Start 01/13/19 at 17:55 Polyethylene Glycol (Miralax) 17 gm DAILY PO Last administered on 01/26/19 09:04; Admin Dose 17 GM; Start 01/17/19 at 14:00 Morphine Sulfate (morphine) 6 mg Q4H PRN PO SEVERE PAIN LEVEL 7-10 Last administered on 01/25/19 21:57; Admin Dose 6 MG; Start 01/17/19 at 22:30 Aspirin (Aspirin) 81 mg DAILY PO Last administered on 01/26/19 09:05; Admin Dose 81 MG; Start 01/18/19 at 09:00 Docusate Sodium (Colace) 100 mg BID PO Last administered on 01/26/19 09:05; Admin Dose 100 MG; Start 01/18/19 at 09:00 Pantoprazole (Protonix Tab) 40 mg DAILY@0600 PO Last administered on 01/26/19 05:26; Admin Dose 40 MG; Start 01/18/19 at 06:00 Albuterol/ Ipratropium (Duoneb) 3 ml Q6 PRN INH WHEEZING AND SOB; Start 01/18/19 at 04:00 Atorvastatin Calcium (Lipitor) 80 mg HS PO Last administered on 01/25/19 20:16; Admin Dose 80 MG; Start 01/18/19 at 21:00 Clopidogrel Bisulfate (plaVIX) 75 mg DAILY PO Last administered on 01/26/19 09:05; Admin Dose 75 MG; Start 01/19/19 at 19:00 Heparin Sodium (Porcine) (Heparin (5000 Units/1ml)) 5,000 unit BID SC Last administered on 01/26/19 09:16; Admin Dose 5,000 UNIT; Start 01/21/19 at 21:00 Isosorbide Dinitrate (Isordil) 5 mg TID PO Last administered on 01/26/19 11:46; Admin Dose 5 MG; Start 01/22/19 at 13:00 MICHAEL STARR Jan 26, 2019 12:11
[2019-01-26] MEDS ORDERED: ONDANSETRON INJ 8 MG in SOD CHLORIDE 0.9% 50 ML IV PRN (12:30)
[2019-01-26] MEDS ORDERED: TRIMETHOBENZAMIDE 100 MG/ML VIAL IM PRN (12:30)
[2019-01-26] MEDS ORDERED: GUAIFENESIN 20 MG/ML 5ML CUP PO PRN (12:30)
[2019-01-26] MEDS ORDERED: ONDANSETRON 4 MG INJ IV PRN (13:30)
--- NOTE | 2019-01-26 14:06 | PDOCDIS ---
Discharge Instructions CONDITION [id number] Patient Condition: [id number] Stable HOME CARE INSTRUCTIONS: [id number] Diet Instructions: [id number] Low Fat /Cholesterol [id number] Special Diet: [id number] Renal diet ACTIVITY: [id number] Activity Restrictions: [id number] Slowly Increase Activity Rest between Activity Avoid heavy lifting FOLLOW UP/APPOINTMENTS Follow-up Plan Please take your medications as prescribed, see your doctor in the clinic in the next 1 week. MICHAEL STARR Jan 26, 2019 14:06
[2019-01-26] MEDS ORDERED: ATOR-2 PO (14:13)
[2019-01-26] MEDS ORDERED: POLY17PO6 PO (14:13)
[2019-01-26] MEDS ORDERED: CLOP75TA28 PO (14:13)
[2019-01-26] MEDS ORDERED: ASPI-903 PO (14:13)
[2019-01-26] MEDS ORDERED: CALC667C PO (14:13)
[2019-01-26] MEDS ORDERED: FLUT1AER INHALATION (14:13)
[2019-01-26] MEDS ORDERED: GUAI-637 PO (14:13)
[2019-01-26] MEDS ORDERED: CLON1PAT3 TD (14:13)
[2019-01-26] MEDS ORDERED: FURO20TA3 PO (14:13)
[2019-01-26] MEDS ORDERED: ONDA8TAB9 PO (14:13)
[2019-01-26] MEDS ORDERED: TIOT18CA INHALATION (14:13)
[2019-01-26] MEDS ORDERED: PANT40TA3 PO (14:13)
[2019-01-26] MEDS ORDERED: DOCU100T PO (14:13)
[2019-01-26] MEDS ORDERED: ISOS5TAB2 PO (14:13)
[2019-01-26] MEDS ORDERED: CARV25TA79 PO (14:13)
--- NOTE | 2019-01-26 14:25 | DS ---
Date/Time of Note Date/Time of Note DATE: 01/26/19 TIME: 14:15 Discharge Summary Admission/Discharge Info Admit Date/Time Jan 12, 2019 at 12:23 Discharge Date/Time Discharge Diagnosis NSTEMI Acute on chronic diastolic hf, preserved LV function on repeat echo acute on chronic renal insufficiency, near esrd Cocaine use -counseled on cessation Right pleural effusion - pt had a right-sided thoracentesis performed January 20 for right-sided pleural effusion with 1 L removed at that time. Hypertension, controlled hepatitis C Anemia Delerium Patient Condition: Stable Procedures A. 2D echo January 12, 2019: Conclusions: Normal left ventricular systolic function. Normal left ventricular cavity size. Severe concentric left ventricular hypertrophy. Ejection fraction is visually estimated at 65 %. Tissue Doppler/Mitral Doppler indices are consistent with impaired relaxation (Stage I diastolic dysfunction). Normal right ventricular size. Normal right ventricular systolic function. There is mild enlargement of left atrium. The right atrium is normal in size. Mild mitral valve regurgitation. No significant aortic stenosis or insufficiency. Estimated peak PA systolic pressure 31 mmHg. There is mild tricuspid regurgitation. Normal pericardium with no significant pericardial effusion. B. Renal artery ultrasound: IMPRESSION: No visualized evidence of renal artery stenosis. Mildly elevated intrarenal artery resistive indices on the right. Finding is n onspecific and could be the sequelae of medical renal disease, prior insult or chronic ischemia. Increased cortical echogenicity in both kidneys suggesting medical renal disease. Simple right renal cyst. Hx of Present Illness 63-year-old female with past medical history based on records of questionable COPD, CHF, CKD, anemia, hypertension, drug abuse, questionable hepatitis C, who was transferred from outside hospital due to shortness of breath symptoms. The patient has been having these symptoms over the last few weeks. She has also been complaining of PND, but no chest pain, no nausea, vomiting, no fevers or chills, no abdominal pain, no headaches. When she went to the outside hospital, she had some labs performed that showed elevated BNP of 19,000. She also had a chest x-ray performed that showed signs of possible CHF and small bilateral pleural effusions. She was given a dose of Lasix as well as antibiotics at the outside hospital before being transferred here. The patient was also found with a creatinine of 3.39. When she was here at the hospital back in 10/2018, her creatinine at that time was 2.76. Hospital Course She was admitted and seen by multiple specialists during his hospital stay including cardiology, renal, and briefly by psychiatry team. Her CHF along with Pulmonary edema symptoms resolved with somewhat aggressive IV diuresis, and her breathing is better now.patient also found with NSTEMI-patient found with elevated trops, TWIs in hospital early AM on 01/18- Etiology possibly cocaine, as utox positive for cocaine, per cardiology. Due to patient's history of poor compliance patient was treated medically with heparin gtt x 48 hours, then placed on appropriate hypertensive medications, aspirin, Plavix, statin after that. Also patient refused cardiac cath worried it will make her dialysis dependent. Patient also found with pleural effusion- pt had a right-sided thoracentesis performed January 20 for right-sided pleural effusion with 1 L removed at that time.Now CXR shows loculation of that effusion. (Of note, patient also had R pleural effusion with thoracentesis in 10/2018. Was transudative by protein, no serum LDH to compare it to. Culture and pathology negative). Patient also found with acute on CKD - Per renal team, renal function appears to be back at baseline now. On last admission in 10/2018 already creatinine was in 3.59 and then had peaked up to 4.2 and on discharge was 2.76; however on this admission was 3.39. Per renal team, it could be very well because of cardiorenal disease on CKD vs ATN The patient has history of hepatitis C, could be possibility of some glomerulonephritis as well. however UA no active sediment on admission Pt has been non compliant with meds. Renal doppler this admission was neg for KAYLA (previous ultrasound back in October 2018 showed signs of renal artery stenosis?, but again negative this admission). Over the course of her hospital stay again her symptoms improved, she was able to ambulate after work with physical therapy occupational therapy teams with some assistance, tolerating diet. She was strongly educated about the importance of adhering to her medications as an outpatient, and to stop using cocaine. After getting clearance from security sales consultant teams patient will be discharged to recuperative care facility today in improved condition. See below for full list of discharge medications. Home Meds Active Scripts Ondansetron Hcl* (Zofran*) 8 Mg Tablet, 8 MG PO Q6H PRN for NAUSEA AND OR VOM ITING, #60 TAB Prov:MICHAEL STARR S. 01/26/19 Polyethylene Glycol* (Miralax*) 17 Gm Powd.pack, 17 GM PO DAILY, #1 BOTTLE 4 Refills Prov:MICHAEL STARR S. 01/26/19 Guaifenesin (Guaifenesin) 100 Mg/5 Ml Liquid, 200 MG PO Q4H PRN for COUGH, #1 BOTTLE Prov:MICHAEL STARR S. 01/26/19 Calcium Acetate* (Calcium Acetate*) 667 Mg Capsule, 667 MG PO WITH MEALS, #90 CAP 4 Refills Prov:MICHAEL STARR S. 01/26/19 Isosorbide Dinitrate* (Isordil*) 5 Mg Tab, 5 MG PO TID, #90 TAB 4 Refills Prov:MICHAEL STARR S. 01/26/19 Atorvastatin* (Atorvastatin*) 80 Mg Tablet, 80 MG PO HS, #30 TAB 8 Refills Prov:MICHAEL STARR. 01/26/19 Clopidogrel Bisulfate (Clopidogrel) 75 Mg Tablet, 75 MG PO DAILY, #30 TAB 8 Refills Prov:MICHAEL STARR . 01/26/19 Clonidine Patch (CLONIDINE PATCH) 0.3 Mg/24 Hr Patch, 1 PATCH.WK TD Q7D, #4 PATCH.WK 4 Refills Prov:MICHAEL STARR. 01/26/19 Aspirin* (Aspirin* Chew) 81 Mg Tab.chew, 81 MG PO DAILY, #30 TAB.CHEW 8 Refills Prov:MICHAEL STARR. 01/26/19 Carvedilol* (Carvedilol*) 25 Mg Tablet, 25 MG PO BID, #60 TAB 4 Refills Prov:MICHAEL STARR S. 01/26/19 Furosemide* (Furosemide*) 20 Mg Tablet, 20 MG PO DAILY, #30 TAB 4 Refills Prov:MICHAEL STARR. 01/26/19 Pantoprazole* (Protonix*) 40 Mg Tablet.dr, 40 MG PO DAILY, #30 TAB 4 Refills Prov:MICHAEL STARR S. 01/26/19 Docusate Sodium* (Dok*) 100 Mg Tablet, 100 MG PO BID, #60 CAP 4 Refills Prov:MICHAEL STARR. 01/26/19 Tiotropium [place]* (Spiriva*) 18 Mcg Cap.w.dev, 1 CAP INHALATION DAILY, #30 CAP 5 Refills Prov:MICHAEL STARR S. 01/26/19 Fluticasone-Vilanterol (Breo Ellipta Inhaler) 100-25 Mcg/Actuation Aer.pow.ba, 1 PUFF INHALATION DAILY, #1 INHALER 4 Refills Prov:MICHAEL STARR S. 01/26/19 Reported Medications Ipratropium-Albuterol (Ipratropium-Albuterol) 0.5-3 Mg/3 Ml Ampul.neb, 3 ML INHALATION Q6 PRN for WHEEZING AND SOB, #30 VIAL 11/20/18 Discontinued Reported Medications Isosorbide Mononitrate* (Isosorbide Mononitrate*) 60 Mg Tab.er.24h, 60 MG PO DAILY, TAB 01/12/19 Nifedipine* (Nifedipine ER*) 60 Mg Tablet.sa, 60 MG PO DAILY, TAB.SA 11/20/18 Metoprolol Succinate* (Toprol XL*) 50 Mg Tab.er.24h, 50 MG PO DAILY, #30 TAB 11/20/18 Follow-up Plan Please take your medications as prescribed, see your doctor in the clinic in the next 1 week. Primary Care Provider [facility] Time spent on discharge: > 30 minutes MICHAEL STARR Jan 26, 2019 14:25
--- NOTE | 2019-01-27 13:54 | RADRPT ---
Vent Rate: 64 bpm RR Interval: 0 msec [place] Interval: 146 msec QRS Duration: 84 msec QT Interval: 428 msec QTC Interval: 441 msec P-R-T [place]: 73 - 77 - 0 degrees Normal sinus rhythm Anteroseptal infarct , age undetermined ST & Marked T wave abnormality, consider inferolateral ischemia Abnormal ECG Electronically Signed By: Russel Jasso
--- NOTE | 2019-01-27 13:54 | RADRPT ---
Vent Rate: 64 bpm RR Interval: 0 msec ID Interval: 138 msec QRS Duration: 82 msec QT Interval: 428 msec QTC Interval: 441 msec P-R-T [place]: 84 - 69 - 0 degrees Normal sinus rhythm Inferior and anterolateral TW inversions. Consider ischemia Abnormal ECG Electronically Signed By: Russel Jasso
== END 2019-01-26 15:30 | disposition home or self-care (01) | DRG 280 ==
LOC: TEL 12:23 → MS1 01-14 14:04 → TEL 01-18 03:40
PROVIDERS: ADMIT Internal Medicine; ATTEND Hospitalist
PROC: 0W993ZX Drainage of Right Pleural Cavity, Percutaneous Approach, Diagnostic (ICD-10-PCS; principal; 2019-01-20)
DX: I13.0 Hypertensive heart and chronic kidney disease with heart failure and stage 1 through stage 4 chronic kidney disease, or unspecified chronic kidney disease (principal); N17.0 Acute kidney failure with tubular necrosis; I21.4 Non-ST elevation (NSTEMI) myocardial infarction; I50.33 Acute on chronic diastolic (congestive) heart failure; G92 Toxic encephalopathy; J90 Pleural effusion, not elsewhere classified; N28.1 Cyst of kidney, acquired; N18.3 Chronic kidney disease, stage 3 (moderate); J44.9 Chronic obstructive pulmonary disease, unspecified; B19.20 Unspecified viral hepatitis C without hepatic coma; J06.9 Acute upper respiratory infection, unspecified; F17.210 Nicotine dependence, cigarettes, uncomplicated; D63.1 Anemia in chronic kidney disease; E78.5 Hyperlipidemia, unspecified; F14.10 Cocaine abuse, uncomplicated; R41.0 Disorientation, unspecified; Z59.0 Homelessness; Z91.14 Patient's other noncompliance with medication regimen
CPT/HCPCS: 32555; 71045; 71250; 76604; 76775; 80048; 80061; 80307; 81001; 81003; 82550; 82553; 82570; 83036; 83540; 83735; 83970; 84100; 84155; 84300; 84439; 84443; 84484; 85025; 85610; 85730; 87086; 93005; 93306; 93976; 94640; 94664; 97110; 97116; 97162; 97164; 97166; 97168; 97530; 97535; J0360; J1630; J1644; J1940; J1956; J2060; J2270; J2405; J2916; J3250

== ENCOUNTER 2019-05-21 02:40 | Inpatient (IN) | payer OTHER ==
[~2019-05-21] VITALS: Ht 167.6 cm; Wt 72.5 kg
[~2019-05-21 02:40] MED LIST changes: +ASPI-903 PO; +ATOR-2 PO; +CALC667C PO; +CARV25TA79 PO; +CLON1PAT3 TD; +CLOP75TA28 PO; +FURO20TA3 PO; +GUAI-637 PO; +ISOS5TAB2 PO; -METO-319 PO; -NIFE60TA18 PO; +ONDA8TAB9 PO; +POLY17PO6 PO
[2019-05-21 05:45] VITALS: BP 137/77; PULSE 65; RESP 18
[2019-05-21 06:00] VITALS: Ht 167.6 cm; Wt 72.5 kg
--- NOTE | 2019-05-21 08:31 | HP ---
Date/Time of Note Date/Time of Note DATE: 05/21/19 TIME: 08:26 Assessment/Plan VTE Prophylaxis Pharmacological prophylaxis: heparin Lines/Catheters IV Catheter Type (from Nrsg): Peripheral IV Assessment/Plan Assessment/Plan 63-year-old female with history of hypertension, COPD, CHF, CKD, substance abuse, pleural effusion requiring thoracentesis transferred from outside hospital because of insurance reason for management of Right buttock and abdominal wall cellulitis, per patient is a result of her sleeping on a carpet PLAN -IV antibiotic -Pain management -Continue home meds, adjust as needed HPI/ROS Admit Date/Time Admit Date/Time May 21, 2019 at 05:07 Hx of Present Illness Patient is a 63-year-old female with history of hypertension, COPD, CHF, CKD, substance abuse, pleural effusion requiring thoracentesis. Patient initially presented on outside hospital complaining of right buttock and abdominal pain and lesion. She said that she was sleeping on a carpet, which resulted in scratch jennings due to rubbing. She said she on the right side of her but other than initially more painful. Patient was transferred to [facility] for insurance reason. Patient has been sleepy throughout history taking and required constant stimulation to keep her awake. PMH/Family/Social Past Medical History Medical History: other (See HPI) Coded Allergies: No Known Allergies (Verified Allergy, Unknown, 11/20/18) Past Surgical History Past Surgical Hx: other (See HPI) Family History Significant Family History: no pertinent family hx Social History Alcohol Use: none Drug Use: cocaine Exam/Review of Systems Vital Signs Vitals Vital Signs Date Temp Pulse Resp B/P (MAP) Pulse Ox O2 O2 Flow FiO2 Time Delivery Rate 05/21/19 98.1 65 18 137/77 99 05:45 (97) Exam Constitutional: other (Patient is sleepy, but arousable. No acute distress) Head: normocephalic, atraumatic Eyes: EOMI, PERRL Respiratory: clear to auscultation, normal air movement Cardiovascular: regular rate and rhythm, nl pulses Gastrointestinal: soft, other (Cellulitis) Skin: other (Right buttock superficial cellulitis and some scratch jennings) COLTEN BARCENAS MD May 21, 2019 08:31
[2019-05-21 08:53] VITALS: BP 138/77; PULSE 92; RESP 20
[2019-05-21] MEDS ORDERED: PANTOPRAZOLE (EC) 40 MG TAB PO SCH (09:00)
[2019-05-21] MEDS ORDERED: ALBUTEROL/IPRATROPIUM (NEB) 3 ML AMP INH PRN (09:00)
[2019-05-21] MEDS ORDERED: DOCUSATE SODIUM 100 MG CAP PO SCH (09:00)
[2019-05-21] MEDS ORDERED: NACL 0.9% 3 ML SYG IV SCH (09:00)
[2019-05-21] MEDS ORDERED: ASPIRIN 81 MG TAB PO SCH (09:00)
[2019-05-21] MEDS ORDERED: VANCOMYCIN IV PER PHARMACY XX SCH (09:00)
[2019-05-21] MEDS ORDERED: ALBUTEROL/IPRATROPIUM (NEB) 3 ML AMP HHN PRN (09:00)
[2019-05-21] MEDS ORDERED: FLUTICASONE/VILANTEROL 100-25 INH SCH (09:00)
[2019-05-21] MEDS ORDERED: TIOTROPIUM 18 MCG CAPSULE INHA DEV INH SCH (09:00)
[2019-05-21] MEDS ORDERED: ACETAMINOPHEN 325 MG TAB PO PRN (09:00)
[2019-05-21] MEDS ORDERED: GUAIFENESIN 20 MG/ML 5ML CUP PO PRN (09:00)
[2019-05-21] MEDS ORDERED: HYDROCODONE/APAP (5/325) TAB PO PRN ×2 (09:00)
[2019-05-21] MEDS ORDERED: HEPARIN 5,000 UNIT/1 ML VIAL SC SCH (09:00)
[2019-05-21] MEDS ORDERED: ONDANSETRON 4 MG INJ IV PRN (09:00)
[2019-05-21] MEDS ORDERED: FUROSEMIDE 20 MG TAB PO SCH (09:00)
[2019-05-21] MEDS ORDERED: CLOPIDOGREL 75 MG TAB PO SCH (09:00)
[2019-05-21] MEDS ORDERED: CEFEPIME 2GM/50 ML (PMX) 50 ML IVPB SCH (10:00)
[2019-05-21] MEDS ORDERED: VANCOMYCIN HCL 1.25 GM in SOD CHLORIDE 0.9% 250 ML IVPB SCH (11:00)
[2019-05-21] MEDS ORDERED: CALCIUM ACETATE 667 MG CAP PO SCH (11:30)
[2019-05-21] MEDS: ISOSORBIDE DINITRATE 5 MG TAB PO SCH ×2 (13:00→14:07)
[2019-05-21 14:25] VITALS: BP 134/70; PULSE 90; RESP 20
--- NOTE | 2019-05-21 16:25 | DS ---
Date/Time of Note Date/Time of Note DATE: 05/21/19 TIME: 16:23 Discharge Summary Admission/Discharge Info Admit Date/Time May 21, 2019 at 05:07 Discharge Date/Time Patient Condition: Fair Hx of Present Illness 63-year-old female admitted from outside ER with abdominal and buttock concern of cellulitis. Hospital Course Hospitalist coverage/hospital course Evaluated and managed for cellulitis. Patient states there was excessive friction from a carpet burn. Patient has active substance abuse. Symptoms include itching. Vital signs stable presently stable for for discharge. I will give her a course of Silvadene and clindamycin. Cellulitis Substance abuse cocaine Nonadherence Hypertension Anemia CKD. htn vs hepatitis C associated Hepatitis C? Home Meds Active Scripts Ondansetron Hcl* (Zofran*) 8 Mg Tablet, 8 MG PO Q6H PRN for NAUSEA AND OR VOMITING, #60 TAB Prov:MICHAEL STARR S. 01/26/19 Polyethylene Glycol* (Miralax*) 17 Gm Powd.pack, 17 GM PO DAILY, #1 BOTTLE 4 Refills Prov:MICHAEL STARR S. 01/26/19 Guaifenesin (Guaifenesin) 100 Mg/5 Ml Liquid, 200 MG PO Q4H PRN for COUGH, #1 BOTTLE Prov:MICHAEL STARR S. 01/26/19 Calcium Acetate* (Calcium Acetate*) 667 Mg Capsule, 667 MG PO WITH MEALS, #90 CAP 4 Refills Prov:MICHAEL STARR S. 01/26/19 Isosorbide Dinitrate* (Isordil*) 5 Mg Tab, 5 MG PO TID, #90 TAB 4 Refills Prov:MICHAEL STARR S. 01/26/19 Atorvastatin* (Atorvastatin*) 80 Mg Tablet, 80 MG PO HS, #30 TAB 8 Refills Prov:MICHAEL STARR S. 01/26/19 Clopidogrel Bisulfate (Clopidogrel) 75 Mg Tablet, 75 MG PO DAILY, #30 TAB 8 Refills Prov:MICHAEL STARR S. 01/26/19 Clonidine Patch (CLONIDINE PATCH) 0.3 Mg/24 Hr Patch, 1 PATCH.WK TD Q7D, #4 PATCH.WK 4 Refills Prov:MICHAEL STARR S. 01/26/19 Aspirin* (Aspirin* Chew) 81 Mg Tab.chew, 81 MG PO DAILY, #30 TAB.CHEW 8 Refills Prov:MICHAEL STARR S. 01/26/19 Carvedilol* (Carvedilol*) 25 Mg Tablet, 25 MG PO BID, #60 TAB 4 Refills Prov:MICHAEL STARR S. 01/26/19 Furosemide* (Furosemide*) 20 Mg Tablet, 20 MG PO DAILY, #30 TAB 4 Refills Prov:MICHAEL STARR S. 01/26/19 Pantoprazole* (Protonix*) 40 Mg Tablet.dr, 40 MG PO DAILY, #30 TAB 4 Refills Prov:MICHAEL STARR S. 01/26/19 Docusate Sodium* (Dok*) 100 Mg Tablet, 100 MG PO BID, #60 CAP 4 Refills Prov:MICHAEL STARR S. 01/26/19 Tiotropium [place]* (Spiriva*) 18 Mcg Cap.w.dev, 1 CAP INHALATION DAILY, #30 CAP 5 Refills Prov:MICHAEL STARR S. 01/26/19 Fluticasone-Vilanterol (Breo Ellipta Inhaler) 100-25 Mcg/Actuation Aer.pow.ba, 1 PUFF INHALATION DAILY, #1 INHALER 4 Refills Prov:MICHAEL STARR S. 01/26/19 Reported Medications Ipratropium-Albuterol (Ipratropium-Albuterol) 0.5-3 Mg/3 Ml Ampul.neb, 3 ML INHALATION Q6 PRN for WHEEZING AND SOB, #30 VIAL 11/20/18 Primary Care Provider [facility] Time spent on discharge: > 30 minutes Pending Labs Laboratory Tests Test 05/21/19 10:41 White Blood Count 7.6 10^3/ul (4.8-10.8) Red Blood Count 4.45 10^6/ul (4.20-5.40) Hemoglobin 10.7 g/dl (12.0-16.0) Hematocrit 35.8 % (37.0-47.0) Mean Corpuscular Volume 80.4 fl (82.0-101.0) Mean Corpuscular Hemoglobin 24.0 pg (29.0-33.0) Mean Corpuscular Hemoglobin Concent 29.9 g/dl (32.0-37.0) Red Cell Distribution Width 16.8 % (11.5-14.5) Platelet Count 306 10^3/UL (140-415) Mean Platelet Volume 9.3 fl (7.4-10.4) Immature Granulocytes % 0.400 % (0.001-0.429) Neutrophils % 73.6 % (39.0-77.0) Lymphocytes % 10.9 % (15.0-51.0) Monocytes % 10.9 % (0.0-11.0) Eosinophils % 3.4 % (0.0-7.0) Basophils % 0.8 % (0.0-2.0) Nucleated Red Blood Cells % 0.0 /100WBC (0.0-0.0) Immature Granulocytes # 0.030 10^3/ul (0.0-0.031) Neutrophils # 5.6 10^3/ul (1.6-7.5) Lymphocytes # 0.8 10^3/ul (0.8-2.9) Monocytes # 0.8 10^3/ul (0.3-0.9) Eosinophils # 0.3 10^3/ul (0.0-0.5) Basophils # 0.1 10^3/ul (0.0-0.1) Nucleated Red Blood Cells # 0.0 10^3/ul (0.0-0.0) Sodium Level 142 mmol/L (135-144) Potassium Level 3.5 mmol/L (3.5-5.1) Chloride Level 112 mmol/L (97-110) Carbon Dioxide Level 23 mmol/L (21-31) Anion Gap 7 (5-13) Blood Urea Nitrogen 49 mg/dl (7-20) Creatinine 3.08 mg/dl (0.44-1.00) Est Glomerular Filtrat Rate mL/min 19 mL/min (>60) Glucose Level 85 mg/dl (70-220) Calcium Level 8.0 mg/dl (8.4-10.2) Phosphorus Level 4.6 mg/dl (2.5-4.9) Magnesium Level 2.2 mg/dl (1.7-2.5) Total Bilirubin 0.3 mg/dl (0.2-1.3) Direct Bilirubin 0.00 mg/dl (0.00-0.20) Indirect Bilirubin 0.3 mg/dl (0-1.1) Aspartate Amino Transf (AST/SGOT) 26 IU/L (15-46) Alanine Aminotransferase (ALT/SGPT) 27 IU/L (13-69) Alkaline Phosphatase 86 IU/L (42-121) Total Protein 5.8 g/dl (6.1-8.1) Albumin 2.5 g/dl (3.3-4.9) Globulin 3.30 g/dl (1.3-3.2) Albumin/Globulin Ratio 0.75 HEATHER FITCH MD May 21, 2019 16:25
[2019-05-21] MEDS ORDERED: CLINDAMYCIN 150 MG CAP PO SCH (16:30)
--- NOTE | 2019-05-21 16:34 | PDOCDIS ---
Discharge Instructions CONDITION [id number] Patient Condition: [id number] Stable HOME CARE INSTRUCTIONS: [id number] Diet Instructions: [id number] Regular ACTIVITY: [id number] Activity Restrictions: [id number] Slowly Increase Activity HEATHER FITCH MD May 21, 2019 16:34
[2019-05-21] MEDS ORDERED: LACT1CAP28 PO (16:36)
[2019-05-21] MEDS ORDERED: ACET325T33 PO (16:36)
[2019-05-21] MEDS ORDERED: SILV20CR12 TOP (16:36)
[2019-05-21] MEDS ORDERED: CLIN150C17 PO (16:36)
[2019-05-21] MEDS ORDERED: SILVER SULFADIAZINE 1% 25 GM CR TOP SCH (21:00)
[2019-05-21] MEDS ORDERED: LACTOBACILLUS RHAMNOSUS CAP PO SCH (21:00)
[2019-05-21] MEDS ORDERED: ATORVASTATIN 80 MG TAB PO SCH (21:00)
[2019-05-22] MEDS ORDERED: CEFEPIME 1GM/50 ML (PMX) 50 ML IVPB SCH (09:00)
[2019-05-23] MEDS ORDERED: VANCOMYCIN 1 GM 250 ML IVPB SCH (12:00)
== END 2019-05-21 18:08 | disposition home or self-care (01) | DRG 603 ==
LOC: PP2 05:07
PROVIDERS: ADMIT Internal Medicine; ATTEND Internal Medicine
DX: L03.317 Cellulitis of buttock (principal); F14.10 Cocaine abuse, uncomplicated; D64.9 Anemia, unspecified; I12.9 Hypertensive chronic kidney disease with stage 1 through stage 4 chronic kidney disease, or unspecified chronic kidney disease; N18.9 Chronic kidney disease, unspecified
CPT/HCPCS: 80053; 83735; 84100; 85025; J0692; J1644; J3370; J7050

== ENCOUNTER 2019-06-20 03:35 | Inpatient (IN) | payer OTHER ==
[~2019-06-20] VITALS: Ht 167.6 cm; Wt 69.1 kg
[2019-06-20] VITALS (8 sets, daily range): BP systolic 125–153; BP diastolic 79–92; PULSE 71–82; RESP 18–22; Ht 167.6 cm; Wt 69.1 kg
[~2019-06-20 03:35] MED LIST changes: +ACET325T33 PO; +CLIN150C17 PO; +LACT1CAP28 PO; +SILV20CR12 TOP
[2019-06-20] MEDS ORDERED: METOLAZONE 2.5 MG TAB PO ONE (04:30)
[2019-06-20] MEDS ORDERED: BUMETANIDE 1 MG INJ IV ONE (04:30)
[2019-06-20] MEDS ORDERED: ONDANSETRON 4 MG INJ IV PRN (04:30)
[2019-06-20] MEDS ORDERED: NACL 0.9% 3 ML SYG IV SCH (04:30)
[2019-06-20] MEDS ORDERED: ACETAMINOPHEN 325 MG TAB PO PRN (04:30)
[2019-06-20] MEDS ORDERED: DOCUSATE SODIUM 100 MG CAP PO PRN (04:30)
[2019-06-20] MEDS ORDERED: morphine 2 MG INJ IV PRN (04:30)
[2019-06-20] MEDS ORDERED: LORAZEPAM 0.5 MG TAB PO PRN (04:30)
[2019-06-20] MEDS ORDERED: BISACODYL (EC) 5 MG TAB PO PRN (04:30)
[2019-06-20] MEDS ORDERED: AMLO-147 PO (04:39)
[2019-06-20] MEDS ORDERED: CARV12.598 PO (04:39)
[2019-06-20] MEDS ORDERED: CLON-379 PO (04:39)
[2019-06-20] MEDS ORDERED: FURO40TA4 PO (04:39)
[2019-06-20] MEDS ORDERED: HEPARIN 5,000 UNIT/1 ML VIAL SC SCH (06:00)
[2019-06-20] MEDS ORDERED: POTASSIUM CHLORIDE (SR) 20 MEQ TAB PO STA ×2 (06:41→12:54)
[2019-06-20] MEDS ORDERED: ALBUTEROL/IPRATROPIUM (NEB) 3 ML AMP INH PRN (12:00)
--- NOTE | 2019-06-20 12:14 | HP ---
Date/Time of Note Date/Time of Note DATE: 06/20/19 TIME: 11:06 Assessment/Plan VTE Prophylaxis Risk score (from Ns)>0 risk: 2 SCD applied (from [facility]): No SCD contraindicated: other Pharmacological prophylaxis: heparin Lines/Catheters Urinary Cath still in place: No Assessment/Plan Hospital Course 63-year-old female with a history of chronic substance use, congestive heart failure, chronic kidney disease amongst others who presented to outside emergency room with complaints of bilateral lower extremity edema and abdominal distention as well as shortness of breath on exertion currently admitted and managed as follows: 1. Shortness of breath, abdominal distention and associated anasarca: -In report, imaging had showed pleural effusion and ascites likely causing her symptoms, as mentioned earlier imaging reports not available for my review, will try to get reports. -Patient reports she was given 1 dose of intravenous Lasix with mild improvement in her symptoms. Continue Lasix at this time, will need nephrology consultation for management of CKD --We will get ultrasound to assess ascites for need for paracentesis -Also evaluate for possibility of thoracentesis 2. History of CHF: -Rule out acute exacerbation -We will need chest x-ray, 2D echo. -Patient denies chest pain, will get one set of cardiac enzymes. 3. Hypertension: -Patient currently exhibiting good control -Continue home medications 4. Chronic kidney disease: -From prior records, patient's baseline creatinine seems to be somewhere between 3.0 and 3.8, patient seems to be at baseline at this time -continue monitoring, await nephrology review, strict I's and O's 5. Chronic tobacco and substance abuse: -Status post cessation counseling for at least 3 minutes, will continue to reinforce throughout admission -dairy farm worker to provide resources. Further interventions will depend on her overall clinical course Plan of care has been discussed in detail with patient, questions have been answered Prophylaxis: Heparin, patient on PPI therapy for chronic GERD Result Diagram: 06/20/19 0508 06/20/19 0509 Results 24hrs Laboratory Tests Test 06/20/19 05:08 06/20/19 05:09 White Blood Count 6.0 # Red Blood Count 4.55 Hemoglobin 10.8 L Hematocrit 36.3 L Mean Corpuscular Volume 79.8 L Mean Corpuscular Hemoglobin 23.7 L Mean Corpuscular Hemoglobin Concent 29.8 L Red Cell Distribution Width 17.4 H Platelet Count 285 Mean Platelet Volume 9.9 Immature Granulocytes % 0.500 H Neutrophils % 69.1 Lymphocytes % 15.3 Monocytes % 10.5 Eosinophils % 3.8 Basophils % 0.8 Nucleated Red Blood Cells % 0.0 Immature Granulocytes # 0.030 Neutrophils # 4.1 Lymphocytes # 0.9 Monocytes # 0.6 Eosinophils # 0.2 Basophils # 0.1 Nucleated Red Blood Cells # 0.0 Hemoglobin A1c 5.8 Ethyl Alcohol Level < 10.0 H Prothrombin Time 14.0 Prothrombin Time Ratio 1.1 INR International Normalized Ratio 1.07 Activated Partial Thromboplast Time 40.9 H Sodium Level 142 Potassium Level 3.3 L Chloride Level 112 H Carbon Dioxide Level 25 Anion Gap 5 Blood Urea Nitrogen 48 H Creatinine 3.32 H Est Glomerular Filtrat Rate mL/min 17 L Glucose Level 120 Calcium Level 7.9 L Magnesium Level 2.1 Total Bilirubin 0.3 Direct Bilirubin 0.00 Indirect Bilirubin 0.3 Aspartate Amino Transf (AST/SGOT) 22 Alanine Aminotransferase (ALT/SGPT) 19 Alkaline Phosphatase 68 Total Protein 4.9 L Albumin 2.3 L Globulin 2.60 Albumin/Globulin Ratio 0.88 Triglycerides Level 66 Cholesterol Level 182 LDL Cholesterol, Calculated 131 HDL Cholesterol 38 Cholesterol/HDL Ratio 4.7 Thyroid Stimulating Hormone (TSH) 2.770 HPI/ROS Admit Date/Time Admit Date/Time Jun 20, 2019 at 03:35 Hx of Present Illness 63-year-old female with a past medical history of congestive heart failure, chronic kidney disease, hypertension, GERD who is also a current smoker and also uses cocaine as well as methamphetamine occasionally. She presented to outside emergency room at [facility] with complaints of abdominal distention and bilateral lower extremity swelling that has been chronic but has been worsening over the last few days. She is also developed shortness of breath especially with exertion and mild orthopnea. She was on chronic Lasix therapy as needed but this note this did not seem to be helping her symptoms. Apparently imaging report at [facility] was concerning for pleural effusion and ascites and patient was referred to us for further management due to insurance reasons. However at this time said reports are not available for review. Patient denies chest pain, she denies fever, denies dysuria or hematuria, denies hematemesis or vomiting, denies hematochezia or melanotic stools. . ROS 12 point review if systems was done and pertinent findings are as noted. PMH/Family/Social Past Medical History congestive heart failure, chronic kidney disease, hypertension, GERD, chronic substance use, Hep C Medications Current Medications IV Flush (NS 3 ml) 3 ml PER PROTOCOL IV ; Start 06/20/19 at 04:30 Ondansetron HCl (Zofran Inj) 4 mg Q6H PRN IV NAUSEA/VOMITING; Start 06/20/19 at 04:30 Acetaminophen (Tylenol Tab) 650 mg Q6H PRN PO .PAIN 1-3 OR TEMP; Start 06/20/19 at 04:30 Morphine Sulfate (morphine) 2 mg Q4H PRN IV .PAIN 7-10; Start 06/20/19 at 04:30 Docusate Sodium (Colace) 100 mg Q12H PRN PO .CONSTIPATION; Start 06/20/19 at 04:30 Bisacodyl (Dulcolax) 5 mg DAILY PRN PO .CONSTIPATION; Start 06/20/19 at 04:30 Heparin Sodium (Porcine) (Heparin (5000 Units/1ml)) 5,000 unit Q8 SC Last administered on 06/20/19at 05:48; Admin Dose 5,000 UNIT; Start 06/20/19 at 06:00 Lorazepam (Ativan) 0.5 mg Q8H PRN PO CONTROL WITHDRAWAL SYMPTOMS; Start 06/20/19 at 04:30 Coded Allergies: No Known Allergies (Verified Allergy, Unknown, 11/20/18) Past Surgical History Past Surgical Hx: other Family History Significant Family History: no pertinent family hx Social History Alcohol Use: occasionally Smoking Status: Current every day smoker Drug Use: cocaine, other (meth) Exam/Review of Systems Vital Signs Vitals Vital Signs Date Temp Pulse Resp B/P (MAP) Pulse Ox O2 O2 Flow FiO2 Time Delivery Rate 06/20/19 98.4 74 18 125/80 100 07:14 (95) Exam Constitutional: alert, oriented; No distress Psych: anxiety Head: normocephalic Eyes: PERRL; No icteric Neck: supple Respiratory: diminished breath sounds; No crackles/rales, No labored breathing Cardiovascular: regular rate and rhythm; No murmurs/extra sounds Gastrointestinal: soft, ascites, distended, firm; No rebound or guarding Extremities: edema Neurological: nl mental status, nl speech, lethargic; No focal weakness Skin: No rash or lesions JUVENAL LORA Jun 20, 2019 11:26
[2019-06-20] MEDS: CALCIUM ACETATE 667 MG CAP PO SCH ×2 (12:29→17:18)
--- NOTE | 2019-06-20 12:43 | QN ---
Documentation Comment Pt seen and examined renal consult dictated JESSICA NOLAN MD Jun 20, 2019 12:42
--- NOTE | 2019-06-20 14:04 | CONS ---
DATE OF ADMISSION: 06/20/2019 DATE OF CONSULTATION: 06/20/2019 REASON FOR CONSULTATION: Anasarca. HISTORY OF PRESENT ILLNESS: This is a 63-year-old female with a past medical history of CHF, CKD sta ge IV, hypertension, GERD, history of cocaine abuse with multiple admissions in the past secondary to anasarca, HERSON. The patient had HERSON in December 2018 where her creatinine had peaked to 5.28 and was 3.84 on discharge. The patient never really had any followup with anyone. This time, the patient c rasheeda to the emergency department at [facility] when patient was also having worsening abdomin al distention, bilateral lower extremity swelling for the past few days. According to the patient, s he has been taking Lasix 40 at home. She developed some shortness of breath and some mild orthopnea. According to the patient, she is not sure if she is following her diet and also sodium intake. At [facility], the patient had right-sided pleural effusion and ascites and referred for further m anagement. On arrival here, temperature 98.4, pulse 74, respirations 18, blood pressure 125/80. Lab s showed potassium of 3.3, BUN of 48, creatinine 3.32. HbA1c 5.8, calcium 7.9, white count 6.0, hemo globin 10.8, platelet count 285. Chest x-ray showed right-sided pleural effusion and left tiny occlu re and patient was admitted for further management. PAST MEDICAL HISTORY: 1. Hypertension. 2. Hyperlipidemia. 3. CKD stage IV. 4. History of proteinuria. 5. History of hepatitis C. 6. History of non-STEMI. 7. History of right-sided pleural effusion. ALLERGIES: NONE. MEDICATIONS TAKING AT HOME: 1. Lasix 40. 2. Ipratropium Spiriva. 3. Plavix, questionable. 4. Amlodipine. 5. Atorvastatin. 6. Coreg. 7. Breo. 8. Protonix. SOCIAL HISTORY: Still smokes cigarettes and use cocaine. FAMILY HISTORY: Noncontributory. REVIEW OF SYSTEMS: The patient complained of abdominal distention, swelling, lower extremity edema, also some orthopnea, PND. Denies any chest pain. Denies any headache, any blurry vision. Denies an y focal neurological deficits. PHYSICAL EXAMINATION: VITAL SIGNS: Currently, blood pressure 125/80, afebrile, heart rate 74, respirations 18, saturating 100%. GENERAL: The patient is awake, alert, oriented, does not appear to be any acute distress. HEENT: Pupils equal, round, reactive to light. HEART: Regular rate and rhythm. LUNGS: Decreased breath sounds bilaterally. ABDOMEN: Abdominal wall edema, ascites, distended, firm. EXTREMITIES: 2 to 3+ edema. LABORATORY DATA: Potassium 3.3, BUN of 48, creatinine 3.32. Last discharge creatinine was 3.08 and albumin is 2.3. White count of 6.0, hemoglobin 10.8, platelet count 285. ASSESSMENT: This is a 63-year-old female who presented with: 1. Anasarca with abdominal edema, bilateral lower extremity edema, could be secondary to chronic kid anum disease stage IV versus congestive heart failure. 2. Hypokalemia. 3. Chronic kidney disease stage IV. 4. History of proteinuria. 5. History of hepatitis C with hyperalbuminemia, rule out cirrhosis. 6. Noncompliance. 7. History of hypertension. 8. Hyperlipidemia. 9. Cocaine abuse. PLAN: At this period of time, the patient is admitted to [facility]. Will start the patient on aggressive diuresis with IV Bumex and will monitor kidney functions. We will check for UA, urine electrolytes proteinuria workup. Rest of the treatment will depend on the patient's hospitalization course. Dictated By: JESSICA KELLEY/MICHELLE Conf#: [id number] DID#: [id number] CC: BENIGNO RENDON MD;*End*
[2019-06-20] MEDS: ISOSORBIDE DINITRATE 5 MG TAB PO SCH ×2 (14:22→20:50)
[2019-06-20] MEDS: FUROSEMIDE 40 MG INJ IV SCH ×2 (14:24→17:19)
[2019-06-20] MEDS: DOCUSATE SODIUM 100 MG CAP PO SCH (17:18)
[2019-06-20] MEDS: HEPARIN 5,000 UNIT/1 ML VIAL SC SCH (20:59)
[2019-06-20] MEDS ORDERED: ATORVASTATIN 80 MG TAB PO SCH (21:00)
[2019-06-20] MEDS: NITROGLYCERIN (SL) 0.4 MG TAB SL PRN ×2 (21:37→21:44)
[2019-06-20] MEDS ORDERED: LORAZEPAM 2 MG INJ IV PRN (22:00)
[2019-06-21 04:11] VITALS: BP 131/79; PULSE 72; RESP 20
[2019-06-21] MEDS: FUROSEMIDE 40 MG INJ IV SCH (05:37)
[2019-06-21] MEDS: DOCUSATE SODIUM 100 MG CAP PO SCH (05:37)
[2019-06-21 07:14] VITALS: BP 129/73; PULSE 73; RESP 16
[2019-06-21] MEDS: CALCIUM ACETATE 667 MG CAP PO SCH ×2 (08:22→12:22)
[2019-06-21] MEDS: ISOSORBIDE DINITRATE 5 MG TAB PO SCH (08:23)
[2019-06-21] MEDS ORDERED: FLUTICASONE/VILANTEROL 100-25 INH SCH (09:00)
[2019-06-21] MEDS ORDERED: ASPIRIN 81 MG TAB PO SCH (09:00)
[2019-06-21] MEDS ORDERED: CLOPIDOGREL 75 MG TAB PO SCH (09:00)
[2019-06-21] MEDS ORDERED: TIOTROPIUM 18 MCG CAPSULE INHA DEV INH SCH (09:00)
[2019-06-21] MEDS ORDERED: AMLODIPINE 10 MG TAB PO SCH (09:00)
[2019-06-21] MEDS ORDERED: PANTOPRAZOLE (EC) 40 MG TAB PO SCH (09:00)
[2019-06-21] MEDS: HEPARIN 5,000 UNIT/1 ML VIAL SC SCH (10:27)
[2019-06-21] MEDS ORDERED: METOLAZONE 5 MG TAB PO SCH (11:00)
[2019-06-21 11:09] VITALS: BP 106/70; PULSE 70; RESP 16
--- NOTE | 2019-06-21 12:17 | DS ---
Date/Time of Note Date/Time of Note DATE: 06/21/19 TIME: 12:16 Discharge Summary Admission/Discharge Info Admit Date/Time Jun 20, 2019 at 03:35 Discharge Date/Time Discharge Diagnosis 63-year-old female with a history of chronic substance use, congestive heart failure, chronic kidney disease amongst others who presented to outside emergency room with complaints of bilateral lower extremity edema and abdominal distention as well as shortness of breath on exertion currently admitted and managed as follows: 1. CHF exacerbation, acute on chronic, diastolic -This is likely the source of her shortness of breath, abdominal distention and associated anasarca: -Thoracentesis and paracentesis attempted, but not enough fluid 2.. Hypertension 3. Chronic kidney disease: -From prior records, patient's baseline creatinine seems to be somewhere between 3.0 and 3.8, patient seems to be at baseline at this time 4. Chronic tobacco and substance abuse: -Status post cessation counseling for at least 3 minutes, resources provided . Patient Condition: Stable Consults Nephrology: Eliane caballero MD. . Hx of Present Illness 63-year-old female with a past medical history of congestive heart failure, chronic kidney disease, hypertension, GERD who is also a current smoker and also uses cocaine as well as methamphetamine occasionally. She presented to outside emergency room at [place] with complaints of abdominal distention and bilateral lower extremity swelling that has been chronic but has been worsening over the last few days. She is also developed shortness of breath especially with exertion and mild orthopnea. She was on chronic Lasix therapy as needed but this note this did not seem to be helping her symptoms. Apparently imaging report at [place] was concerning for pleural effusion and ascites and patient was referred to us for further management due to insurance reasons. However at this time said reports are not available for review. Patient denies chest pain, she denies fever, denies dysuria or hematuria, denies hematemesis or vomiting, denies hematochezia or melanotic stools. . Hospital Course 63-year-old female who was admitted yesterday after she had presented with lower extremity and abdominal swelling with generalized anasarca. Patient has a hi story of diastolic dysfunction and chronic kidney disease. She was managed conservatively with diuresis only. She was assessed for possible thoracentesis and paracentesis, however patient was found not to have enough amount of fluid for drainage. She felt better by day 2 of admission. At this time she is actually requesting discharge, she has been well diuresed, she was followed by nephrology in house as well. She has been cleared by nephrology for discharge and is being discharged home in stable condition. Patient has a history of substance use and abuse and was counseled daily on the need to quit. She was also seen by the case making machine operator and social economist who provided her with resources to help her with quitting. She is in agreement with the discharge plans and all her questions have been answered.. . Home Meds Active Scripts Metolazone* (Metolazone*) 5 Mg Tablet, 5 MG PO 0530,1730 for 30 Days, #60 TAB Prov:JUVENAL LORA 06/21/19 Silver Sulfadiazine* (Silvadene*) 1% - 20 Gm Cream.gm., 1 APPLIC TOP BID for 10 Days, #20 2 Refills Prov:HEATHER FITCH MD 05/21/19 Lactobacillus Rhamnosus GG (Culturelle) 1 Each Capsule, 1 CAP PO BID for 14 Days, #30 CAP Prov:HEATHER FITCH MD 05/21/19 Acetaminophen* (Tylenol*) 325 Mg Tablet, 650 MG PO Q6H PRN for .PAIN 1-3 OR TEMP for 1 Day, TAB Prov:HEATHER FITCH MD 05/21/19 Clindamycin Hcl* (Cleocin*) 150 Mg Cap, 450 MG PO Q8 for 5 Days, #15 CAP Prov:HEATHER FITCH MD 05/21/19 Ondansetron Hcl* (Zofran*) 8 Mg Tablet, 8 MG PO Q6H PRN for NAUSEA AND OR VOMITING, #60 TAB Prov:MICHAEL STARR S. 01/26/19 Polyethylene Glycol* (Miralax*) 17 Gm Powd.pack, 17 GM PO DAILY, #1 BOTTLE 4 Refills Prov:MICHAEL STARR S. 01/26/19 Guaifenesin (Guaifenesin) 100 Mg/5 Ml Liquid, 200 MG PO Q4H PRN for COUGH, #1 BOTTLE Prov:MICHAEL STARR S. 01/26/19 Calcium Acetate* (Calcium Acetate*) 667 Mg Capsule, 667 MG PO WITH MEALS, #90 CAP 4 Refills Prov:MICHAEL STARR S. 01/26/19 Isosorbide Dinitrate* (Isordil*) 5 Mg Tab, 5 MG PO TID, #90 TAB 4 Refills Prov:MICHAEL STARR S. 01/26/19 Atorvastatin* (Atorvastatin*) 80 Mg Tablet, 80 MG PO HS, #30 TAB 8 Refills Prov:MICHAEL STARR S. 01/26/19 Clopidogrel Bisulfate (Clopidogrel) 75 Mg Tablet, 75 MG PO DAILY, #30 TAB 8 Refills Prov:MICHAEL STARR S. 01/26/19 Clonidine Patch (CLONIDINE PATCH) 0.3 Mg/24 Hr Patch, 1 PATCH.WK TD Q7D, #4 PATCH.WK 4 Refills Prov:MICHAEL STARR S. 01/26/19 Aspirin* (Aspirin* Chew) 81 Mg Tab.chew, 81 MG PO DAILY, #30 TAB.CHEW 8 Refills Prov:MICHAEL STARR S. 01/26/19 Carvedilol* (Carvedilol*) 25 Mg Tablet, 25 MG PO BID, #60 TAB 4 Refills Prov:MICHAEL STARR S. 01/26/19 Furosemide* (Furosemide*) 20 Mg Tablet, 20 MG PO DAILY, #30 TAB 4 Refills Prov:MICHAEL STARR S. 01/26/19 Pantoprazole* (Protonix*) 40 Mg Tablet.dr, 40 MG PO DAILY, #30 TAB 4 Refills Prov:MICHAEL STARR S. 01/26/19 Docusate Sodium* (Dok*) 100 Mg Tablet, 100 MG PO BID, #60 CAP 4 Refills Prov:MICHAEL STARR S. 01/26/19 Tiotropium [place]* (Spiriva*) 18 Mcg Cap.w.dev, 1 CAP INHALATION DAILY, #30 CAP 5 Refills Prov:MICHAEL STARR S. 01/26/19 Fluticasone-Vilanterol (Breo Ellipta Inhaler) 100-25 Mcg/Actuation Aer.pow.ba, 1 PUFF INHALATION DAILY, #1 INHALER 4 Refills Prov:MICHAEL STARR S. 01/26/19 Reported Medications Amlodipine Besylate* (Amlodipine Besylate*) 10 Mg Tablet, 10 MG PO DAILY, #30 TAB 06/20/19 Carvedilol* (Coreg*) 12.5 Mg Tablet, 12.5 MG PO BID, #60 TAB 06/20/19 Furosemide* (Furosemide*) 40 Mg Tablet, 40 MG PO DAILY, TAB 06/20/19 Clonidine Hcl* (Clonidine Hcl*) 0.1 Mg Tab, 0.1 MG PO BID, TAB 06/20/19 Ipratropium-Albuterol (Ipratropium-Albuterol) 0.5-3 Mg/3 Ml Ampul.neb, 3 ML INHALATION Q6 PRN for WHEEZING AND SOB, #30 VIAL 11/20/18 Follow-up Plan Followup with your primary doctor within the next 1-2 weeks. If you don't have one please let someone know, we can give you resources that may help you pick one. You may call Dr Christopher Michel's office. he's accepting new patients Name, Degree: Christopher Michel MD Specialty: Internal Medicine Comments: Office Address: [address] [place] [address] Office Office You may also call your insurance company to assign one to you. Review your medication list with your nurse before leaving and if you need new prescriptions please let your nurse know. I may have made changes to your home medications or given you new prescriptions, please let your primary doctor know as well. Stay compliant with your medications and report any side effects to your PCP or pharmacist. Return to the ER if you have any concerns and cannot reach your doctors or call your insurance company, they usually have a nurse that can help you. Primary Care Provider [facility], [place] Time spent on discharge: > 30 minutes Pending Labs Laboratory Tests Test 06/20/19 15:30 06/20/19 22:25 06/21/19 04:29 Urine Color STRAW (YELLOW) Urine Clarity CLEAR (CLEAR) Urine pH 7.0 (5.0-9.0) Urine Specific 1.005 (1.003-1.030) [place] Urine Ketones NEGATIVE mg/dL (NEGATIVE) Urine Nitrite NEGATIVE mg/dL (NEGATIVE) Urine Bilirubin NEGATIVE mg/dL (NEGATIVE) Urine Urobilinogen NEGATIVE mg/dL (NEGATIVE) Urine Leukocyte NEGATIVE Rafael/ul Esterase Urine Hemoglobin NEGATIVE mg/dL (NEGATIVE) Urine Glucose NEGATIVE mg/dL (NEGATIVE) Urine Total NEGATIVE Protein mg/dl (NEGATIVE) Urine Opiates NEGATIVE (NEGATIVE) Screen Urine Barbiturates NEGATIVE (NEGATIVE) Urine Amphetamines NEGATIVE (NEGATIVE) Screen Urine NEGATIVE (NEGATIVE) Benzodiazepines Screen Urine Cocaine POSITIVE (NEGATIVE) Screen Urine Cannabinoids NEGATIVE (NEGATIVE) Troponin I < 0.012 0.015 ng/ml (0.000-0.120 ng/ml (0.000-0.120 ) ) White Blood Count 4.5 10^3/ul (4.8-10.8) Red Blood Count 4.12 10^6/ul (4.20-5.40 ) Hemoglobin 9.7 g/dl (12.0-16.0) Hematocrit 32.4 % (37.0-47.0) Mean Corpuscular 78.6 Volume fl (82.0-101.0) Mean Corpuscular 23.5 Hemoglobin pg (29.0-33.0) Mean Corpuscular 29.9 Hemoglobin Concent g/dl (32.0-37.0) Red Cell 17.3 % (11.5-14.5) Distribution Width Platelet Count 310 10^3/UL (140-415) Mean Platelet 9.7 fl (7.4-10.4) Volume Immature 0.400 Granulocytes % % (0.001-0.429) Neutrophils % 62.6 % (39.0-77.0) Lymphocytes % 20.2 % (15.0-51.0) Monocytes % 11.2 % (0.0-11.0) Eosinophils % 4.5 % (0.0-7.0) Basophils % 1.1 % (0.0-2.0) Nucleated Red Blood 0.0 Cells % /100WBC (0.0-0.0) Immature 0.020 Granulocytes # 10^3/ul (0.0-0.031 ) Neutrophils # 2.8 10^3/ul (1.6-7.5) Lymphocytes # 0.9 10^3/ul (0.8-2.9) Monocytes # 0.5 10^3/ul (0.3-0.9) Eosinophils # 0.2 10^3/ul (0.0-0.5) Basophils # 0.1 10^3/ul (0.0-0.1) Nucleated Red Blood 0.0 Cells # 10^3/ul (0.0-0.0) Sodium Level 143 mmol/L (135-144) Potassium Level 3.8 mmol/L (3.5-5.1) Chloride Level 112 mmol/L (97-110) Carbon Dioxide 28 mmol/L (21-31) Level Anion Gap 3 (5-13) Blood Urea 49 mg/dl (7-20) Nitrogen Creatinine 3.25 mg/dl (0.44-1.00) Est Glomerular 18 mL/min (>60) Filtrat Rate mL/min Glucose Level 90 mg/dl (70-220) Calcium Level 8.0 mg/dl (8.4-10.2) Phosphorus Level 4.6 mg/dl (2.5-4.9) Magnesium Level 2.1 mg/dl (1.7-2.5) Total Bilirubin 0.3 mg/dl (0.2-1.3) Direct Bilirubin 0.00 mg/dl (0.00-0.20) Indirect Bilirubin 0.3 mg/dl (0-1.1) Aspartate Amino 18 IU/L (15-46) Transf (AST/SGOT) Alanine 16 IU/L (13-69) Aminotransferase (A LT/SGPT) Alkaline 64 IU/L (42-121) Phosphatase Total Protein 5.0 g/dl (6.1-8.1) Albumin 2.1 g/dl (3.3-4.9) Globulin 2.90 g/dl (1.3-3.2) Albumin/Globulin 0.72 Ratio JUVENAL LORA. Jun 21, 2019 12:17
[2019-06-21] MEDS ORDERED: METO5TAB65 PO (12:21)
--- NOTE | 2019-06-21 14:25 | PDOCDIS ---
Discharge Instructions DIAGNOSIS Discharge Diagnosis 63-year-old female with a history of chronic substance use, congestive heart failure, chronic kidney disease amongst others who presented to outside emergency room with complaints of bilateral lower extremity edema and abdominal distention as well as shortness of breath on exertion currently admitted and managed as follows: 1. Shortness of breath, abdominal distention and associated anasarca: -In report, imaging had showed pleural effusion and ascites likely causing her symptoms, as mentioned earlier imaging reports not available for my review, will try to get reports. -Patient reports she was given 1 dose of intravenous Lasix with mild improve ment in her symptoms. Continue Lasix at this time, will need nephrology consultation for management of CKD --We will get ultrasound to assess ascites for need for paracentesis -Also evaluate for possibility of thoracentesis 2. History of CHF: -Rule out acute exacerbation -We will need chest x-ray, 2D echo. -Patient denies chest pain, will get one set of cardiac enzymes. 3. Hypertension: -Patient currently exhibiting good control -Continue home medications 4. Chronic kidney disease: -From prior records, patient's baseline creatinine seems to be somewhere between 3.0 and 3.8, patient seems to be at baseline at this time -continue monitoring, await nephrology review, strict I's and O's 5. Chronic tobacco and substance abuse: -Status post cessation counseling for at least 3 minutes, will continue to reinforce throughout admission -munitions worker to provide resources. Further interventions will depend on her overall clinical course Plan of care has been discussed in detail with patient, questions have been answered Prophylaxis: Heparin, patient on PPI therapy for chronic GERD CONDITION [id number] Patient Condition: [id number] Stable HOME CARE INSTRUCTIONS: [id number] Diet Instructions: [id number] Low Fat /Cholesterol ACTIVITY: [id number] Activity Restrictions: [id number] Slowly Increase Activity Rest between Activity FOLLOW UP/APPOINTMENTS Follow-up Plan Followup with your primary doctor within the next 1-2 weeks. If you don't have one please let someone know, we can give you resources that may help you pick one. You may call Dr Crhistopher Michel's office. he's accepting new patients Name, Degree: Christopher Michel MD Specialty: Internal Medicine Comments: Office Address: [address] [place] [address] [place], [place] [id number] Office Office You may also call your insurance company to assign one to you. Review your medication list with your nurse before leaving and if you need new prescriptions please let your nurse know. I may have made changes to your home medications or given you new prescriptions, please let your primary doctor know as well. Stay compliant with your medications and report any side effects to your PCP or pharmacist. Return to the ER if you have any concerns and cannot reach your doctors or call your insurance company, they usually have a nurse that can help you. . OTHER ORDERS: Other Orders: Please stop using cocaine . If you have already stopped, Good for you!!!. It is however an ongoing process. If you need help or resources, please let someone know before you leave. We are here to help you. It has been associated with a lot of disease processes and is not favourable for healing. JUVENAL LORA Jun 21, 2019 14:25
[2019-06-21] MEDS ORDERED: FURO40TA4 PO (14:26)
--- NOTE | 2019-06-21 14:44 | CONS ---
Assessment/Plan Assessment/Plan Assessment/Plan (Daily) This is a 63-year-old female who presented with: 1. Anasarca with abdominal edema, bilateral lower extremity edema, could be secondary to chronic kidney disease stage IV versus congestive heart failure. 2. Hypokalemia. 3. Chronic kidney disease stage IV. 4. History of proteinuria. 5. History of hepatitis C with hyperalbuminemia, rule out cirrhosis. 6. Noncompliance. 7. History of hypertension. 8. Hyperlipidemia. 9. Cocaine abuse. PLan - Repeat UA neg - cw iv lasix 40 bid, add metalozone - fluid restiction - low salt diet Consultation Date/Type/Reason Admit Date/Time Jun 20, 2019 at 03:35 Initial Consult Date Date/Time of Note DATE: 06/21/19 TIME: 14:42 24 HR Interval Summary Free Text/Dictation Patient felt a lot better today Repeat UA is negative Exam/Review of Systems Exam Vitals Vital Signs Date Temp Pulse Resp B/P (MAP) Pulse Ox O2 O2 Flow FiO2 Time Delivery Rate 06/21/19 97.9 70 16 106/70 93 11:09 (82) Intake and Output 06/20/19 06/20/19 06/21/19 1515:00 23:00 07:00 IntakeIntake Total 540 ml 200 ml 100 ml OutputOutput Total 200 ml 1500 ml BalanceBalance 540 ml 0 ml -1400 ml Exam GENERAL: The patient is awake, alert, oriented, does not appear to be any acute distress. HEENT: Pupils equal, round, reactive to light. HEART: Regular rate and rhythm. LUNGS: Decreased breath sounds bilaterally. ABDOMEN: Abdominal wall edema, ascites, distended, firm.improved EXTREMITIES: 2 +edema Results Result Diagram: 06/21/19 0429 06/21/19 0429 Results 24hrs Laboratory Tests Test 06/20/19 15:30 06/20/19 22:25 06/21/19 04:29 Urine Color STRAW Urine Clarity CLEAR Urine pH 7.0 Urine Specific [place] 1.005 Urine Ketones NEGATIVE Urine Nitrite NEGATIVE Urine Bilirubin NEGATIVE Urine Urobilinogen NEGATIVE Urine Leukocyte Esterase NEGATIVE Urine Hemoglobin NEGATIVE Urine Glucose NEGATIVE Urine Total Protein NEGATIVE Urine Opiates Screen NEGATIVE Urine Barbiturates NEGATIVE Urine Amphetamines Screen NEGATIVE Urine Benzodiazepines Screen NEGATIVE Urine Cocaine Screen POSITIVE Urine Cannabinoids NEGATIVE Troponin I < 0.012 0.015 White Blood Count 4.5 #L Red Blood Count 4.12 L Hemoglobin 9.7 L Hematocrit 32.4 L Mean Corpuscular Volume 78.6 L Mean Corpuscular Hemoglobin 23.5 L Mean Corpuscular Hemoglobin Concent 29.9 L Red Cell Distribution Width 17.3 H Platelet Count 310 Mean Platelet Volume 9.7 Immature Granulocytes % 0.400 Neutrophils % 62.6 Lymphocytes % 20.2 Monocytes % 11.2 H Eosinophils % 4.5 Basophils % 1.1 Nucleated Red Blood Cells % 0.0 Immature Granulocytes # 0.020 Neutrophils # 2.8 Lymphocytes # 0.9 Monocytes # 0.5 Eosinophils # 0.2 Basophils # 0.1 Nucleated Red Blood Cells # 0.0 Sodium Level 143 Potassium Level 3.8 Chloride Level 112 H Carbon Dioxide Level 28 Anion Gap 3 L Blood Urea Nitrogen 49 H Creatinine 3.25 H Est Glomerular Filtrat Rate mL/min 18 L Glucose Level 90 Calcium Level 8.0 L Phosphorus Level 4.6 Magnesium Level 2.1 Total Bilirubin 0.3 Direct Bilirubin 0.00 Indirect Bilirubin 0.3 Aspartate Amino Transf (AST/SGOT) 18 Alanine Aminotransferase (ALT/SGPT) 16 Alkaline Phosphatase 64 Total Protein 5.0 L Albumin 2.1 L Globulin 2.90 Albumin/Globulin Ratio 0.72 Medications Medication Current Medications IV Flush (NS 3 ml) 3 ml PER PROTOCOL IV ; Start 06/20/19 at 04:30 Ondansetron HCl (Zofran Inj) 4 mg Q6H PRN IV NAUSEA/VOMITING; Start 06/20/19 at 04:30 Acetaminophen (Tylenol Tab) 650 mg Q6H PRN PO .PAIN 1-3 OR TEMP; Start 06/20/19 at 04:30 Morphine Sulfate (morphine) 2 mg Q4H PRN IV .PAIN 7-10; Start 06/20/19 at 04:30 Bisacodyl (Dulcolax) 5 mg DAILY PRN PO .CONSTIPATION; Start 06/20/19 at 04:30 Lorazepam (Ativan) 0.5 mg Q8H PRN PO CONTROL WITHDRAWAL SYMPTOMS; Start 06/20/19 at 04:30 Docusate Sodium (Colace) 100 mg Q12H PO Last administered on 06/21/19at 05:37; Admin Dose 100 MG; Start 06/20/19 at 16:30 Heparin Sodium (Porcine) (Heparin (5000 Units/1ml)) 5,000 unit Q12 SC Last administered on 06/21/19 10:27; Admin Dose 5,000 UNIT; Start 06/20/19 at 21:00 Amlodipine Besylate (Norvasc) 10 mg DAILY PO Last administered on 06/21/19 08:25; Admin Dose 10 MG; Start 06/21/19 at 09:00 Aspirin (Aspirin) 81 mg DAILY PO Last administered on 06/21/19 08:23; Admin Dose 81 MG; Start 06/21/19 at 09:00 Atorvastatin Calcium (Lipitor) 80 mg HS PO Last administered on 06/20/19 20:49; Admin Dose 80 MG; Start 06/20/19 at 21:00 Calcium Acetate (Phoslo) 667 mg WITH MEALS PO Last administered on 06/21/19 12:22; Admin Dose 667 MG; Start 06/20/19 at 12:00 Carvedilol (Coreg) 12.5 mg BID PO Last administered on 06/21/19 08:24; Admin Dose 12.5 MG; Start 06/20/19 at 21:00 Clonidine (Catapres) 0.1 mg BID PO Last administered on 06/21/19 08:23; Admin Dose 0.1 MG; Start 06/20/19 at 21:00 Clopidogrel Bisulfate (plaVIX) 75 mg DAILY PO Last administered on 06/21/19 08:22; Admin Dose 75 MG; Start 06/21/19 at 09:00 Fluticasone/ Vilanterol (Breo Ellipta 100-25 Mcg Inh) 1 inh DAILY INH Last administered on 06/21/19 08:29; Admin Dose 1 INH; Start 06/21/19 at 09:00 Albuterol/ Ipratropium (Duoneb) 3 ml Q6H RESP THERAPY PRN INH WHEEZING AND SOB; Start 06/20/19 at 12:00 Isosorbide Dinitrate (Isordil) 5 mg TID PO Last administered on 06/21/19 08:23; Admin Dose 5 MG; Start 06/20/19 at 13:00 Pantoprazole (Protonix Tab) 40 mg DAILY PO Last administered on 06/21/19 08:24; Admin Dose 40 MG; Start 06/21/19 at 09:00 Tiotropium [place] (Spiriva) 1 inh DAILY INH Last administered on 06/21/19 08:26; Admin Dose 1 INH; Start 06/21/19 at 09:00 Furosemide (Lasix) 40 mg BID DIURETICS IV Last administered on 06/21/19 05:37; Admin Dose 40 MG; Start 06/20/19 at 13:00 Nitroglycerin (Nitroglycerin (Sl Tab) 0.4 Mg) 1 tab Q5M PRN SL ANGINA Last administered on 06/20/19at 21:44; Admin Dose 1 TAB; Start 06/20/19 at 21:30 Lorazepam (Ativan) 0.5 mg Q4 PRN IV ANXIETY Last administered on 06/20/19 22:05; Admin Dose 0.5 MG; Start 06/20/19 at 22:00 Miscellaneous Information Patients own medicat... BID@10,16 XX ; Start 06/21/19 at 10:00 Metolazone (Zaroxolyn) 5 mg 1930,6780 PO Last administered on 06/21/19at 12:21; Admin Dose 5 MG; Start 06/21/19 at 11:00 JESSICA NOLAN MD Jun 21, 2019 14:44
--- NOTE | 2019-06-26 09:20 | RADRPT ---
Vent Rate: 79 bpm RR Interval: 756 msec NV Interval: 141 msec QRS Duration: 77 msec QT Interval: 389 msec QTC Interval: 447 msec P-R-T [place]: 81 - 48 - 207 degrees Sinus rhythm...normal P axis, V-rate 50- 99 Ventricular premature complex...V complex w/ short R-R interval Probable anterior infarct, age indeterminate...Q >35mS, T neg, V2-V5 Lateral wall also involved...lat Q or ST-T abnormalities Electronically Signed By: Alan Solano
== END 2019-06-21 16:23 | disposition home or self-care (01) | DRG 291 ==
LOC: 6WM 03:35
PROVIDERS: ADMIT Family Medicine; ATTEND Family Medicine
DX: I13.0 Hypertensive heart and chronic kidney disease with heart failure and stage 1 through stage 4 chronic kidney disease, or unspecified chronic kidney disease (principal); I50.33 Acute on chronic diastolic (congestive) heart failure; N18.4 Chronic kidney disease, stage 4 (severe); Z72.0 Tobacco use; F15.10 Other stimulant abuse, uncomplicated; K21.9 Gastro-esophageal reflux disease without esophagitis; E87.6 Hypokalemia
CPT/HCPCS: 71045; 76775; 80053; 80061; 80307; 81003; 83036; 83735; 84100; 84443; 84484; 85025; 85610; 85730; 87081; 93005; J1644; J1940; J2060